=== PATIENT | male | born 1950 | race Caucasian/White ===

== ENCOUNTER 2021-08-24 08:27 | Outpatient (CLI) | payer MEDICARE, SELFPAY | END 2021-08-24 08:28 | disposition home or self-care (01) | LOC: RAD 08:29 | PROVIDERS: PCP Family Medicine; Visit Provider Family Medicine | DX: R01.1 Cardiac murmur, unspecified (principal); Z01.818 Encounter for other preprocedural examination | CPT/HCPCS: 93306 ==

== ENCOUNTER 2021-08-27 06:51 | Day surgery (SDC) | payer MEDICARE, SELFPAY ==
[2021-08-27] VITALS (16 sets, daily range): BP systolic 93–170; BP diastolic 58–90; PULSE 48–65; RESP 12–16; TEMP 36.1–36.4; O2SAT 92–96; BMI 31.3
[2021-08-27] MEDS: SODIUM CHLORIDE 0.9 % (FLUSH) 10 ML SYRINGE IVF (07:40)
[2021-08-27] MEDS: LACTATED RINGERS 1000 ML 1,000 ML 100 ML IV ×2 (07:40→09:07)
[2021-08-27 07:52] LABS: Glucose, Point-of-Care* 149 mg/dl (60-115)
[2021-08-27] MEDS: CEFAZOLIN 2 GM INJ IVP (08:34)
[2021-08-27] MEDS: ROPIVACAINE 0.5% 30 ML 150 MG INJECTION (08:55)
--- NOTE | 2021-08-27 09:11 | P.ORPRC_ITS ---
Procedure Note Date of procedure: 08/27/21 Procedure: PREOPERATIVE DIAGNOSIS: 1. Left knee medial meniscus tear POSTOPERATIVE DIAGNOSIS: 1. Left knee medial meniscus tear 2. 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 Left knee arthroscopic partial medial menisectomy 2. Left chondroplasty medial femoral condyle SURGEON: Davidson Stern M.D. BRICKMASON CONTRACTOR: Kostas THOMSON Of note, an equal opportunity assistant was critical for this case to aid in patient positioning, knee manipulation, instrument exchange, and closure. ANESTHESIA: Spinal EBL: 2ml TOURNIQUET: 25 minutes at 300 torr COMPLICATIONS: None evident INDICATIONS: The patient is a pleasant 70-year-old male who has experienced left knee pain particularly with any twisting or turning. Physical exam was concerning for medial meniscus tear, this was confirmed on MRI. Additionally, attempted nonoperative management has been tried, and failed. Thus, surgery was recommended. FINDINGS: Grade 4 chondromalacia medial femoral condyle with dimensions noted above. Complex tearing posterior horn medial meniscus approaching the posterior root. The tear did penetrate back to the posterior capsule. Lateral meniscus was intact. Lateral articular cartilage intact. Patellofemoral compartment showed grade 2 chondromalacia trochlear groove. ACL and PCL were intact robust. DESCRIPTION OF PROCEDURE: After a thorough discussion of risks, benefits, and alternatives, the patient was brought to the operating room and placed upon the operating table. Induction of anesthesia was undertaken as previously noted. 2g iv Ancef was administered within 1 hr of incision preoperatively. Appropriate time-out was performed identifying proper patient, site, and procedure. The left lower extremity was prepped and draped in the appropriate sterile fashion using ChloraPrep. The limb was exsanguinated and tourniquet inflated. Anterolateral and anteromedial portals were established with an 11 blade, and a diagnostic arthroscopy was performed. This identified the findings as noted above. Following the diagnostic arthroscopy, a partial medial menisectomy was performed with the combination of basket forceps and a motorized shaver. Following this, the meniscus was re-probed and found to be stable. Approximately 25-33 % of the overall meniscus required resection. At this stage, the shaver was reinserted into the suprapatellar pouch and all remaining meniscal debris was evacuated. Instruments were removed, excess fluid was drained, and closure performed with 4-0 Monocryl with Steri-Strips. Dressings were applied, the tourniquet deflated, and the patient was awoken from anesthesia and transferred to the PACU in stable condition. PLAN: 1. Weightbear as tolerated operative extremity. Crutch / walker ambulation assistance PRN. Straight leg raise to be initiated starting tomorrow by the patient. 2. Ice, acetominophen and/or ibuprofen, and Percocet for pain as needed. 3. Knee range of motion and quad sets/straight leg raise regularly 4. Follow up with PA visit in 7-10 days. for a wound check. Initiate physical therapy at that time
--- NOTE | 2021-08-27 09:23 | W.ANESCHARGE ---
Anesthesia Charges Start Date/Time Anesthesia Start Date: 08/27/21 Anesthesia Start Time: 08:26 Stop Date/Time Anesthesia Stop Date: 08/27/21 Anesthesia Stop Time: 09:20 Summary Emergency: No
[2021-08-27] MEDS: OxyCODONE/APAP 5-325 TABLET 1 TAB PO (14:17)
--- NOTE | 2021-08-27 14:24 | SUR.PHASEII ---
At 1300, pt able to bear weight on legs and ambulated with walker to bathroom. pt didn't feel the urge to urinate but his short were wet. He was able to urinate when arriving to bathroom. Upon discharge, pt reported left knee pain 6/10, facial grimacing and moving in chair. See eMAR.
== END 2021-08-27 14:26 | disposition home or self-care (01) ==
PROVIDERS: PCP Family Medicine; Visit Provider Orthopaedic Surgery Sports Medicine
PROC: (CPT 29870; principal; 2021-08-27 08:30)
DX: M23.222 Derangement of posterior horn of medial meniscus due to old tear or injury, left knee (principal); M94.262 Chondromalacia, left knee
CPT/HCPCS: 29881; 29879; 01400; 82947; A9270; J0690; J2250; J2405; J2704; J2795; J3010; J7120

== ENCOUNTER 2021-11-05 16:08 | Outpatient (CLI) | payer MEDICARE, SELFPAY ==
[2021-11-05 14:04] LABS: Chloride* 100 mmol/L (96-114); Sodium* 137 mmol/L (135-149)
[2021-11-05 14:07] LABS: Creatinine* 1.2 mg/dL (0.5-1.5); Estimated Glomerular Filt Rate 65 ml/min
[2021-11-05 14:08] LABS: Blood Urea Nitrogen* 18 mg/dL (7-30); Calcium* 9.1 mg/dL (8.4-10.6); Carbon Dioxide* 26 mmol/L (20-32); Glucose* 142 mg/dL (60-115)
== END 2021-11-05 16:09 | disposition home or self-care (01) ==
PROVIDERS: PCP Family Medicine; Visit Provider Family Medicine
DX: E11.9 Type 2 diabetes mellitus without complications (principal)
CPT/HCPCS: 80048

== ENCOUNTER 2021-12-03 14:38 | Outpatient (CLI) | payer MEDICARE, SELFPAY ==
--- OUTSIDE RECORDS SUMMARY | 2021-12-03 08:21 | XMS_ITS | Clinical Summary ---
:1950 Author Organization Supply Address [facility] [place] [address] Care Team Providers Name Role Phone Victor Manuel Olea MD Primary Care Provider [phone] Allergies No known active allergies Medications Medication Sig Dispensed Refills Start Date End Date Status loratadine (CLARITIN) 10 MG Take 10 mg by 0 Active tablet mouth daily LOSARTAN POTASSIUM PO 0 Active Rosuvastatin Calcium Take 5 mg by 0 Active (CRESTOR PO) mouth Aspirin 75 MG Take 81 mg by 30 tablet 1 03/25/2014 A ctive CHEWIndications: Family mouth daily history of ischemic heart disease hydrochlorothiazide 12.5 MG Take 1 tablet 30 tablet 0 03/04/19 18 Active TABS tablet (12.5 mg) by mouth daily Social History Tobacco Use Types Packs/Day Years Used Date Smoking Tobacco: Never Alcohol Use Standard Drinks/Week Comments Yes 0 (1 standard drink = 0.6 oz pure alcoho l) social Sex Assigned at Date Recorded Not on file Last Filed Vital Signs Vital Sign Reading Time Taken Comments Blood Pressure 175/109 03/04/2017 8:15 PM MEETING FACILITATOR Pulse 68 03/04/2017 6:32 PM MEETING FACILITATOR Temperature 36.3 ??C (97.4 ??F) 03/04/2017 6:32 PM MEETING FACILITATOR Respiratory Rate 14 03/04/2017 8:15 PM MEETING FACILITATOR Oxygen Saturation 93% 03/04/2017 8:00 PM MEETING FACILITATOR Inhaled Oxygen Concentration - - Weight 104.3 kg (230 lb) 03/25/2014 9:13 AM MEETING FACILITATOR Height 175.3 cm (5' 9) 03/25/2014 9:13 AM MEETING FACILITATOR Body Mass Index 33.97 03/25/2014 9:13 AM MEETING FACILITATOR Plan of Treatment Not on file Care Teams Jewel Gauger Relationship Specialty Start Date End Date Victor Manuel Olea MD PCP - General 03/04/17
--- OUTSIDE RECORDS SUMMARY | 2021-12-03 08:21 | XMS_ITS | Encounter Summary ---
:1950 Author Organization [place] Address [address] [place] [address] Care Team Providers Name Role Phone Victor Manuel Olea MD Primary Care Provider [phone] Reason for Visit Reason Comments Hypertension Encounter Details Date Type Department Care Team Description 03/04/2017 Emergency [facility]den Burton, Essential hypertension [facility] Emergency DO Dept [facility] [address] [place], [place] [address] [employer] [address] [id number] [place] [address] (Wo rk) Social History Tobacco Use Types Packs/Day Years Used Date Smoking Tobacco: Never Alcohol Use Standard Drinks/Week Comments Yes 0 (1 standard drink = 0.6 oz pure alcoho l) social Sex Assigned at Date Recorded Not on file documented as of this encounter Last Filed Vital Signs Vital Sign Reading Time Taken Comments Blood Pressure 175/109 03/04/2017 8:15 PM BIOTECHNICIAN Pulse 68 03/04/2017 6:32 PM BIOTECHNICIAN Temperature 36.3 ??C (97.4 ??F) 03/04/2017 6:32 PM BIOTECHNICIAN Respiratory Rate 14 03/04/2017 8:15 PM BIOTECHNICIAN Oxygen Saturation 93% 03/04/2017 8:00 PM BIOTECHNICIAN Inhaled Oxygen Concentration - - Weight - - Height - - Body Mass Index - - documented in this encounter Discharge Instructions Discharge InstructionsJayden Valladares, - 03/04/2017 7:38 PM BIOTECHNICIAN Images from the original note were not included. High Blood Pressure,??New, Begin Treatment Your blood pressure was high enough today to start treatment with medicines. Often health care providers don???t know what causes high blood pressure (hypertension). But it can be controlled with lifestyle changes and medicines. High blood pressure usually has no symptoms. But it can sometimes cause he adache, dizziness, blurred vision, a rushing sound in your ears, chest pain, or shortness of breath.But even without symptoms, high blood pressure that???s not treated raises your risk for heart attack and stroke. High blood pressure is a serious health risk and shouldn???t be ignored. A blood pressure reading is made up of two numbers: a higher number over a lower number.??The top number is the systolic pressure. The bottom number is the diastolic pressure.??A normal blood pressure is a systolic pressure of less than 120 over a diastolic pressure less than 80. You will see your blood pressure readings written together. For example, a person with a systolic pressure of 118 and a diastolic pressure of 78 will have 118/78 written in the medical record.?? High blood pressure is when either the top number is 140 or higher, or the bottom number is 90 or higher. High blood pressure is diagnosed when multiple, separate readings show blood pressures above 140/90. The blood pressures between normal and high are called prehypertension. Home care If you have high blood pressure, you should do what is listed below to lower your blood pressure. Ifyou are taking medicines for high blood pressure, these methods may reduce or end your need for medicines in the future. ?? Begin a weight-loss program if you are overweight. ?? Cut back on how much salt you get in your diet. Here???s how to do this: ?? Don???t eat foods that have a lot of salt. These include olives, pickles, smoked meats, and salted potato chips. ?? Don???t add salt to your food at the table. ?? Use only small amounts of salt when cooking. ?? Review food labels to track how much salt is in prepared foods. ?? When eating out, ask that no additional salt be added to your food order. ?? Begin an exercise program. Talk with your health care provider about the type of exercise programthat would be best for you. It doesn't have to be hard. Even brisk walking for 20 minutes 3 times a week is a good form of exercise. ?? Don???t take medicines that have heart stimulants. This includes many zlkq-mcd-ewizudc cold and sinus decongestant pills and sprays, as well as diet pills. Check the warnings about hypertension on the label. Before purchasing any qwgu-doo-wwzcgvi medicines or supplements, always ask the pharmacist about the product's potential interaction with your high blood pressure and your high blood pressure medicines. ?? Stimulants such as amphetamine or cocaine could be lethal for someone with high blood pressure. Never take these. ?? Limit how much caffeine you get in your diet. Switch to caffeine-free products. ?? Stop smoking. If you are a long-time smoker, this can be hard. Enroll in a stop-smoking program to make it more likely that you will quit for good. ?? Learn how to handle stress. This is an important part of any program to lower blood pressure. Learn about relaxation methods like meditation, yoga, or biofeedback. ?? If your provider prescribed medicines, take them exactly as directed. Missing doses may cause your blood pressure get out of control. ?? If you miss a dose or doses, check with your healthcare provider or pharmacist about what to do. ?? Consider buying an automatic blood pressure machine. Your provider can make a recommendation. Youcan get one of these at most pharmacies. The [place] [employer] recommends the following guidelines for home blood pressure monitoring: ?? Don't smoke or drink coffee for 30 minutes before taking your blood pressure. ?? Go to the bathroom before the test. ?? Relax for 5 minutes before taking the measurement. ?? Sit with your back supported (don't sit on a couch or soft chair); keep your feet on the floor uncrossed. Place your arm on a solid flat surface (like a table) with the upper part of the arm at heart level. Place the middle of the cuff directly above the eye of the elbow. Check the monitor's instruction manual for an illustration. ?? Take multiple readings. When you measure, take 2 to 3 readings one minute apart and record all ofthe results. ?? Take your blood pressure at the same time every day, or as your healthcare provider recommends. ?? Record the date, time, and blood pressure reading. ?? Take the record with you to your next medical appointment. If your blood pressure monitor has a built-in memory, simply take the monitor with you to your next appointment. ?? Call your provider if you have several high readings. Don't be frightened by a single high blood pressure reading, but if you get several high readings, check in with your healthcare provider. ?? Note: When blood pressure reaches a systolic (top number) of 180 or higher OR diastolic (bottom number) of 110 or higher, seek emergency medical treatment. Follow-up care Because a new blood pressure medicine was started today, it???s important that you have your blood pressure rechecked. This is to make sure that the medicine is working and that you have no serious side effects. Keep all your follow up appointments. Write down medicine and blood pressure questions andbring them to your next appointment. If you have pressing concerns about your new medicine or your blood pressure, call your provider. Unless told otherwise, follow up with your health care provider orthis facility within the next 3 days. When to seek medical advice Call your healthcare provider right away if any of these occur: ?? Blood pressure reaches a systolic (top number) of 180 or higher, OR diastolic (bottom number) of 110 or higher, seek emergency medical treatment. ?? Chest pain or shortness of breath ?? Severe headache ?? Throbbing or rushing sound in the ears ?? Nosebleed ?? Sudden severe pain in your belly (abdomen) ?? Extreme drowsiness, confusion, or fainting ?? Dizziness or dizziness with a spinning sensation (vertigo) ?? Weakness of an arm or leg or one side of the face ?? You have problems speaking or seeing?? Date Last Reviewed: 01/11/2016 ?? [id number] [employer]. [address] [place] [address]. All rights reserved. This information is not intended as a substitute for professional medical care. Always follow your healthcare professional's instructions. ECHNICIAN documented in this encounter Medications at Time of Discharge Medication Sig Dispensed Refills Start Date End Date Aspirin 75 MG CHEWIndications: Take 81 mg by 30 tablet 1 Family history of ischemic mouth daily heart disease hydrochlorothiazide 12.5 MG Take 1 tablet 30 tablet 0 03/04 TABS tablet (12.5 mg) by mouth daily loratadine (CLARITIN) 10 MG Take 10 mg by 0 tablet mouth daily LOSARTAN POTASSIUM PO 0 Rosuvastatin Calcium (CRESTOR Take 5 mg by 0 PO) mouth documented as of this encounter ED Notes Margarita Corbin RN - 03/04/2017 6:28 PM CST Hypertension at clinic today. Went home and continued to be high. ABCs intact. Alert and oriented x 3. ECHNICIAN Jayden Valladares DO - 03/04/2017 6:27 PM CST History Chief Complaint: Hypertension HPI Ciro Jasso is a 66 year old male with a history of hypertension who presents to the emergency department today for evaluation of hypertension. The patient reports he initially presented to his primary clinic for shoulder pain. He has been taking hydrocodone for the pain, past dose two days ago. However, at that visit they measured his blood pressure to be around 200/100. They agreed to discharge the patient to home for observation and measure his blood pressure at home. His wrist machine measured a little higher than the clinic, therefore, prompting his visit to the ED for further evaluation. Upon presentation, his blood pressure is 201/108. Patient states this the highest his blood pressure has ever been and he is not currently taking any antihypertensives. He also endorses neck pain although notes this may be secondary to recently shoveling. The patient has no other concerns at this time and otherwise feels well. Of note, the patient reports intermittent right ankle swelling since his surgery although no swelling currently. No recent trauma. Furthermore, he has an appointment with his PCP in two days. Allergies: No Known Drug Allergies Medications: Aspirin 75 MG CHEW loratadine (CLARITIN) 10 MG tablet LOSARTAN POTASSIUM PO Rosuvastatin Calcium (CRESTOR PO) Past Medical History: Basal cell carcinoma Hypertension Sleep apnea Past Surgical History: Wedge resection eyelid Right leg surgery Colonoscopy Family History: History reviewed. No pertinent family history. Social History: The patient was accompanied to the ED by his . Smoking Status: Never Alcohol Use: Yes Marital Status: Review of Systems Musculoskeletal: Positive for arthralgias and neck pain. Negative for joint swelling and neck stiffness. Neurological: Negative for dizziness. All other systems reviewed and are negative. Physical Exam First Vitals: BP: (!) 201/108 Pulse: 68 Temp: 97.4 ??F (36.3 ??C) Resp: 20 SpO2: 94 % Physical Exam Constitutional: Patient appears well-developed and well-nourished. There is no acute distress. Head: No external signs of trauma noted. Neck: No JVD noted Eyes: Pupils are equal, round, and reactive to light. Cardiovascular: Normal rate, regular rhythm and normal heart sounds. Exam reveals no gallop and no friction rub. No murmur heard. Normal peripheral pulses. Pulmonary/Chest: Effort normal and breath sounds normal. No respiratory distress. Patient has no wheezes. Patient has no rales. Abdominal: Soft. There is no tenderness. Extremities: No edema noted Neurological: Patient is alert and oriented to person, place, and time. Skin: Skin is warm and dry. There is no diaphoresis noted. Emergency Department Course ECG: Indication: Hypertension Completed at 183. Read at 1840. Normal sinus rhythm Minimal voltage criteria for LVH, may be normal variant Borderline ECG No significant change compared to 03/08/14 Rate 69 bpm. SD interval 180. QRS duration 92. QT/QTc 418/447. P-R-T axes 17 -23 25. Laboratory: Laboratory findings were communicated with the patient and family who voiced understanding of the findings. CBC: WNL. (WBC 8.9, HGB 13.8, PLT 207) BMP: Glucose 157 (H) o/w WNL (Creatinine 0.99) Troponin (Collected 1844): 0.015 Interventions: 2014 Hydrochlorothiazide 12.5mg PO Emergency Department Course: Nursing notes and vitals reviewed. IV was inserted and blood was drawn for laboratory testing, results above. 183: I performed an exam of the patient as documented above. 1950: Patient rechecked and updated. Findings and plan explained to the Patient and spouse. Patient discharged home with instructions regarding supportive care, medications, and reasons to return. The importance of close follow-up was reviewed. The patient was prescribed hydrochlorothiazide. I personally reviewed the laboratory results with the Patient and answered all related questions prior to discharge. Impression & Plan Medical Decision Making: The patient presents to the ER due to hypertension. Please see the HPI and exam for specifics. The patient has been asymptomatic during his time in the ED. His blood pressure is elevated. In discussionwith the patient, it sounds like it has been elevated on a couple of clinic visits. The patient doeshave a follow up this Friday. His labs are normal including creatinine. At this time, I believe it would be reasonable to start the patient on hydrochlorothiazide and have him follow up closely in the clinic on Friday at his scheduled appointment and they can discuss dosage changes or different regimens at that time. Anticipatory guidance given to and patient prior to discharge. Diagnosis: ICD-10-CM 1. Essential hypertension I10 Disposition: Discharged to home Discharge Medications: New Prescriptions HYDROCHLOROTHIAZIDE 12.5 MG TABS TABLET Take 1 tablet (12.5 mg) by mouth daily Scribe Disclosure: Yadira Monaco, am serving as a scribe at 6:32 PM on 03/04/2017 to document services personally performed by Jayden Valladares DO based on my observations and the provider's statements to me. 03/04/2017 [facility] EM[facility]Y [facility] Jayden Valladares DO 03/04/17 2542 ECHNICIAN documented in this encounter Plan of Treatment Not on filedocumented as of this encounter Procedures Procedure Name Priority Date/Time Associated Comments Diagnosis CBC WITH PLATELETS & STAT 03/04/2017 6:45 PM R esults for this DIFFERENTIAL BIOTECHNICIAN procedure are i n the results section. TROPONIN I STAT 03/04/2017 6:45 PM Results f or this BIOTECHNICIAN procedure are i n the results section. BASIC METABOLIC PANEL STAT 03/04/2017 6:45 PM Results for this BIOTECHNICIAN procedure are i n the results section. EKG 12-LEAD, TRACING STAT 03/04/2017 6:36 PM R esults for this ONLY BIOTECHNICIAN procedure are i n the results section. documented in this encounter Results Troponin I (03/04/2017 6:45 PM BIOTECHNICIAN) athologist Signature Troponin I ES 0.015 0.000 - 03/04/2017 [place] 0.045 ug/L 7:20 PM [facility] Comment: The 99th percentile for upper reference range is 0.045 ug/L. ??Troponin values in the range of 0.045 - 0.120 ug/L may b e associated with risks of adverse clinical events. Specimen Anatomical Collection Method Collection Time Receive d Time (Source) Location / / Volume Laterality Blood specimen 03/04/2017 6:45 PM 018 6:57 (specimen) BIOTECHNICIAN PM BIOTECHNICIAN Jayden Valladares DO LAB - BLOOD ORDERABLES Performing Organization Address City/State/ZIP Code Phon e Number [facility] [address], [place] [address] [facility] [address], [place] [address] [phone] (ABNORMAL) Basic metabolic panel (03/04/2017 6:45 PM BIOTECHNICIAN) athologist Signature Sodium 136 133 - 144 03/04/2017 [place] mmol/L 7:20 PM [facility] Potassium 3.7 3.4 - 5.3 03/04/2017 [place] mmol/L 7:20 PM [facility] Chloride 104 94 - 109 03/04/2017 [place] mmol/L 7:20 PM [facility] Carbon Dioxide 23 20 - 32 03/04/2017 [place] mmol/L 7:20 PM [facility] Anion Gap 9 3 - 14 03/04/2017 [place] mmol/L 7:20 PM [facility] Glucose 157 (H) 70 - 99 03/04/2017 [place] mg/dL 7:20 PM [facility] Urea Nitrogen 21 7 - 30 03/04/2017 [place] mg/dL 7:20 PM [facility] Creatinine 0.99 0.66 - 03/04/2017 [facility] 1.25 mg/dL 7:20 PM [facility] GFR Estimate 76 >60 03/04/2017 [facility] mL/min/1.7 7:[address] Comment: Non GFR Calc GFR Estimate If >90 >60 mL/min/1.7m2 03/04/2017 7:[address] [facility] Comment: GFR Calc Calcium 8.7 8.5 - 10.1 mg/dL 03/04/2017 7:20 PM [facility] Specimen Anatomical Collection Method Collection Time Receive d Time (Source) Location / / Volume Laterality Blood specimen 03/04/2017 6:45 PM 018 6:57 (specimen) BIOTECHNICIAN PM BIOTECHNICIAN Jayden Valladares DO LAB - BLOOD ORDERABLES Performing Organization Address City/State/ZIP Code Phon e Number [facility] [address], [place] [address] [facility] [address], [place] [address] [facility] [phone] (ABNORMAL) CBC with platelets differential (03/04/2017 6:45 PM BIOTECHNICIAN) [facility] gist Method Time Signature WBC 8.9 4.0 - 03/04/2017 [facility] 11.0 7:00 PM [facility] 10e9/L [facility] RBC Count 4.40 4.4 - 5.9 03/04/2017 [facility] 10e12/L 7:00 PM [facility] Hemoglobin 13.8 13.3 - 03/04/2017 [facility] 17.7 g/dL 7:00 PM [facility] Hematocrit 39.7 (L) 40.0 - 03/04/2017 [facility] 53.0 % 7:00 PM [facility] MCV 90 78 - 100 03/04/2017 [facility] fl 7:00 PM [facility] MCH 31.4 26.5 - 03/04/2017 [facility] 33.0 pg 7:00 PM [facility] MCHC 34.8 31.5 - 03/04/2017 [facility] 36.5 g/dL 7:00 PM [facility] RDW 12.6 10.0 - 03/04/2017 [facility] 15.0 % 7:00 PM [facility] Platelet Count 207 150 - 450 03/04/2017 [facility] 10e9/L 7:00 PM [facility] Diff Method Automated 03/04/2017 [facility] Method 7:00 PM [facility] % Neutrophils 54.8 % 03/04/2017 [facility] 7:00 PM [facility] % Lymphocytes 27.4 % 03/04/2017 [facility] 7:00 PM [facility] % Monocytes 11.8 % 03/04/2017 [facility] 7:00 PM [facility] % Eosinophils 5.0 % 03/04/2017 [facility] 7:00 PM [facility] % Basophils 0.8 % 03/04/2017 [facility] 7:00 PM [facility] % Immature 0.2 % 03/04/2017 [facility] Granulocytes 7:00 PM [facility] Nucleated RBCs 0 0 /100 03/04/2017 [facility] 7:00 PM [facility] Absolute 4.9 1.6 - 8.3 03/04/2017 [facility] Neutrophil 10e9/L 7:00 PM [facility] Absolute 2.4 0.8 - 5.3 03/04/2017 [facility] Lymphocytes 10e9/L 7:00 PM [facility] Absolute 1.1 0.0 - 1.3 03/04/2017 [facility] Monocytes 10e9/L 7:00 PM [facility] Absolute 0.4 0.0 - 0.7 03/04/2017 [facility] Eosinophils 10e9/L 7:00 PM [facility] Absolute 0.1 0.0 - 0.2 03/04/2017 [facility] Basophils 10e9/L 7:00 PM [facility] Abs Immature 0.0 0 - 0.4 03/04/2017 [facility] Granulocytes 10e9/L 7:00 PM [facility] Absolute 0.0 03/04/2017 [facility] Nucleated RBC 7:00 PM [facility] Specimen Anatomical Collection Method Collection Time Receive d Time (Source) Location / / Volume Laterality Blood specimen 03/04/2017 6:45 PM 018 6:57 (specimen) BIOTECHNICIAN PM BIOTECHNICIAN Jayden Valladares DO LAB - BLOOD ORDERABLES Performing Organization Address City/[facility]/ZIP Code Phon e Number [facility] [address] [place] [address] [facility] [address] [phone] EKG 12 lead (03/04/2017 6:36 PM BIOTECHNICIAN) [facility] gist Method Time Signature Interpretation ECG Click View RADIOLOGY Image link RESULTS to view waveform and result Specimen (Source) Anatomical Collection Method Collection Time Re ceived Time Location / / Volume Laterality 03/04/2017 6:36 PM BIOTECHNICIAN Wilma Aldana MD ECG ORDERABLES Performing Organization Address City/[facility]/ZIP [facility] Phon e Number RADIOLOGY RESULTS documented in this encounter Visit Diagnoses Diagnosis Essential hypertension Unspecified essential hypertension documented in this encounter Administered Medications Inactive Administered Medications - up to 3 most recent administrations Medication Order MAR Action Action Date Dose Rate Site hydrochlorothiazide (MICROZIDE) Given 03/04/2017 8:15 PM 12.5 mg capsule 12.5 mg BIOTECHNICIAN 12.5 mg, Oral, ONCE, On Fri03/04/17 at 1936, For 1 dose documented in this encounter Active and Recently Administered Medications Times are shown in BIOTECHNICIAN. Scheduled Medication Order 03/02/2017 03/03/2017 03/04/2017 hydrochlorothiazide (MICROZIDE) capsule 12.5 mg (COMPLETED) 2014 (Given - Provider: Carol Holden RN) 12.5 mg, Oral, ONCE, On Fri03/04/17 at 1936, For 1 dose documented in this encounter Care Teams Administration Professional Relationship Specialty Start Date End Date Victor Manuel Olea MD PCP - General 03/04/17 documented as of this encounter
--- OUTSIDE RECORDS SUMMARY | 2021-12-03 08:22 | XMS_ITS | Encounter Summary ---
:1950 Author Organization [place] Address [facility] [address] Care Team Providers Name Role Phone Unavailable Primary Care Provider Unavailable Encounter Details Date Type Department Care Team Description 03/31/2007 Historic Results INTERFACED REPORT Humberto Chávez MD ENT SPECIALTY [place] [facility] [place] [address] [place], [place] [id number] (Wo rk) Social History Tobacco Use Types Packs/Day Years Used Date Smoking Tobacco: Never Assessed Sex Assigned at Date Recorded Not on file documented as of this encounter Plan of Treatment Not on filedocumented as of this encounter Procedures Procedure Name Priority Date/Time Associated Comments Diagnosis HEMOGRAM DIFFERENTIAL Routine 03/31/2007 6:35 AM Results for this AND PLATELET VESSEL ENGINEER procedure are i n the results section. documented in this encounter Results (ABNORMAL) Hemogram differential and platelet (03/31/2007 6:35 AM VESSEL ENGINEER) [facility] Method Time Signature MCV 90 78 - 100 [facility] fl MCH 30.5 26.5 - [facility] 33.0 pg MCHC 33.8 31.5 - [facility] 36.5 g/dL RDW 13.2 10.0 - [facility] 15.0 % WBC 13.3 (H) 4.0 - [facility] 11.0 10e9/L RBC Count 4.52 4.4 - 5.9 [facility] 10e12/L Hemoglobin 13.8 13.3 - [facility] 17.7 g/dL Hematocrit 40.8 40.0 - [facility] 53.0 % % Neutrophils 70 40 - 75 % [facility] % Lymphocytes 16 (L) 20 - 48 % [facility] % Monocytes 11 0 - 12 % [facility] % Eosinophils 3 0 - 6 % [facility] % Basophils 0 0 - 2 % [facility] Platelet Count 260 150 - 450 [facility] 10e9/L Absolute 9.3 (H) 1.6 - 8.3 [facility] Neutrophil 10e9/L Absolute 2.1 0.8 - 5.3 [facility] Lymphocytes 10e9/L Absolute 1.5 (H) 0.0 - 1.3 [facility] Monocytes 10e9/L Absolute 0.4 0.0 - 0.7 [facility] Eosinophils 10e9/L Absolute 0.0 0.0 - 0.2 [facility] Basophils 10e9/L Diff Method Automated [facility] Method Specimen (Source) Anatomical Collection Method Collection Time Re ceived Time Location / / Volume Laterality 03/31/2007 6:35 AM 8 VESSEL ENGINEER Humberto Chávez MD LAB - BLOOD ORDERABLES Performing Organization Address City/State/ZIP Code Phon e Number [facility] documented in this encounter Visit Diagnoses Not on filedocumented in this encounter
--- OUTSIDE RECORDS SUMMARY | 2021-12-03 08:22 | XMS_ITS | Encounter Summary ---
:1950 Author Organization [place] Address [facility] [place] [address] Care Team Providers Name Role Phone Unavailable Primary Care Provider Unavailable Encounter Details Date Type Department Care Team Description 03/30/2007 Historic Notes INTERFACED REPORT Interface, Transcript MD jasmine Social History Tobacco Use Types Packs/Day Years Used Date Smoking Tobacco: Never Assessed Sex Assigned at Date Recorded Not on file documented as of this encounter Progress Notes Interface, Blueprint Maker - 04/30/2010 3:04 AM CDT General Information General Information - <R> How to be addressed liudmila - <R> Lead Driver Needed No - Temporary living arrangements None required Patient Contact Information - <R> draftsperson to notify: Dionna Faria - <R> Phone 1: [phone] - Phone 2: [phone] Advance Directive Advanced Health Care Directive Information - <R> Do you have a Advance Health No Care Directive? - Can patient name a Surrogate Yes Decision Maker? (Not legally binding) - Surrogate Name: Dionna faria - <R> Would you like to receive No information about Advanced Directives? Valuables Valuables - Valuables Yes - Type of Valuables Shirt; Pants; Shoes; Socks; Right hearing aide, watch Health and Illness History Health and Illness History - <R> Reason for admission/chief Lump on neck complaint as stated by patient Previous reaction to anesthesia - Previous reaction to anesthesia No Allergies ?? No Known Allergies;Active Substance Use Tobacco Use - <R> Tobacco Use None Caffeine Use - <R> Caffeine Use Yes - Caffeine Type Pop/soda - Caffeine Amount < 3 cups/day Alcohol Use - <R> History of Alcohol Use Yes - Alcohol Type Beer - Alcohol Frequency two a week Street Drug/Inhalant/Medication Abuse - <R> History of street No drug/inhalant/ medication abuse Transfusion History Transfusion History - Blood Avoidance/Restrictions No - Previous blood transfusion No Review of Systems Cardiac - Cardiac Problems Yes - Cardiac Conditions/Symptoms Elevated cholesterol Pulmonary - Pulmonary Problems No Peripheral Vascular - Peripheral Vascular Problems No Neuro-Muscular - Neuro Muscular Problems Yes - Neuro Muscular Headaches headaches in last three Conditions/Symptoms months in back of head takes advil for the pain ENT - ENT Problems No GI - GI Problems No Bowel Pattern - Date of last bowel movement Date of last BM, 03-30-07 Bowel Program - Bowel Program No - Problems No Bladder Program - Bladder Program No Skin - Skin Problems Yes - Skin Conditions/Problems Dry skin on left thumb by the nail Immune - <R> Immune Problems No - <R> Immunizations Current Immunizations current Endocrine - <R> Endocrine Problems No Mental Health - <R> Mental Health Problems No Cognitive Perceptual Sensory Deficits/Cognition - <R> Alterations in Sensation No - <R> Vision Problems No - <R> Hearing Problems Yes - Hearing problems present Hearing loss on left side; Hearing changed since swelling has occured - <R> Use of Sensory Assistive No Devices - <R> Reading Problems No - <R> Communication Problems No - <R> Changes in thought No Process/Behavior Activity-Exercise/Self Care Functional Screen - <R> Ambulation 0 - Independent with ambulation - <R> Transferring 0 - Independent with transfers - <R> Toileting 0- Independent with toileting - <R> Bathing 0- Independent with bathing - <R> Dressing 0- Independent with dressing - <R> Eating 0- Independent with eating - <R> Swallowing none - <R> Fall history within last six No history of falls months - <R> Which of the above functional None risks had a recent onset or change? Living Environment - Lives with Spouse - Describe living environment House Nutrition/Metabolic Nutrition Risk Screen - <R> Nutrition Risk Screen No risk indicators present, appetite not as big as usual Sleep/Relaxation Sleep Pattern - <R> Problems Sleeping Yes - Problems Sleep apnea Role Relationships Abuse Risk Screen - <R> QUESTION TO PATIENT: Are you No. now or have you ever been in a relationship where you have been abused physically, emotionally or sexually? - <R> NURSE OBSERVATION: Is there No reasonable cause to believe the patient has been abused, assaulted, is self abusive, neglected or exploited? Coping-Stress Tolerance Coping-Stress - <R> Have you had a recent major No change/significant loss/stressor in your life Values/Beliefs/Spiritual Care Values/Beliefs/Spiritual Care - <R> Would you like pastoral Does not wish to have anyone care/clergy/solution advisor contacted notified? Mutuality/Individual Preferences Mutuality/Preferences - <R> What information would help will let us know us give you more personalized care? - <R> What if any limitations on None visitors, TV or phone calls would you like Signatures Bessy Alvarez (RN)[Signed 17:03] Authored: General Information, Allergies, Activity-Exercise/Self Care, Role Relationships VAL CORONADO (SCRAP BUNCH MAKER)[Signed 15:32] Authored: General Information, Advance Directive, Valuables, Health and Illness History, Substance Use, Transfusion History, Review of Systems, Cognitive Perceptual, Activity-Exercise/Self Care, Nutrition/Metabolic, Sleep/Relaxation, Coping-Stress Tolerance, Values/Beliefs/Spiritual Care, Mutuality/Individual Preferences documented in this encounter Plan of Treatment Not on filedocumented as of this encounter Visit Diagnoses Not on filedocumented in this encounter
--- OUTSIDE RECORDS SUMMARY | 2021-12-03 08:22 | XMS_ITS | Encounter Summary ---
:1950 Author Organization [place] Address [facility] [place] [address] Care Team Providers Name Role Phone Unavailable Primary Care Provider Unavailable Encounter Details Date Type Department Care Team Description 03/30/2007 Historic Results INTERFACED REPORT Humberto Chávez MD ENT SPECIALTY CA RE OF [place] [address] [place], [place] [address] (Wo rk) Social History Tobacco Use Types Packs/Day Years Used Date Smoking Tobacco: Never Assessed Sex Assigned at Date Recorded Not on file documented as of this encounter Plan of Treatment Not on filedocumented as of this encounter Procedures Procedure Name Priority Date/Time Associated Comments Diagnosis HEMOGRAM DIFFERENTIAL Timed 03/30/2007 5:50 PM Results for this AND PLATELET TRAVEL REGISTERED NURSE ONCOLOGY procedure are i n the results section. documented in this encounter Results (ABNORMAL) Hemogram differential and platelet (03/30/2007 5:50 PM TRAVEL REGISTERED NURSE ONCOLOGY) [facility] Method Time Signature MCV 88 78 - 100 MISYS fl MCH 31.3 26.5 - MISYS 33.0 pg MCHC 35.5 31.5 - MISYS 36.5 g/dL RDW 13.1 10.0 - MISYS 15.0 % WBC 14.6 (H) 4.0 - MISYS 11.0 10e9/L RBC Count 4.53 4.4 - 5.9 MISYS 10e12/L Hemoglobin 14.2 13.3 - MISYS 17.7 g/dL Hematocrit 40.0 40.0 - MISYS 53.0 % % Neutrophils 73 40 - 75 % MISYS % Lymphocytes 13 (L) 20 - 48 % MISYS % Monocytes 12 0 - 12 % MISYS % Eosinophils 2 0 - 6 % MISYS % Basophils 0 0 - 2 % MISYS Platelet Count 281 150 - 450 MISYS 10e9/L Absolute 10.6 (H) 1.6 - 8.3 MISYS Neutrophil 10e9/L Absolute 1.9 0.8 - 5.3 MISYS Lymphocytes 10e9/L Absolute 1.7 (H) 0.0 - 1.3 MISYS Monocytes 10e9/L Absolute 0.3 0.0 - 0.7 MISYS Eosinophils 10e9/L Absolute 0.0 0.0 - 0.2 MISYS Basophils 10e9/L Diff Method Automated MISYS Method Specimen Anatomical Collection Method Collection Time Receive d Time (Source) Location / / Volume Laterality 03/30/2007 5:50 PM 8 3:50 TRAVEL REGISTERED NURSE ONCOLOGY PM TRAVEL REGISTERED NURSE ONCOLOGY Humberto Chávez MD LAB - BLOOD ORDERABLES Performing Organization Address City/State/ZIP Code Phon e Number MISYS documented in this encounter Visit Diagnoses Not on filedocumented in this encounter
--- OUTSIDE RECORDS SUMMARY | 2021-12-03 08:22 | XMS_ITS | Encounter Summary ---
:1950 Author Organization [place] Address [address] [facility] [facility] [place] [address] Care Team Providers Name Role Phone Unavailable Primary Care Provider Unavailable Encounter Details Date Type Department Care Team Description 04/02/2007 Historic Notes INTERFACED REPORT Interface, Transcript onMD Social History Tobacco Use Types Packs/Day Years Used Date Smoking Tobacco: Never Assessed Sex Assigned at Date Recorded Not on file documented as of this encounter Progress Notes Interface, Windows Systems Admin - 04/30/2010 2:54 AM CDT SH - Routine visit of Pt. Pt. was sitting up in bed watching TV and reading. Pt. said he was hopeful that he would be going home today or tomorrow. Pt. said he thought the care at the hospital was great, but wanted to get home. Pt. mentioned thankfulness that his mohs surgeon had visited him yesterday. Pt. expressed no needs. Band Splicer offered emotional/spiritual support through active listening. [Signature] Author:LISSA JAVIER (Band Splicer Road Gang Supervisor) [Signed 10:45] Interface, Windows Systems Admin - 04/30/2010 2:54 AM CDT Care Mgt Team:CC D: Spoke with [facility] to verify benefits. PT has 80% coverage after a $200 out of pocket co pay and a 20% out of pocket up until $2500 deductable has been met. After that pt has 100% coverage. AT this point due to hospital stay pt probably has 100% coverage should home IV's be needed at discharge. [Signature] Author:Candi Purdy (CUT OFF MACHINE OPERATOR) [Signed 10:43] Interface, Windows Systems Admin - 04/30/2010 2:52 AM CDT MD Notification - Notified Person:: MD - Notified Persons Name: Nikos Sanchez - Notification Time:: 16:55 - Notification Interaction:: Talked with Physician - Purpose of notification:: Lab results - Orders received?: No - Comments:: Results of neck abscess gram stain results read to Dr. Sanchez: few gram + cocci in pairs with many PMNs. Not able to do AFB due to inadequate fluid amount. MD will see patient again tonight. Signatures Bessy Alvarez (RN)[Signed 16:58] Authored: MD Notification Interface, Windows Systems Admin - 04/30/2010 2:52 AM CDT Patient Status Patient Status - Physical status Stable (s/s of potential complications absent or manageable) - Psychosocial status Stable Discharge Planning - Discharge From: [facility] - Patient Care Unit: Med-Surg 2 - PCU - Discharge To: Home/Alternative home - Method of discharge: Ambulatory - Transportation: Private Discharge Information Discharge Information - Discharge information Discharge instructions reviewed with pt/family/so - Accompanied by Spouse - Mode of Travel Wheelchair Medications and Prescriptions Medications and Prescriptions - Medications and Prescriptions Called to [facility] by Dr. Sanchez Special Care Needs and Instructions - Diet Instructions: Regular diet as you tolerate. Drink plenty of fluids with the antibiotics. - Activity Instructions: No strenuous activity for 7 days. - Report temp if greater than: 101 degrees F - Symptoms/Problems to look for at Streaking or redness in aspiration home- call the physician about: area. Increasing swelling or tenderness. Difficulty swallowing or breathing. - Who patient should call: Dr. Sanchez's Office - Phone number of who patient [phone] should call: Follow Up Care Physician Appointments - Physician/clinician name: Dr. Sanchez - - When to see physician/clinician: Friday or [place] next week (4-5 days) Signatures [place], Bessy (RN)[Signed 18:59] Authored: Patient Status, Discharge Planning, Discharge Information, Medications and Prescriptions, Special Care Needs and Instructions, Follow Up Care documented in this encounter Plan of Treatment Not on filedocumented as of this encounter Visit Diagnoses Not on filedocumented in this encounter
--- OUTSIDE RECORDS SUMMARY | 2021-12-03 08:22 | XMS_ITS | Encounter Summary ---
:1950 Author Organization [place] Address [address] [place] [address] Care Team Providers Name Role Phone Unavailable Primary Care Provider Unavailable Encounter Details Date Type Department Care Team Description 03/31/2007 Results Only [facility] Erin Chávez MD [facility] Results ENT SPECIALTY C ARE OF [place] [address] [place], [place] [id number] (Wo rk) Social History Tobacco Use Types Packs/Day Years Used Date Smoking Tobacco: Never Assessed Sex Assigned at Date Recorded Not on file documented as of this encounter Plan of Treatment Not on filedocumented as of this encounter Procedures Procedure Name Priority Date/Time Associated Diagnosis Comme [facility] CT SOFT TISSUE Routine 03/31/2007 11:12 AM Res ults for this NECK W/O CONTRAST CLOUD DEVELOPER procedure are in the results section. documented in this encounter Results CT SCAN NECK TISSUE (03/31/2007 11:12 AM CLOUD DEVELOPER) Anatomical Region Laterality Modality Other Specimen (Source) Anatomical Collection Method Collection Time Re ceived Time Location / / Volume Laterality 03/31/2007 11:12 AM CLOUD DEVELOPER Impressions 03/31/2007 4:[address] NECK WITH CONTRAST - March 31 11:12:00 AM. COMPARISON: None. INDICATION: Left cervical adenitis with left neck mass. TECHNIQUE: 3.0 mm axial images of the ne ck, skull base through clavicles, after administration of 100 m L of Optiray-300 intravenous contrast, viewed in soft tissue, brain, lung, and bone windows. Coronal and sagittal reformatted images are generated. FINDINGS: There is a myositis and absces s within the left sternocleidomastoid muscle. The surround ing vessels are normal without evidence of thrombus. There is celluliti s of the overlying subcutaneous tissues. Demonstrated brain parenchyma is normal. Normal vascular enhancement is present. The left vertebral artery is dominant. Mastoid air cells are normally aerated. The visualized par anasal sinuses are normal. The oral tongue and the base of tongue a re normal. The nasopharyngeal mucosa is normal. Parapharyngeal fat is not displaced. Submandibular space is normal. Scattered subcentimeter nodes are present. These do not reach significant size criteria or d emonstrate aggressive features. The parotid glands are normal. Submandibular glands are normal. Remainder of the aerodigestive t ract is normal. The hyoid bone and the thyroid cartilage are normal. No sclerosis is demonstrated. The arytenoid cartilage ap pears normal in position. No evidence of vocal cord paralysis is demo nstrated. The true vocal cords appear normal and symmetric. Aryepiglott ic folds are normal. Piriform recesses are not effaced. The thyroid gland appears normal. The tr acheoesophageal groove is normal. Mild degenerative changes are pr esent within the cervical spine. The pulmonary parenchyma is shante l. No skin thickening is demonstrated. IMPRESSION: Myositis with 2 cm abscess w ithin the left sternocleidomastoid muscle. There is jones lulitis of the overlying subcutaneous tissues. Humberto Chávez MD SPECIAL IMAGING STUDIES documented in this encounter Visit Diagnoses Not on filedocumented in this encounter
--- OUTSIDE RECORDS SUMMARY | 2021-12-03 08:22 | XMS_ITS | Encounter Summary ---
:1950 Author Organization [place] Address [address] [place] [address]. [place] [address] Care Team Providers Name Role Phone Unavailable Primary Care Provider Unavailable Encounter Details Date Type Department Care Team Description 07/17/2005 Historic Results INTERFACED REPORT Interface, Jorge shelton MD Social History Tobacco Use Types Packs/Day Years Used Date Smoking Tobacco: Never Assessed Sex Assigned at Date Recorded Not on file documented as of this encounter Plan of Treatment Not on filedocumented as of this encounter Procedures Procedure Name Priority Date/Time Associated Diagnosis Comme nts EKG 12 LEAD Routine 07/17/2005 4:33 AM Results f or this CDT procedure are i n the results section . documented in this encounter Results EKG 12 LEAD (07/17/2005 4:33 AM CDT) Component Value Ref Range Test Analysis Performed Pathologis t Method Time At Signature Ventricular Rate 63 BPM RADIOLOGY RESULTS Atrial Rate 63 BPM RADIOLOGY RESULTS OR Interval 186 ms RADIOLOGY RESULTS QRS Duration 90 ms RADIOLOGY RESULTS QT 410 ms RADIOLOGY RESULTS QTc 419 ms RADIOLOGY RESULTS P [place] 49 degrees RADIOLOGY RESULTS R AXIS -9 degrees RADIOLOGY RESULTS T [place] 19 degrees RADIOLOGY RESULTS Interpretation AGE AND GENDER SPECIFIC ECG ANALYSIS RADIOLOGY ECG Sinus rhythm RESULTS Normal ECG Unconfirmed report - interpretation of this ECG is compute r generated - see medical record for final interpretation Specimen Anatomical Collection Method Collection Time Receive d Time (Source) Location / / Volume Laterality 07/17/2005 4:33 AM 6 7:59 CDT AM CDT Transcripton Interface ECG ORDERABLES Performing Organization Address City/State/ZIP Code Phon e Number RADIOLOGY RESULTS documented in this encounter Visit Diagnoses Not on filedocumented in this encounter
--- OUTSIDE RECORDS SUMMARY | 2021-12-03 08:22 | XMS_ITS | Encounter Summary ---
:1950 Author Organization [place] Address [address] [facility] [place] [address] Care Team Providers Name Role Phone Unavailable Primary Care Provider Unavailable Encounter Details Date Type Department Care Team Description 03/30/2007 Admission H&P Humberto Chávez MD (Burner Technician) ENT SPECIALTY [place] RE OF [place] [address] [place], [place] [phone] (Wo rk) Social History Tobacco Use Types Packs/Day Years Used Date Smoking Tobacco: Never Assessed Sex Assigned at Date Recorded Not on file documented as of this encounter Progress Notes Humberto Chávez - 05/06/2007 11:11 AM CDT FINAL CHIEF COMPLAINT: Left neck mass. HISTORY OF PRESENT ILLNESS: Travis Ratliff is a 56-year-old gentleman who has a 3- day history of gradually increasing left neck mass. This began without significant antecedent illness. There are no additional symptoms for him other than the discomfort from the mass. He has virtually no difficulties with swallowing, no alterations in vocal quality or airway and currently is without other significant complaint. He states that he perhaps had a cold within the past 2 weeks but with low-grade cough, this is largely resolved. He is admitted to the hospital at this time with rapidly expanding left neck massof possible inflammatory origin. PAST MEDICAL HISTORY: The patient's history is remarkable for hypertension and issues of sensorineural hearing loss and intermittent balance disturbance. He is otherwise generally healthy. ALLERGIES: He has no known allergies. PHYSICAL EXAMINATION: GENERAL: The patient is a moderately obese gentleman of 56 years. NECK: He has obvious deformity of the left neck with swelling measuring roughly 6 x 4 cm. This is challenging to exactly delineate as the sternocleidomastoid muscle is being tented laterally and is viewed as part of the mass. There is surprisingly no other regional adenopathy. HEENT: His ears are otoscopically well. His nose looks well. Pharynx is negative. Indirect laryngoscopy is also negative. CHEST: Clear. HEART: Within normal limits. ABDOMEN: Obese but without masses. EXTREMITIES: Within normal limits. ASSESSMENT: Inflammatory left neck mass of sudden onset with surprisingly modest symptoms. PLAN: The patient will be admitted to the hospital for intravenous antibiotics and support. If he is without improvement within the next 24 hours, CT scanning for evaluation of either neoplasm or possible abscess will be performed. Electronically signed on 05/06/2007 11:10 by HUMBERTO CHÁVEZ III, MD MT: [id number] Name: TRAVIS RATLIFF Account: [id number] : 1950 Admitted: [id number] Document: [id number] cc: Nelson Almaraz MD documented in this encounter Plan of Treatment Not on filedocumented as of this encounter Visit Diagnoses Not on filedocumented in this encounter
--- OUTSIDE RECORDS SUMMARY | 2021-12-03 08:22 | XMS_ITS | Encounter Summary ---
:1950 Author Organization [place] Address 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 (Primary [address] PLAST SURG Dx) [place] [address] [id number] [address] [place] [id number] Social History Tobacco Use Types Packs/Day Years Used Date Smoking Tobacco: Never Alcohol Use Standard Drinks/Week Comments Yes 0 (1 standard drink = 0.6 oz pure alcoho l) social Sex Assigned at Date Recorded Not on file documented as of this encounter Last Filed Vital Signs Vital Sign Reading Time Taken Comments Blood Pressure 134/92 03/25/2014 11:22 AM CANDY SEPARATOR HARD Pulse - - Temperature 36.3 ??C (97.4 ??F) 03/25/2014 9:13 AM CANDY SEPARATOR HARD Respiratory Rate 16 03/25/2014 11:22 AM CANDY SEPARATOR HARD Oxygen Saturation 94% 03/25/2014 11:22 AM CANDY SEPARATOR HARD Inhaled Oxygen Concentration - - Weight 104.3 kg (230 lb) 03/25/2014 9:13 AM CANDY SEPARATOR HARD Height 175.3 cm (5' 9) 03/25/2014 9:13 AM CANDY SEPARATOR HARD Body Mass Index 33.97 03/25/2014 9:13 AM CANDY SEPARATOR HARD documented in this encounter Discharge Instructions Discharge InstructionsMichelle Pretty RN - 03/25/2014 11:05 AM CANDY SEPARATOR HARD [facility] Discharge Instructions Anesthesia ([facility] Center) Adult Discharge Instructions For 24 hours after surgery 1. Get plenty of rest. Make arrangements to have a responsible adult stay with you for at least 6 hours after you leave the hospital. 2. Do not drive or use heavy equipment for 24 hours. 3. Do not drink alcohol for 24 hours. 4. Do not sign legal documents or make important decisions for 24 hours. 5. Avoid strenuous or risky activities. You may feel lightheaded. If so, sit for a few minutes before standing. Have someone help you get up. 6. Conscious sedation patients may resume a regular diet.. 7. Any questions of medical nature, call your physician. [facility] Eyelid/Orbital Surgery Discharge Instructions Vivek Allan M.D.. ICE COMPRESSES Immediately following surgery, you should begin to apply ice compresses. Apply a cold gel pack or wrap a clean washcloth around a cup of crushed ice in a plastic bag (a bag of frozen peas also works well) and hold the cold compresses directly against the closed eyelid (s).Apply cold pack for a minimumof six times daily for no longer than 15 minutes at a time. Continue cold compresses every day untilthe bruising and swelling begin to subside. This can vary for each patient, but three 3 days may be common. HOT COMPRESSES After your swelling and bruising have begun to subside, hot compresses should be applied. Take a clean washcloth and wring it out in hot water (as warm as you can tolerate comfortably). Hold this warm compress against the closed eyelid(s) at least six times per day for 15 minutes. This should be continued for about two weeks. OINTMENT You may be given some ointment when you leave the hospital. Apply this ointment to the suture line(s) twice a day, 1/4 inch into the eye at bedtime for 7 days. Expect some blurring of vision from the ointment. ACTIVITY Avoid heavy lifting or vigorous exercise for one week after surgery. You may resume regular activities as tolerated. You may shower and wash your hair on the day after surgery; be careful to avoid getting shampoo in your eyes. While your eyes are still swelling, it is recommended you sleep on your back and elevate your head with 2-3 pillows. MEDICATION If the doctor has given you some medications to take after surgery, please take these according to the instructions on the bottle. Pain medications may make you drowsy so do not drive, operate heavy machinery, or use alcohol while taking it. When you feel that you do not need the prescription pain medication, you may substitute Extra Strength Tylenol for mild pain by also following the directions on the bottle. If you were taking Coumadin (warfarin) prior to your surgery, you may resume this medication with your next scheduled dose. WHAT TO EXPECT You should expect some slight oozing of blood from the incision site over the first two to three days after surgery. Swelling and bruising will occur for one to two weeks or longer. You may also experience itching and tearing during the first several weeks after surgery. This is part of the normal healing process QUESTIONS Please feel free to contact the office, should you have any questions that are not answered above. The phone number is . Please call immediately if you are unable to establish vision in the operative eye, you are experiencing heavy bleeding that will not stop with gentle pressure or you have any signs of an infection (greenish/yellow discharge or progressive redness). [facility] [place] [address] [place], [place] [address] Y SEPARATOR HARD documented in this encounter Medications at Time of Discharge Medication Sig Dispensed Refills Start Date End Date Aspirin 75 MG Take 81 mg by mouth 30 tablet 1 03/25/2014 CHEWIndications: Family daily history of ischemic heart disease loratadine (CLARITIN) 10 MG Take 10 mg by mouth 0 tablet daily LOSARTAN POTASSIUM PO 0 Rosuvastatin Calcium Take 5 mg by mouth 0 (CRESTOR PO) documented as of this encounter Miscellaneous Notes Op Note - Vivek Allan MD - 03/25/2014 11:05 AM CST PREOPERATIVE DIAGNOSIS: Right lower eyelid lesion. POSTOPERATIVE DIAGNOSIS: Right lower eyelid lesion. PROCEDURE: Full-thickness excision, right lower eyelid lesion. SURGEON: Vivek Allan MD ANESTHESIA: Local with monitoring. COMPLICATIONS: None. INDICATIONS FOR SURGERY: Travis Ratliff has a history of a lesion involving the right lower eyelid, which was previously biopsied and demonstrated basal cell carcinoma. The patient presents for more definitive excision. The procedure went as follows: DESCRIPTION OF PROCEDURE: The area was injected with 2% lidocaine with 1:100,000 epinephrine as was the lateral canthus. The patient was then prepped and draped in the usual sterile fashion. A full-thickness incision was made medial and lateral to the clinically involved area. The tissue was submittedfor permanent sections. An additional 1.5 mm margin was taken from the medial and lateral aspect of the defect. These were submitted for frozen section control. A lateral canthotomy was performed. The inferior limb of the lateral canthal tendon was incised in order to allow closure of the defect without undue tension. The defect measured approximately 30% of the lower eyelid. The tarsal plate was now reapproximated with interrupted 5-0 Vicryl sutures. The eyelid margins were closed with 6-0 chromic at the calixto line, lash line, and pretarsal skin. The patient tolerated the procedure well. VIVEK ALLAN MD MT: #[id number] Name: TRAVIS RATLIFF MRN: [id number] Account: [id number] : 1950 Procedure Date: 03/25/2014 Document: [id number] Y SEPARATOR HARD Brief Op Note - Vivek Allan MD - 03/25/2014 11:02 AM CST [facility] Brief Operative Note Pre-operative diagnosis: right lower lid lesion Post-operative diagnosis * No post-op diagnosis entered * Procedure: Procedure(s) with comments: WEDGE RESECTION EYELID - RIGHT LOWER LID WEDGE EXCISION WITH FROZEN SECTIONS Surgeon(s): Surgeon(s) and Role: * Vivek Allan MD - Primary Estimated blood loss: * No values recorded between 03/25/2014 10:27 AM and 03/25/2014 10:49 AM * Specimens: ID Type Source Tests Collected by Time Destination A : Right lower lid wedge Tissue Eye, Right SURGICAL PATHOLOGY EXAM Vivek Allan MD 03/25/2014 10:29 AM Pathology B : Right lower lid lateral margin Tissue Eye, Right Vivek Allan MD 03/25/2014 10:29 AM Pathology C : Right lower lid medial margin Tissue Eye, Right Vivek Allan MD 03/25/2014 10:31 AM Pathology Findings: Y SEPARATOR HARD documented in this encounter Plan of Treatment Not on filedocumented as of this encounter Procedures Procedure Name Priority Date/Time Associated Diagnosis Comme nts SURGICAL PATHOLOGY Routine 03/25/2014 10:29 AM Re sults for this EXAM CANDY SEPARATOR HARD procedure are i n the results section. WEDGE RESECTION, 03/25/2014 10:13 AM right lower lid EYELID CANDY SEPARATOR HARD lesion LAB RESULT - [facility] 03/08/2014 12:00 AM SCAN CANDY SEPARATOR HARD EKG CARDIAC - [facility] 03/08/2014 12:00 AM SCAN CANDY SEPARATOR HARD documented in this encounter Results Surgical pathology exam (03/25/2014 10:29 AM CANDY SEPARATOR HARD) Component Value Ref Test Analysis Performed At [facility] [employer] Method Time Signature Copath Report Patient Name: TRAVIS RATLIFF MR#: [id number] Specimen #: [id number] Collected: 03/25/2014 Received: 03/25/2014 Reported: 03/28/2014 14:54 Ordering Phy(s): VIVEK ALLAN SPECIMEN(S): A: Lesion, right lower lid wedge B: Lesion, right lowe lid, lateral margin C: Lesion, right lowe4r lid, medial margin FINAL DIAGNOSIS: A: Right lower eyelid, lesion, wedge resection- - Benign skin with chronic inflammation, scarring and foreig n body reaction.. ??Negative for malignancy. B: Right lower eyelid, lateral margin of lesion, excision- - Actinic change, Negative for malignancy C: Right lower lid, medial margin of lesion, excision- - Negative for malignancy Electronically signed out by: Mariela Kilpatrick MD CLINICAL HISTORY: Right lower lid lesion GROSS: A.The specimen is received in formalin with proper patient identification labeled right lower lobe lid wedge. ??The s pecimen consists of pink rubbery eyelid wedge resection (0.5 x 0.5 x 0.4 cm). The specimen is inked black and bisected. ??The specimen is entirely submitted in one cassette. BThe specimen is received fresh with the patient's name and proper identification labeled right lower lid-lateral margin. ??T he specimen consists of pink rubbery eyelid wedge resection (0.6 x 0.5 x 0.2 cm). The specimen is entirely submitted on one rose for frozen s ection. ??The specimen is entirely submitted in one cassette. ??Science And Operations Officer direct, per Dr. Kilpatrick. C.The specimen is received fresh with the patient's name and proper identification labeled right lower lid-medial margin. ??Th e specimen consists of pink rubbery eyelid wedge resection (0.7 x 0.5 x 0.2 cm. The specimen is entirely submitted on one rose for frozen s ection. ??The specimen is entirely submitted in one cassette. ??Science And Operations Officer direct, per Dr. Kilpatrick. (Dictated by: Wilder Manning 03/25/2014 12:31 P M) INTRAOPERATIVE CONSULTATION: Frozen section diagnosis: B. And C.-Negative margins(Dr Nicolasa roach) MICROSCOPIC: A formal microscopic exam is performed. Deeper levels were performed on specimen A. Result discussed with Dr. Allan on 03/28/2014 CPT Codes: A: 03279-WD3 B: 31195-CE3, 42865-MK C: 87629-YO1, 75723-QQ TESTING LAB LOCATION: [address] ??[id number] COLLECTION SITE: Client: [facility] Location: [facility] (S) Specimen Anatomical Collection Method Collection Time Receive d Time (Source) Location / / Volume Laterality 03/25/2014 10:29 03/25/2014 AM CANDY SEPARATOR HARD 10:33 AM CANDY SEPARATOR HARD [facility]ivek Allan [facility] Performing Organization Address City/State/ZIP Code Phon e Number COPATH LAB RESULT - HIM SCAN (03/08/2014 12:00 AM CANDY SEPARATOR HARD) Specimen (Source) Anatomical Location Collection Method / Collectio n Time Received Time / Laterality Volume 03/08/2014 Narrative This result has an attachment that is no t available. Provider Outside NON-BEAKER LAB TESTING EKG CARDIAC - HIM SCAN (03/08/2014 12:00 AM CANDY SEPARATOR HARD) Specimen (Source) Anatomical Location Collection Method / Collectio n Time Received Time / Laterality Volume 03/08/2014 Narrative This result has an attachment that is no t available. Provider Outside ECG ORDERABLES documented in this encounter Visit Diagnoses Diagnosis Family history of ischemic heart disease - Primary documented in this encounter Administered Medications Inactive Administered Medications - up to 3 most recent administrations Medication Order MAR Action Action Date Dose Rate Site lactated ringers infusion New Bag 03/25/2014 9:21 AM CANDY SEPARATOR HARD 1,000 mLs 75 mL/hr at 75-100 mL/hr, Intravenous, CONTINUOUS, UNLESS otherwise indicated., Pre-procedure, Starting on Fri03/25/14 at 0900, Until Fri03/25/14 at 1336 lidocaine BUFFERED 1 % solution 0.1-1 mL Given 03/25/2014 9:21 AM CANDY SEPARATOR HARD 0.5 mLs 0.1-1 mL, Intradermal, ONCE PRN, mild pain with VAD insertion or accessing implanted port., Starting on Fri03/25/14 at 0859, For 1 dose, Do NOT give if patient has a history of allergy to any local anesthetic or any marcia product., Pre-procedure documented in this encounter Active and Recently Administered Medications Times are shown in CANDY SEPARATOR HARD. Continuous Medication Order 03/23/2014 03/24/2014 03/25/2014 lactated ringers infusion (CANCELED) 0921 (New Bag - Provider: Elina So RN)1018 (Anesthesia Volume Adjustment - Provider: Nayely Bryson)1047 (Stopped - Provider: Nayely Bryson) at 75-100 mL/hr, Intravenous, CONTINUOUS , UNLESS otherwise indicated., Pre- procedure, Starting Fri03/25/14 at 0900, Until Fri03/25/14 at 1336 PRN Medication Order 03/23/2014 03/24/2014 03/25/2014 erythromycin (ROMYCIN) ophthalmic ointment (CANCELED) 1036 (Given - Provider: Vivek Allan MD) PRN, Starting Fri03/25/14 at 1036, Intra-procedure lidocaine 2%-EPINEPHrine 1:200,000 injection (CANCELED) 1036 (Given - Provider: Vivek Allan MD) PRN, Starting Fri03/25/14 at 1036, Intra-procedure lidocaine BUFFERED 1 % solution 0.1-1 mL (COMPLETED) 0921 (Given - Provider: Elina So RN) 0.1-1 mL, Intradermal, ONCE PRN, mild pa in with VAD insertion or accessing implanted port., Starting Fri03/25/14 at 0859, For 1 dose, Do NOT give if patient has a history of allergy to any local anesthetic or any marcia product., Pre-procedure tetracaine (PONTOCAINE) 0.5 % ophthalmic solution (CANCELED) 1036 (Given - Provider: Vivek Allan MD) PRN, Starting Fri03/25/14 at 1036, Intra-procedure documented in this encounter Care Teams Designer Architect Relationship Specialty Start Date End Date Nelson Almaraz MD PCP - General Family Practice 03/15/14 03/12/[address] [id number] documented as of this encounter
--- OUTSIDE RECORDS SUMMARY | 2021-12-03 08:22 | XMS_ITS | Encounter Summary ---
:1950 Author Organization [place] Address [address] [place] [address] Care Team Providers Name Role Phone Unavailable Primary Care Provider Unavailable Encounter Details Date Type Department Care Team Description 04/02/2007 Historic Results INTERFACED REPORT Humberto Chávez MD [facility] [place] [address] [place], [place] [address] (Wo rk) Social History Tobacco Use Types Packs/Day Years Used Date Smoking Tobacco: Never Assessed Sex Assigned at Date Recorded Not on file documented as of this encounter Plan of Treatment Not on filedocumented as of this encounter Procedures Procedure Name Priority Date/Time Associated Comments Diagnosis GRAM STAIN Routine 04/02/2007 3:45 PM Results f or this CENTRIFUGAL STATION OPERATOR procedure are i n the results section. FUNGUS CULTURE Routine 04/02/2007 3:45 PM Results for this CENTRIFUGAL STATION OPERATOR procedure are i n the results section. ANAEROBIC BACTERIAL Routine 04/02/2007 3:45 PM Re sults for this CULTURE ROUTINE CENTRIFUGAL STATION OPERATOR procedure ar e in the results section. AFB STAIN NON BLOOD Routine 04/02/2007 3:45 PM Re sults for this CENTRIFUGAL STATION OPERATOR procedure are i n the results section. AFB CULTURE AND STAIN Routine 04/02/2007 3:45 PM Results for this NON BLOOD CENTRIFUGAL STATION OPERATOR procedure are i n the results section. ABSCESS CULTURE Routine 04/02/2007 3:45 PM Result s for this AEROBIC BACTERIAL CENTRIFUGAL STATION OPERATOR procedure are in the results section. HEMOGRAM DIFFERENTIAL Routine 04/02/2007 11:20 Re sults for this AND PLATELET AM CENTRIFUGAL STATION OPERATOR procedure are i n the results section. BASIC METABOLIC PANEL Routine 04/02/2007 11:20 Re sults for this AM CENTRIFUGAL STATION OPERATOR procedure are i n the results section. documented in this encounter Results Abscess Culture (04/02/2007 3:45 PM CENTRIFUGAL STATION OPERATOR) Component Value Ref Test Analysis Performed At [facility] Method Time Signature Specimen Aspirate LFT NECK MISYS Description MASS Culture Micro Light growth Beta MISYS hemolytic Streptococcus group A Susceptibility testing not Comment: routinely done Critical Value called to and read back abeba Holloway at [facility] [phone] 04/07/07@11:12 by ru Micro Report Status FINAL 04/08/2007 MIS YS Specimen Anatomical Collection Method Collection Time Receive d Time (Source) Location / / Volume Laterality 04/02/2007 3:45 PM 8 4:11 CENTRIFUGAL STATION OPERATOR PM CENTRIFUGAL STATION OPERATOR Humberto Chávez MD LAB - MICRO GENERAL ORDERABL ES Performing Organization Address City/[facility] Phon e Number MISYS AFB culture (04/02/2007 3:45 PM CENTRIFUGAL STATION OPERATOR) [facility] Method Time Signature Specimen Aspirate LFT MISYS Description NECK MASS Culture Micro No Acid fast MISYS bacilli isolated after 7 weeks incubation Comment: Assayed at [facility] [address] Micro Report Status FINAL 06/01/2007 MIS YS Specimen Anatomical Collection Method Collection Time Receive d Time (Source) Location / / Volume Laterality 04/02/2007 3:45 PM 8 4:11 CENTRIFUGAL STATION OPERATOR PM CENTRIFUGAL STATION OPERATOR Humberto Chávez MD LAB - MICRO GENERAL ORDERABL ES Performing Organization Address City/[facility]/ZIP Code Phon e Number MISYS Anaerobic bacterial culture (04/02/2007 3:45 PM CENTRIFUGAL STATION OPERATOR) [facility] Method Time Signature Specimen Aspirate LFT MISYS Description NECK MASS Culture Micro No anaerobes MISYS isolated Micro Report FINAL MISYS Status 04/09/2007 Specimen Anatomical Collection Method Collection Time Receive d Time (Source) Location / / Volume Laterality 04/02/2007 3:45 PM 8 4:11 CENTRIFUGAL STATION OPERATOR PM CENTRIFUGAL STATION OPERATOR Humberto Chávez MD LAB - MICRO GENERAL ORDERABL ES Performing Organization Address City/[facility]/ZIP Code Phon e Number MISYS Fungus Culture, non-blood (04/02/2007 3:45 PM CENTRIFUGAL STATION OPERATOR) [facility] Method Time Signature Specimen Aspirate LFT MISYS Description NECK MASS Culture Micro Culture MISYS negative after 4 weeks Micro Report FINAL MISYS Status [id number] Specimen Anatomical Collection Method Collection Time Receive d Time (Source) Location / / Volume Laterality 04/02/2007 3:45 PM 8 4:11 CENTRIFUGAL STATION OPERATOR PM CENTRIFUGAL STATION OPERATOR Humberto Chávez MD LAB - MICRO GENERAL ORDERABL ES Performing Organization Address [facility] Code Phon e Number MISYS Gram stain (04/02/2007 3:45 PM CENTRIFUGAL STATION OPERATOR) [facility] Method Time Signature Specimen Aspirate LFT MISYS Description NECK MASS Gram Stain Few Gram MISYS positive cocci in chains Comment: Many PMNs seen CALLLED TO MS2 T O GISELLE GARCIA AT 1650T ON 04.02.07. Micro Report Status FINAL 04/08/2007 MIS YS Specimen Anatomical Collection Method Collection Time Receive d Time (Source) Location / / Volume Laterality 04/02/2007 3:45 PM 8 4:11 CENTRIFUGAL STATION OPERATOR PM CENTRIFUGAL STATION OPERATOR Humberto Chávez MD LAB - MICRO GENERAL ORDERABL ES Performing Organization Address [facility] Phon e Number MISYS AFB stain (04/02/2007 3:45 PM CENTRIFUGAL STATION OPERATOR) [facility] Method Time Signature Specimen Aspirate LFT MISYS Description NECK MASS Micro Report FINAL MISYS Status 04/06/2007 AFB Stain Negative for MISYS acid fast bacteria Comment: Less than 5ml of specimen received. A minimum of 5 ml of sputum or fluid is recommended for recovery of acid fast bacilli (AFB). Specimen Anatomical Collection Method Collection Time Receive d Time (Source) Location / / Volume Laterality 04/02/2007 3:45 PM 8 6:41 CENTRIFUGAL STATION OPERATOR PM CENTRIFUGAL STATION OPERATOR Humberto Chávez MD LAB - MICRO GENERAL ORDERABL ES Performing Organization Address City/[facility]/ZIP Code Phon e Number MISYS (ABNORMAL) Hemogram differential and platelet (04/02/2007 11:20 AM CENTRIFUGAL STATION OPERATOR) [facility] Method Time Signature MCV 91 78 - 100 MISYS fl MCH 31.1 26.5 - MISYS 33.0 pg MCHC 34.1 31.5 - MISYS 36.5 g/dL RDW 13.2 10.0 - MISYS 15.0 % WBC 18.4 (H) 4.0 - MISYS 11.0 10e9/L RBC Count 4.40 4.4 - 5.9 MISYS 10e12/L Hemoglobin 13.7 13.3 - MISYS 17.7 g/dL Hematocrit 40.2 40.0 - MISYS 53.0 % % Neutrophils 72 40 - 75 % MISYS % Lymphocytes 18 (L) 20 - 48 % MISYS % Monocytes 9 0 - 12 % MISYS % Eosinophils 1 0 - 6 % MISYS % Basophils 0 0 - 2 % MISYS Platelet Count 328 150 - 450 MISYS 10e9/L Absolute 13.2 (H) 1.6 - 8.3 MISYS Neutrophil 10e9/L Absolute 3.4 0.8 - 5.3 MISYS Lymphocytes 10e9/L Absolute 1.7 (H) 0.0 - 1.3 MISYS Monocytes 10e9/L Absolute 0.1 0.0 - 0.7 MISYS Eosinophils 10e9/L Absolute 0.0 0.0 - 0.2 MISYS Basophils 10e9/L Diff Method Automated MISYS Method Specimen Anatomical Collection Method Collection Time Receive d Time (Source) Location / / Volume Laterality 04/02/2007 11:20 04/02/2007 9:07 AM CENTRIFUGAL STATION OPERATOR AM CENTRIFUGAL STATION OPERATOR Nikos Sanchez MD LAB - BLOOD ORDERABLES Performing Organization Address City/State/ZIP Code Phon e Number MISYS (ABNORMAL) Basic metabolic panel (04/02/2007 11:20 AM CENTRIFUGAL STATION OPERATOR) P athologist Signature Sodium 144 133 - 144 MISYS mmol/L Potassium 3.8 3.4 - 5.3 MISYS mmol/L Chloride 104 94 - 109 MISYS mmol/L Carbon Dioxide 29 20 - 32 MISYS mmol/L Glucose 110 (H) 60 - 99 MISYS mg/dL Urea Nitrogen 24 7 - 30 MISYS mg/dL Creatinine 1.36 0.80 - MISYS 1.50 mg/dL GFR Estimate 58 (L) >60 MISYS mL/min/1.7 m2 GFR Estimate If 70 >60 MISYS Black mL/min/1.7 m2 Calcium 9.0 8.5 - 10.4 MISYS mg/dL Anion Gap 11 6 - 17 MISYS mmol/L Specimen Anatomical Collection Method Collection Time Receive d Time (Source) Location / / Volume Laterality 04/02/2007 11:20 04/02/2007 9:08 AM CENTRIFUGAL STATION OPERATOR AM CENTRIFUGAL STATION OPERATOR Nikos Sanchez MD LAB - BLOOD ORDERABLES Performing Organization Address City/State/ZIP Code Phon e Number MISYS documented in this encounter Visit Diagnoses Not on filedocumented in this encounter
--- OUTSIDE RECORDS SUMMARY | 2021-12-03 08:22 | XMS_ITS | Encounter Summary ---
:1950 Author Organization [place] Address [address] [place] [address] Care Team Providers Name Role Phone Nelson Almaraz MD Primary Care Provider Encounter Details Date Type Department Care Team Description 03/25/2014 Surgery [facility] Vivek Allan R IGHT LOWER LID WEDGE [place] PeriOP MD EXCISION WITH FROZEN Services SC OPHTHALMIC PLAST SECTIONS [address] [place] [address] [address] [place] [address] (Wo rk) Surgery Details Date/Time Status Location OR Service Patient Case Case Traum a Class Class Type Case? 03/25/14 10:00 Posted [place] [id number] [facility] AM Panel 1 Procedure LRB Anes Op Region Wound Class Commen ts RIGHT LOWER LID WEDGE Right MAC Eye I-Clean RIG HT LOWER LID WEDGE EXCISION WITH FROZEN EXCI BINH WITH FROZEN SECTIONS SECTIONS Surgeon Surgeon Role Service Panel Vivek Allan MD Primary Ophthalmology 1 documented in this encounter Social History Tobacco Use Types Packs/Day Years Used Date Smoking Tobacco: Never Alcohol Use Standard Drinks/Week Comments Yes 0 (1 standard drink = 0.6 oz pure alcoho l) social Sex Assigned at Date Recorded Not on file documented as of this encounter Last Filed Vital Signs Vital Sign Reading Time Taken Comments Blood Pressure 134/92 03/25/2014 11:22 AM STERILISATION TECHNICIAN Pulse - - Temperature 36.3 ??C (97.4 ??F) 03/25/2014 9:13 AM STERILISATION TECHNICIAN Respiratory Rate 16 03/25/2014 11:22 AM STERILISATION TECHNICIAN Oxygen Saturation 94% 03/25/2014 11:22 AM STERILISATION TECHNICIAN Inhaled Oxygen Concentration - - Weight 104.3 kg (230 lb) 03/25/2014 9:13 AM STERILISATION TECHNICIAN Height 175.3 cm (5' 9) 03/25/2014 9:13 AM STERILISATION TECHNICIAN Body Mass Index 33.97 03/25/2014 9:13 AM STERILISATION TECHNICIAN documented in this encounter Discharge Instructions Discharge InstructionsMichelle Pretty RN - 03/25/2014 11:05 AM STERILISATION TECHNICIAN [facility] Discharge Instructions Anesthesia [...] questions of medical nature, call your physician. [facility] Eyelid/Orbital Surgery Discharge Instructions Vivek Allan M.D.. [...] an infection (greenish/yellow discharge or progressive redness). [facility] [place] [address] [place], [place] [address] ILISATION TECHNICIAN documented in this encounter Medications at Time [...] the procedure well. VIVEK ALLAN MD [place]: [id number] Name: TRAVIS RATLIFF Account: [id number] : 1950 Procedure Date: 03/25/2014 Document: [id number] ILISATION TECHNICIAN Brief Op Note - Vivek Allan MD - 03/25/2014 11:02 AM CST [facility] Brief Operative Note Pre-operative diagnosis: right lower [...] Allan MD 03/25/2014 10:31 AM Pathology Findings: ILISATION TECHNICIAN documented in this encounter Plan of Treatment Not on filedocumented as of this encounter Procedures Procedure Name Priority Date/Time Associated Diagnosis Comme nts SURGICAL PATHOLOGY Routine 03/25/2014 10:29 AM Re sults for this EXAM STERILISATION TECHNICIAN procedure are i n the results section. WEDGE RESECTION, 03/25/2014 10:13 AM right lower lid EYELID STERILISATION TECHNICIAN lesion LAB RESULT - [facility] 03/08/2014 12:00 AM SCAN STERILISATION TECHNICIAN EKG CARDIAC - [facility] 03/08/2014 12:00 AM SCAN STERILISATION TECHNICIAN documented in this encounter Results Surgical pathology exam (03/25/2014 10:29 AM STERILISATION TECHNICIAN) Component Value Ref Test Analysis Performed At [facility] Range Method Time Signature Copath Report Patient Name: TRAVIS RATLIFF MR#: [id number] Specimen #: [id number] Collected: 03/25/2014 Received: 03/25/2014 Reported: 03/28/2014 14:54 [...] specimen is entirely submitted in one cassette. ??Emergency Medical Tech direct, per Dr. Kilpatrick. C.The specimen is received fresh with the patient's name and proper identification labeled right lower lid-medial margin. ??Th e specimen consists of pink rubbery eyelid wedge resection (0.7 x 0.5 x 0.2 cm. The specimen is entirely submitted on one rose for frozen s ection. ??The specimen is entirely submitted in one cassette. ??Emergency Medical Tech direct, per Dr. Kilpatrick. (Dictated by: Wilder Manning 03/25/2014 12:31 P M) INTRAOPERATIVE CONSULTATION: Frozen section diagnosis: B. And C.-Negative margins(Dr Nicolasa roach) MICROSCOPIC: A formal microscopic exam is performed. Deeper levels were performed on specimen A. Result discussed with Dr. Allan on 03/28/2014 CPT Codes: A: 21352-IR2 B: 07126-FJ4, 26317-GB C: 06292-QG3, 99419-LM TESTING LAB LOCATION: [address] ??[id number] COLLECTION SITE: Client: [facility] Location: [facility] (S) Specimen Anatomical Collection Method Collection Time Receive d Time (Source) Location / / Volume Laterality 03/25/2014 10:29 03/25/2014 AM STERILISATION TECHNICIAN 10:33 AM STERILISATION TECHNICIAN Vivek Allan MD LAB - [facility] Performing Organization Address City/State/ZIP Code Phon e Number [facility] LAB RESULT - [facility] (03/08/2014 12:00 AM STERILISATION TECHNICIAN) Specimen (Source) Anatomical Location Collection Method / Collectio n Time Received Time / Laterality Volume 03/08/2014 Narrative This result has an attachment that is no t available. Provider Outside NON-[facility] LAB TESTING EKG CARDIAC - [facility] (03/08/2014 12:00 AM STERILISATION TECHNICIAN) Specimen (Source) Anatomical Location Collection Method / Collectio n Time Received Time / Laterality Volume 03/08/2014 Narrative This result has an attachment that is no t available. Provider Outside ECG ORDERABLES documented in this encounter Visit Diagnoses Not on filedocumented in this encounter Administered Medications Inactive Administered Medications - up to 3 most recent administrations Medication Order MAR Action Action Date Dose Rate Site erythromycin (ROMYCIN) Given 03/25/2014 10:36 AM STERILISATION TECHNICIAN 1 g Both Eyes ophthalmic ointment PRN, Starting on Fri03/25/14 at 1036, Intra-procedure lactated ringers infusion New Bag 03/25/2014 9:21 AM STERILISATION TECHNICIAN 1,000 mLs 75 mL/hr at 75-100 mL/hr, Intravenous, CONTINUOUS, UNLESS otherwise indicated., Pre-procedure, Starting on Fri03/25/14 at 0900, Until Fri03/25/14 at 1336 lidocaine 2%-EPINEPHrine Given 03/25/2014 10:36 AM 4 mLs Operative Site/Surgical 1:200,000 injection STERILISATION TECHNICIAN Site PRN, Starting on Fri03/25/14 at 1036, Intra-procedure lidocaine BUFFERED 1 % solution 0.1-1 mL Given 03/25/2014 9:21 AM STERILISATION TECHNICIAN 0.5 mLs 0.1-1 mL, Intradermal, ONCE PRN, mild pain with VAD insertion or accessing implanted port., Starting on Fri03/25/14 at 0859, For 1 dose, Do NOT give if patient has a history of allergy to any local anesthetic or any marcia product., Pre-procedure tetracaine (PONTOCAINE) 0.5 % Given 03/25/2014 10:36 AM STERILISATION TECHNICIAN 2 dr ops Eye Right ophthalmic solution PRN, Starting on Fri03/25/14 at 1036, Intra-procedure documented in this encounter Active and Recently Administered Medications Times are shown in STERILISATION TECHNICIAN. Continuous Medication Order 03/23/2014 03/24/2014 03/25/2014 lactated [...] Intra-procedure documented in this encounter Care Teams Floor Scraper Relationship Specialty Start Date End Date Nelson Almaraz MD PCP - General Family Practice 03/15/14 03/12/16 [facility] [address] [place] [id number] documented as of this encounter
--- OUTSIDE RECORDS SUMMARY | 2021-12-03 08:22 | XMS_ITS | Encounter Summary ---
:1950 Author Organization [place] Address [address] [place] [address] Care Team Providers Name Role Phone Unavailable Primary Care Provider Unavailable Encounter Details Date Type Department Care Team Description 07/17/[address] [facility] Kostas Moreno MD Hospital Results [address] [place] [address] Social History Tobacco Use Types Packs/Day Years Used Date Smoking Tobacco: Never Assessed Sex Assigned at Date Recorded Not on file documented as of this encounter Plan of Treatment Not on filedocumented as of this encounter Procedures Procedure Name Priority Date/Time Associated Diagnosis Comme nts HC CT HEAD WO Routine 07/17/2005 5:46 AM Results for this CONTRAST CDT procedure are i n the results section. HC CHEST TWO VIEWS, Routine 07/17/2005 5:42 AM Re sults for this FRONT/LAT CDT procedure are i n the results section. documented in this encounter Results CT SCAN HEAD/BRAIN (07/17/2005 5:46 AM CDT) Anatomical Region Laterality Modality Other Specimen (Source) Anatomical Collection Method Collection Time Re ceived Time Location / / Volume Laterality 07/17/2005 5:46 AM CDT Impressions 07/17/2005 11:[address] HEAD WITHOUT CONTRAST ?07/17/2005 ?? CLINICAL HISTORY: ??Vertigo and weakness . ?? TECHNIQUE: ??Noncontrast. FINDINGS: ??No acute hemorrhage or mass effect. ??Brain parenchyma and ventricles are within normal limits. ??V isualized sinuses are clear. ?? IMPRESSION: ?? Negative exam. ??This agrees with the pr eliminary report by Dr. Aj Hickey. ?? Kostas Moreno MD SPECIAL IMAGING STUDIES CHEST X-RAY 2 VW (07/17/2005 5:42 AM CDT) Anatomical Region Laterality Modality Other Specimen (Source) Anatomical Collection Method Collection Time Re ceived Time Location / / Volume Laterality 07/17/2005 5:42 AM CDT Impressions 07/17/2005 11:51 AM CDT TWO VIEW CHEST ?? CLINICAL HISTORY: ??Weakness and difficu lty breathing. ? FINDINGS: ??Mild infiltrate or atelectas is at the right lung base. ?? Otherwise negative. Kostas Moreno MD GENERAL IMAGING documented in this encounter Visit Diagnoses Not on filedocumented in this encounter
--- OUTSIDE RECORDS SUMMARY | 2021-12-03 08:22 | XMS_ITS | Encounter Summary ---
:1950 Author Organization [place] Address [facility] [place] [address] Care Team Providers Name Role Phone Unavailable Primary Care Provider Unavailable Encounter Details Date Type Department Care Team Description 07/17/2005 Historic Results INTERFACED REPORT Kostas Moreno MD [address] [place] [address] Social History Tobacco Use Types Packs/Day Years Used Date Smoking Tobacco: Never Assessed Sex Assigned at Date Recorded Not on file documented as of this encounter Plan of Treatment Not on filedocumented as of this encounter Procedures Procedure Name Priority Date/Time Associated Comments Diagnosis HEMOGRAM DIFFERENTIAL STAT 07/17/2005 5:30 AM Results for this AND PLATELET CDT procedure are i n the results section. ERYTHROCYTE STAT 07/17/2005 5:30 AM Results f or this SEDIMENTATION RATE CDT procedure are in AUTO the results section. BASIC METABOLIC PANEL STAT 07/17/2005 5:30 AM Results for this CDT procedure are i n the results section. documented in this encounter Results (ABNORMAL) Hemogram differential and platelet (07/17/2005 5:30 AM CDT) [facility] Method Time Signature MCV 90 78 - 100 MISYS fl MCH 31.3 26.5 - MISYS 33.0 pg MCHC 35.0 32.0 - MISYS 36.0 g/dL RDW 11.9 10.0 - MISYS 15.0 % WBC 10.9 4.0 - MISYS 11.0 10e9/L RBC Count 4.39 (L) 4.4 - 5.9 MISYS 10e12/L Hemoglobin 13.8 13.3 - MISYS 17.7 g/dL Hematocrit 39.3 (L) 40.0 - MISYS 53.0 % % Neutrophils 76 (H) 40 - 75 % MISYS % Lymphocytes 13 (L) 20 - 48 % MISYS % Monocytes 8 0 - 12 % MISYS % Eosinophils 3 0 - 6 % MISYS % Basophils 0 0 - 2 % MISYS Platelet Count 171 150 - 450 MISYS 10e9/L Absolute 8.2 1.6 - 8.3 MISYS Neutrophil 10e9/L Absolute 1.5 0.8 - 5.3 MISYS Lymphocytes 10e9/L Absolute 0.9 0.0 - 1.3 MISYS Monocytes 10e9/L Absolute 0.3 0.0 - 0.7 MISYS Eosinophils 10e9/L Absolute 0.0 0.0 - 0.2 MISYS Basophils 10e9/L Diff Method Automated MISYS Method Specimen Anatomical Collection Method Collection Time Receive d Time (Source) Location / / Volume Laterality 07/17/2005 5:30 AM 6 4:57 CDT AM CDT Kostas Moreno MD LAB - BLOOD ORDERABLES Performing Organization Address City/[facility] Phon e Number MISYS Erythrocyte sedimentation rate auto (07/17/2005 5:30 AM CDT) athologist Signature Sed Rate 6 0 - 20 mm/h MISYS Specimen Anatomical Collection Method Collection Time Receive d Time (Source) Location / / Volume Laterality 07/17/2005 5:30 AM 6 4:57 CDT AM CDT Kostas Moreno MD LAB - BLOOD ORDERABLES Performing Organization Address [facility] Phon e Number MISYS (ABNORMAL) Basic metabolic panel (07/17/2005 5:30 AM CDT) P athologist Signature Sodium 142 133 - 144 MISYS mmol/L Potassium 3.8 3.4 - 5.3 MISYS mmol/L Chloride 107 94 - 109 MISYS mmol/L Carbon Dioxide 26 20 - 32 MISYS mmol/L Glucose 126 (H) 60 - 110 MISYS mg/dL Urea Nitrogen 20 7 - 30 MISYS mg/dL Creatinine 1.30 0.80 - MISYS 1.50 mg/dL GFR Estimate 62 >60 MISYS mL/min/1.7 m2 GFR Estimate If 75 >60 MISYS Black mL/min/1.7 m2 Calcium 8.2 (L) 8.5 - 10.4 MISYS mg/dL Anion Gap 8 6 - 17 MISYS mmol/L Specimen Anatomical Collection Method Collection Time Receive d Time (Source) Location / / Volume Laterality 07/17/2005 5:30 AM 6 4:57 CDT AM CDT Kostas Moreno MD LAB - BLOOD ORDERABLES Performing Organization Address City/State/ZIP Code Phon e Number MISYS documented in this encounter Visit Diagnoses Not on filedocumented in this encounter
--- OUTSIDE RECORDS SUMMARY | 2021-12-03 08:22 | XMS_ITS | Encounter Summary ---
:1950 Author Organization [place] Address [address] [facility] [place] [address] Care Team Providers Name Role Phone Unavailable Primary Care Provider Unavailable Encounter Details Date Type Department Care Team Description 04/02/2007 Admission H&P Keli Sanchez MD (Production Operations Inspector) [facility] [place] [address] [place], [place] [id number] (Wo rk) Social History Tobacco Use Types Packs/Day Years Used Date Smoking Tobacco: Never Assessed Sex Assigned at Date Recorded Not on file documented as of this encounter Progress Notes Keli Sanchez - 04/10/2007 2:57 PM CATTLE BRANDER FINAL ADMISSION DIAGNOSIS: Left neck swelling. FINAL DIAGNOSES: Left neck abscess. PROCEDURES: Ultrasound-guided needle aspiration of left neck abscess. HISTORY OF PRESENT ILLNESS: Travis Ratliff is a 56-year-old gentleman who was with left neck swelling of fast onset. He was seen and admitted to the hospital for IV antibiotics with a suspected neck abscess and CT scan was performed and confirmed abscess. PAST MEDICAL HISTORY: Hypertension and hearing loss with mild balance disturbance. ALLERGIES: None. HOSPITAL COURSE: CT scan showed a neck abscess, and he was given IV antibiotics. The neck swelling reduced in size, and he was afebrile throughout his hospital stay and tolerating a normal diet. He was receiving IV Unasyn as well as 3 doses of Decadron. The neck mass reduced in size but was still slig htly tender and still full, and so a needle aspiration of the abscess was performed under ultrasoundguidance by radiology, which was successful and drained a small amount of thick fluid which was sentfor culture. Gram stain was returned as gram positive cocci. On the day of discharge, he has been stable and wishes to go home, and as he has not become more ill, this was deemed safe. His white blood cell count did rise to 18, and on admission was 13, but this likely was due to steroid induced leukocytosis, as he has remained afebrile greater than 24 hours and otherwise appears well. He will be discharged on Augmentin XR 2000 mg b.i.d. for 14 days and understands that he should return to clinic in 4 to 5 days or earlier if there are any concerns. Electronically signed on 04/10/2007 14:57 by KELI SANCHEZ MD [place]: [id number] Name: TRAVIS RATLIFF MRN: [id number] Account: [id number] : 1950 Admit Date: Discharge Date: 04/02/2007 Document: [id number] cc: Keli Almaraz MD LE BRANDER documented in this encounter Plan of Treatment Not on filedocumented as of this encounter Visit Diagnoses Not on filedocumented in this encounter
--- OUTSIDE RECORDS SUMMARY | 2021-12-03 08:22 | XMS_ITS | Encounter Summary ---
:1950 Author Organization [place] Address [address] [facility] [place] [address] Care Team Providers Name Role Phone Unavailable Primary Care Provider Unavailable Encounter Details Date Type Department Care Team Description 07/17/2005 Emergency room Kostas Alvarado MD [address] [place] [phone] Social History Tobacco Use Types Packs/Day Years Used Date Smoking Tobacco: Never Assessed Sex Assigned at Date Recorded Not on file documented as of this encounter Progress Notes Interface, Information Developer - 07/19/2005 6:58 AM CDT FINAL PRIVATE DOCTOR: Nelson Almaraz MD CHIEF COMPLAINT: Dizziness and vomiting. HISTORY OF PRESENT ILLNESS: The patient is a 54-year-old male who woke at 3:00 a.m. this morning feeling very dizzy like he was spinning. He became nauseated and started sweating. He got up to the bathroom and then was vomiting and had loose stools 4-5 times. Eventually his daughter called 911. Paramedics responded to the scene and brought him to the department for evaluation. The patient states he had an episode of dizziness 6 weeks ago. He went to an urgent care and was diagnosed with fluid in his ears and prescribed prednisone. He recovered quickly. He says he has been feeling well otherwise. 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 Yesterday he says he was going up and down a lot rock piles. Over the weekend he played golf and had some housework. Otherwise, he has not done anything unusual. He deniesany fevers, aches or chills. He has no complaints of pain. He has not had any urinary symptoms or breathing problems. There has been no trauma. MEDICATIONS: Crestor and Tahmina. ALLERGIES: None. PAST MEDICAL HISTORY: C7 laminectomy, elevated cholesterol, tonsillectomy. He is hard of hearing. SOCIAL HISTORY: He does not smoke or use alcohol. He is and has 2 children. REVIEW OF SYSTEMS: All other systems are negative. PHYSICAL EXAMINATION: GENERAL: Alert male. VITAL SIGNS: Temperature 95.9, pulse 64, respirations 18, blood pressure 128/87 and pulse ox 96% onroom air. HEENT: Normal. He has no nystagmus. His ears are normal. Mouth and pharynx are normal. Tongue is midline. NECK: Supple. LYMPHATICS: Negative. CHEST: Shows clear shallow breath sounds. CARDIOVASCULAR: Regular S1 and S2 without murmur, normal pulses. ABDOMEN: Bowel sounds are active, soft and nontender. No masses or guarding. BACK: Negative. EXTREMITIES: Normal. SKIN: Clear. NEUROLOGIC: Within normal limits. LABORATORY DATA: EKG shows a sinus rhythm at 63 with a QRS is 0.10 milliseconds with normal axis. ST and T waves are normal. Chest x-ray shows a right lower lobe infiltrate or atelectasis. His heart is normal. Head CT without contrast is normal. White count 10,900, hemoglobin 13.8, platelets 171,000,76 PMNs and 13 lymphs. Basic metabolic panel shows glucose of 126 and is normal otherwise. EMERGENCY DEPARTMENT COURSE: The patient was placed in the red room. He was on the hall monitor in a sinus rhythm without ectopy and IV of normal saline was established at 100 cc an hour. He was medicated with 1 mg of Ativan IV and 25 mg of meclizine by mouth. In the ambulance he had 25 mg of Phenergan IV. With the medication the patient's symptoms improved although he was still feeling slightly dizzy his movement sensation stopped. In the meanwhile, his testing was completed. I reviewed the results with him and his daughter. The patient has acute vertigo most likely are multifactorial is not clearly had going on with his GI system nausea might be expected, but diarrhea seems to be unusual. Hedoes have a finding on his chest x-ray and his white count is at the upper limit of normal, and it would be reasonable to cover him with Zithromax for that. Also, we will treat him symptomatically. Hiscardiac monitoring and EKG are benign. At this point the patient is neurologically intact and able to be discharged. The discharge plan was reviewed with him and is as follows. DISCHARGE PLAN: The patient was prescribed Zithromax 500 mg now and 250 mg for 4 more days. Meclizine 25 mg every 4-6 hours as needed for dizziness, #15 and Compazine 10 mg every 6 hours as needed fornausea. He is to avoid greasy, spicy food and should drink extra fluids. I gave him work slip excusing him from his duties for 2 days. He is to be rechecked with his doctor if he is worse anytime or in5-7 days and may return to emergency department as needed. DIAGNOSES: 1. Acute vertigo. 2. Right lower lobe infiltrate. Electronically signed on 07/19/2005 06:57 by KOSTAS ALVARADO MD MT: [id number] Name: TRAVIS RATLIFF Account: [id number] : 1950 Visit Date: 07/17/2005 Document: [id number] cc: Nelson Almaraz MD Interface, Information Developer - 07/18/2005 11:23 AM CDT PRELIMINARY PRIVATE DOCTOR: Nelson Almaraz MD CHIEF COMPLAINT: Dizziness and vomiting. HISTORY OF PRESENT ILLNESS: The patient is a 54-year-old male who woke at 3:00 a.m. this morning feeling very dizzy like he was spinning. He became nauseated and started sweating. He got up to the bathroom and then was vomiting and had loose stools 4-5 times. Eventually his daughter called 911. Paramedics responded to the scene and brought him to the department for evaluation. The patient states he had an episode of dizziness 6 weeks ago. He went to an urgent care and was diagnosed with fluid in his ears and prescribed prednisone. He recovered quickly. He says he has been feeling well otherwise. 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 Yesterday he says he was going up and down a lot rock piles. Over the weekend he played golf and had some housework. Otherwise, he has not done anything unusual. He deniesany fevers, aches or chills. He has no complaints of pain. He has not had any urinary symptoms or breathing problems. There has been no trauma. MEDICATIONS: Crestor and Tahmina. ALLERGIES: None. PAST MEDICAL HISTORY: C7 laminectomy, elevated cholesterol, tonsillectomy. He is hard of hearing. SOCIAL HISTORY: He does not smoke or use alcohol. He is and has 2 children. REVIEW OF SYSTEMS: All other systems are negative. PHYSICAL EXAMINATION: GENERAL: Alert male. VITAL SIGNS: Temperature 95.9, pulse 64, respirations 18, blood pressure 128/87 and pulse ox 96% onroom air. HEENT: Normal. He has no nystagmus. His ears are normal. Mouth and pharynx are normal. Tongue is midline. NECK: Supple. LYMPHATICS: Negative. CHEST: Shows clear shallow breath sounds. CARDIOVASCULAR: Regular S1 and S2 without murmur, normal pulses. ABDOMEN: Bowel sounds are active, soft and nontender. No masses or guarding. BACK: Negative. EXTREMITIES: Normal. SKIN: Clear. NEUROLOGIC: Within normal limits. LABORATORY DATA: EKG shows a sinus rhythm at 63 with a QRS is 0.10 milliseconds with normal axis. ST and T waves are normal. Chest x-ray shows a right lower lobe infiltrate or atelectasis. His heart is normal. Head CT without contrast is normal. White count 10,900, hemoglobin 13.8, platelets 171,000,76 PMNs and 13 lymphs. Basic metabolic panel shows glucose of 126 and is normal otherwise. EMERGENCY DEPARTMENT COURSE: The patient was placed in the red room. He was on the hall monitor in a sinus rhythm without ectopy and IV of normal saline was established at 100 cc an hour. He was medicated with 1 mg of Ativan IV and 25 mg of meclizine by mouth. In the ambulance he had 25 mg of Phenergan IV. With the medication the patient's symptoms improved although he was still feeling slightly dizzy his movement sensation stopped. In the meanwhile, his testing was completed. I reviewed the results with him and his daughter. The patient has acute vertigo most likely are multifactorial is not clearly had going on with his GI system nausea might be expected, but diarrhea seems to be unusual. Hedoes have a finding on his chest x-ray and his white count is at the upper limit of normal, and it would be reasonable to cover him with Zithromax for that. Also, we will treat him symptomatically. Hiscardiac monitoring and EKG are benign. At this point the patient is neurologically intact and able to be discharged. The discharge plan was reviewed with him and is as follows. DISCHARGE PLAN: The patient was prescribed Zithromax 500 mg now and 250 mg for 4 more days. Meclizine 25 mg every 4-6 hours as needed for dizziness, #15 and Compazine 10 mg every 6 hours as needed fornausea. He is to avoid greasy, spicy food and should drink extra fluids. I gave him work slip excusing him from his duties for 2 days. He is to be rechecked with his doctor if he is worse anytime or in5-7 days and may return to emergency department as needed. DIAGNOSES: 1. Acute vertigo. 2. Right lower lobe infiltrate. KOSTAS ALVARADO MD MT: [id number] Name: TRAVIS RATLIFF MRN: [id number] Account: [id number] : 1950 Visit Date: 07/17/2005 Document: [id number] cc: Nelson Almaraz MD documented in this encounter Plan of Treatment Not on filedocumented as of this encounter Visit Diagnoses Not on filedocumented in this encounter
--- OUTSIDE RECORDS SUMMARY | 2021-12-03 08:22 | XMS_ITS | Encounter Summary ---
:1950 Author Organization [place] Address [address] [facility] [place] [address] Care Team Providers Name Role Phone Unavailable Primary Care Provider Unavailable Encounter Details Date Type Department Care Team Description 04/02/2007 Results Only [facility] Bebeto Sanchez MD [facility] Results [facility] [place] [address] [facility] [address] [place], [place] [id number] (Wo rk) Social History Tobacco Use Types Packs/Day Years Used Date Smoking Tobacco: Never Assessed Sex Assigned at Date Recorded Not on file documented as of this encounter Plan of Treatment Not on filedocumented as of this encounter Procedures Procedure Name Priority Date/Time Associated Diagnosis Comme [facility] US GUIDE FOR Routine 04/02/2007 4:14 PM Result s for this 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 documented in this encounter Results SONO GUIDE NEEDLE BIOPSY (04/02/2007 4:14 PM TROLLEY COACH DRIVER) Anatomical Region Laterality Modality Other Specimen (Source) Anatomical Collection Method Collection Time Re ceived Time Location / / Volume Laterality 04/02/2007 4:14 PM TROLLEY COACH DRIVER Impressions 04/03/2007 7:31 AM TROLLEY COACH DRIVER ULTRASOUND-GUIDED ABSCESS DRAINAGE Mar 142007 at 4:14 PM HISTORY: Left sternocleidomastoid muscle abscess and adenitis. COMPARISON: CT scan 03/31/2007. PROCEDURE: Informed consent was obtained for the procedure with discussion including possible risks of b leeding and infection and reaction to lidocaine. Preliminary scann ing revealed an ovoid-shaped collection of hypoechoic material within the sternocleidomastoid muscle, with a defect in the muscle post eriorly leading to a collection just posterior to it, indicat ing rupture of the abscess through the surface of the muscle. Ipsil ateral enlarged lymph nodes were noted. Using local anesthesia with 5 mL 1% lido marcia, sterile technique and sonographic guidance, I placed a 20-gaug e spinal needle into the abscess. Vigorous aspiration yielded abo ut 5 mL of pus. Evaluation at the end of the procedure showed virtuall y no residual pus within the cavity or the communicating collection p osterior to the sternocleidomastoid muscle. The material obtained was submitted for anaerobic and aerobic cultures and sensi tivity and Gram stain. There were no complications. Nikos Sanchez MD [facility] documented in this encounter Visit Diagnoses Not on filedocumented in this encounter
--- OUTSIDE RECORDS SUMMARY | 2021-12-03 08:22 | XMS_ITS | Encounter Summary ---
:1950 Author Organization [place] Address [address] [facility] [place] [address] Care Team Providers Name Role Phone Nelson Almaraz MD Primary Care Provider Encounter Details Date Type Department Care Team Description 03/25/2014 Anesthesia Event [facility] Nelson Lee [place] [facility] sridhar SANDS [address] [facility] ANESTHESIOLOGIS [place] [phone] [phone] [place] [id number] Anesthesia Record Procedure Summary Procedure Name Responsible Anesthesia Start Anesthesia Stop Time Anesthesiologist Time RIGHT LOWER LID Nelson Lee MD 03/25/14 1018 03/25/14 1 054 WEDGE EXCISION WITH FROZEN SECTIONS (Right: Eye) Events Date Time Event Comment 03/25/2014 0916 1018 An Start 1018 An Start Data 1027 AN INCISION 1035 Quick Note Oxygen disconnec case when cautery in use. 1053 an stop data 1054 An Stop Electronically s igned by Nayely Bryson on March 25 5 10:54 AM Name Total fentanyl 50mcg/mL 50 mcg midazolam 1mg/mL 2 mg ondansetron 2mg/mL 4 mg propofol 10mg/mL 30 mg No abx ordered pre-op 1 each lactated ringers infusion 400 mL Agents Name O2 O2 Delivery Device O2 Auxiliary Blood No blood administrations on file. Lines, Drains, and Airways Type Details Placement Removal Peripheral IV 03/25/14; 0921; 22 G; 03/25/14 0921 by Judah, 1120 by Left; Hand; Elina Pritchett, RN Rhea Pretty, Chlorhexidine; RN Injectable; Tolerated well documented in this encounter Social History Tobacco Use Types Packs/Day Years Used Date Smoking Tobacco: Never Alcohol Use Standard Drinks/Week Comments Yes 0 (1 standard drink = 0.6 oz pure alcoho l) social Sex Assigned at Date Recorded Not on file documented as of this encounter OR Notes Anesthesia Postprocedure Evaluation - Nelson Lee MD - 03/25/2014 6:04 PM CST Anesthesia Post-Evaluation Note Patient: Ciro Jasso Patient location: PACU Procedure(s) Performed: Procedure(s) with comments: WEDGE RESECTION EYELID - RIGHT LOWER LID WEDGE EXCISION WITH FROZEN SECTIONS Anesthesia type: MAC Post Op Diagnosis: * No post-op diagnosis entered * No value filed. Patient Condition Respiratory Function (RR / SpO2 / Airway Patency): Satisfactory Cardiac Function (HR / Rhythm / BP): Satisfactory Mental Status: Satisfactory. Able to fully participate in evaluation Temperature: Satisfactory Pain Control: Satisfactory PONV: None Beta-Winnie Therapy: None indicated Hydration Status: Satisfactory Last Vitals: Filed Vitals: 03/25/14 0913 03/25/14 1054 03/25/14 1122 BP: 132/90 138/89 134/92 Temp: 36.3 ??C (97.4 ??F) Resp: 16 16 16 SpO2: 97% 93% 94% Additional Comments: D SWEATBAND CUTTER Anesthesia Preprocedure Evaluation - Nelson Lee MD - 03/25/2014 9:15 AM CST Anesthesia Evaluation . Pt has had prior anesthetic. No history of anesthetic complications ROS/MED HX ENT/Pulmonary: (+)sleep apnea, uses CPAP , . . Neurologic: Cardiovascular: (+) Dyslipidemia, hypertension . : . . . :. . METS/Exercise Tolerance: Hematologic: Musculoskeletal: GI/Hepatic: (-) GERD Renal/Genitourinary: Endo: Psychiatric: Infectious Disease: Malignancy: Other: Physical Exam Normal systems: cardiovascular and pulmonary Airway Mallampati: III TM distance: >3 FB Dental Comment: Upper bridge Cardiovascular Pulmonary Anesthesia Plan ASA Score: 3 . Plan for MAC - Routine analgesia and antiemetics to be used for post-operative care. Anesthetic plan, risks, benefits and alternatives discussed with: patient or construction representative. . History & Physical Review History and physical reviewed and following examination; no interval change. . Procedure: Procedure(s): WEDGE RESECTION EYELID Preop diagnosis: right lower lid lesion No Known Allergies Past Medical History Diagnosis Date ??? Hypertension ??? Sleep apnea ??? Basal cell carcinoma No past surgical history on file. Prior to Admission medications Medication Sig Start Date End Date Taking? Authorizing Provider ASPIRIN PO Take 81 mg by mouth Yes Reported, Patient loratadine (CLARITIN) 10 MG tablet Take 10 mg by mouth daily Yes Reported, Patient LOSARTAN POTASSIUM PO Yes Reported, Patient Rosuvastatin Calcium (CRESTOR PO) Take 5 mg by mouth Yes Reported, Patient Current Facility-Administered Medications Ordered in [facility] Medication Dose Route Frequency Last Rate Last Dose ??? lidocaine BUFFERED 1 % solution 0.1-1 mL 0.1-1 mL Intradermal Once PRN ??? lactated ringers infusion 1,000 mL Intravenous Continuous No current [facility]-ordered outpatient prescriptions on file. Wt Readings from Last 1 Encounters: 03/25/14 104.327 kg (230 lb) Temp Readings from Last 1 Encounters: 03/25/14 36.3 ??C (97.4 ??F) Temporal BP Readings from Last 6 Encounters: 03/25/14 132/90 03/25/14 132/90 Pulse Readings from Last 4 Encounters: No data found for Pulse Resp Readings from Last 1 Encounters: 03/25/14 16 SpO2 Readings from Last 1 Encounters: 03/25/14 97% Recent Labs Lab Test 04/02/07 1120 NA 144 POTASSIUM 3.8 CHLORIDE 104 CO2 29 ANIONGAP 11 GLC 110* BUN 24 CR 1.36 HERBIE 9.0 Recent Labs Lab Test 04/02/07 1120 03/31/07 0635 WBC 18.4* 13.3* HGB 13.7 13.8 PLT 328 260 No results for input(s): INR in the last 98192 hours. Invalid input(s): APTT RECENT LABS: ECG: ECHO: CXR: D SWEATBAND CUTTER documented in this encounter Miscellaneous Notes Anesthesia Care Transfer Note - Nayely Bryson - 03/25/2014 10:53 AM WIRED SWEATBAND CUTTER Anesthesia Care Transfer Note Patient: Ciro Jasso Transferred to: PACU Patient vital signs: stable Airway: none D SWEATBAND CUTTER documented in this encounter Plan of Treatment Not on filedocumented as of this encounter Visit Diagnoses Not on filedocumented in this encounter Administered Medications Inactive Administered Medications - up to 3 most recent administrations Medication Order MAR Action Action Date Dose Rate Site fentaNYL (SUBLIMAZE) injection Given 03/25/2014 10:23 AM WIRED SWEATBAND CUTTER 50 mcg PRN, moderate to severe pain, Starting on Fri03/25/14 at 1023, Anesthesia Intra-op midazolam (VERSED) injection Given 03/25/2014 10:23 AM WIRED SWEATBAND CUTTER 2 mg PRN, anxiety, Starting on Fri03/25/14 at 1023, Anesthesia Intra-op No antibiotic Given 03/25/2014 10:19 AM WIRED SWEATBAND CUTTER 1 each PRN, Starting on Fri03/25/14 at 1019, Until Fri03/25/14 at 1054, Anesthesia Intra-op ondansetron (ZOFRAN) injection Given 03/25/2014 10:29 AM WIRED SWEATBAND CUTTER 4 mg PRN, nausea, vomiting, Administer over 2-5 Minutes, Starting on Fri03/25/14 at 1029, Anesthesia Intra-op propofol (DIPRIVAN) injection 10 mg/mL v ial Given 03/25/2014 10:23 AM WIRED SWEATBAND CUTTER 30 mg PRN, Starting on Fri03/25/14 at 1023, Anesthesia Intra-op documented in this encounter Care Teams Interactive Video Technician Relationship Specialty Start Date End Date Nelson Almaraz MD PCP - General Family Practice 03/15/14 03/12/[address] [phone] documented as of this encounter
--- OUTSIDE RECORDS SUMMARY | 2021-12-03 08:23 | XMS_ITS | Encounter Summary ---
:1950 Author Organization [facility] Address [address] [place] [address] Care Team Providers Name Role Phone Unavailable Primary Care Provider Unavailable Reason for Referral (Routine) - Closed Specialty Diagnoses / Procedures Referred By Contact Refer red To Contact Diagnoses Physical exam Veronica Francis PA-C Procedures IRON, SERUM [address] [place] [address] Referral ID Status Reason Start Date Expiration Date Visits Requ ested Visits Authorized [id number] Closed 12/11/2017 12/11/2018 1 1 Reason for Visit Reason Comments Physical HD Encounter Details Date Type Department Care Team Description 12/11/2017 Office Visit [facility] Veronica Francis Phy sical exam (Primary Clinic - [place] PA-C Dx) [address] [facility] [address] [place] [address] [place] [phone] [phone] Social History Tobacco Use Types Packs/Day Years Used Date Smoking Tobacco: Never Smokeless Tobacco: Never Sex Assigned at Date Recorded Male 12/11/2017 10:53 AM CDT documented as of this encounter Last Filed Vital Signs Vital Sign Reading Time Taken Comments Blood Pressure 110/80 12/11/2017 10:53 AM CDT Pulse 64 12/11/2017 10:53 AM CDT Temperature - - Respiratory Rate - - Oxygen Saturation - - Inhaled Oxygen Concentration - - Weight 100.7 kg (222 lb) 12/11/2017 10:53 AM CDT Height 175.3 cm (5' 9) 12/11/2017 10:53 AM CDT Body Mass Index 32.78 12/11/2017 10:53 AM CDT documented in this encounter Progress Notes Veronica Francis PA-C - 12/11/2017 10:12 AM CDT [facility] Travis Ratliff is a 67 y.o. male being seen today for a [facility]. See booklet for details. Veronica Francis PA-C documented in this encounter Plan of Treatment Scheduled Orders Name Type Priority Associated Diagnoses Order S chedule SPIROMETRY OP Respiratory Routine Physical exam Ordered: 02/2017 documented as of this encounter Procedures Procedure Name Priority Date/Time Associated Comments Diagnosis EKG WITH Routine 12/11/2017 10:58 AM Physical exam Results for this INTERPRETATION/REPOR CDT procedu re are in T the results section. PSA SCREEN OP Routine 12/11/2017 10:21 AM Physical exam Result s for this CDT procedure are i n the results section. HD URINALYSIS OP Routine 12/11/2017 10:21 AM Physical exam Res ults for this CDT procedure are i n the results section. HD CHEMISTRY PANEL Routine 12/11/2017 10:21 AM Physical exam R esults for this OP CDT procedure are i n the results section. CBC/DIFFERENTIAL OP Routine 12/11/2017 10:21 AM Physical exam Results for this CDT procedure are i n the results section. IRON, SERUM Routine 12/11/2017 10:21 AM Physical exam Results for this CDT procedure are i n the results section. documented in this encounter Results EKG WITH INTERPRETATION/REPORT (12/11/2017 10:58 AM CDT) P athologist Signature EKG ILDEFONSO SELF Comment: ? Test Date: ?2017-12-11 Pat Name: ? TRAVIS RATLIFF ?Department: ?? [facility] ?Room: ? Gender: ? M ?[employer]: ?? [id number] : ?1950 ? Requested By: VERONICA FRANCIS MD Order Number: [id number] ?Reading MD: ?? Veronica Francis PA ? Measurements Intervals ?[place] ? Rate: ? 59 ? P: ?12 TN: ? 187 ?QRS: ?-15 QRSD: ? 118 ?T: ?18 QT: ? 451 ? QTc: ?450 ? Interpretive Statements SINUS BRADYCARDIA MODERATE INTRAVENTRICULAR CONDUCTION DEL AY [110+ ms QRS DURATION] No previous ECG available for comparison Electronically Signed On 12-11-2017 12:08 :59 CDT by Veronica MENDEZ Specimen (Source) Anatomical Collection Method Collection Time Re ceived Time Location / / Volume Laterality 12/11/2017 10:58 AM CDT Narrative This result has an attachment that is no t available. Veronica Francis PA-C CARDIO ORDERABLE Performing Organization Address City/State/ZIP Code Phon e Number [facility] [address] [place] [address] PSA SCREEN OP (12/11/2017 10:21 AM CDT) P athologist Signature PSA OP 0.21 <=4.00 12/11/2017 [facility] ng/mL 2:34 PM CDT [facility] Specimen Anatomical Collection Method / Collection Time Recei catalina Time (Source) Location / Volume Laterality Blood Venipuncture / 12/11/2017 10:21 8 Unknown AM CDT 10:21 AM CDT Narrative [facility] [place] - 12/11/2017 2:34 PM CDT Testing is performed by EIA (Enzyme Immu noassay) based on the sandwich principle. ??Values obtained with different assay m ethods cannot be used interchangeably. Veronica Francis PA-C CHEMISTRY ORDERABLE Performing Organization Address City/State/ZIP Code Phon e Number [facility] - [address] [facility] [place] [address] [facility] - [address] [place] [address] [facility] IRON, SERUM (12/11/2017 10:21 AM CDT) P athologist Signature IRON 130 50 - 175 12/11/2017 [facility] ug/dL 5:13 PM CDT [facility] Specimen Anatomical Collection Method / Collection Time Recei catalina Time (Source) Location / Volume Laterality Blood Venipuncture / 12/11/2017 10:21 8 Unknown AM CDT 10:21 AM CDT Veronica Francis PA-C CHEMISTRY ORDERABLE Performing Organization Address City/State/ZIP Code Phon e Number [facility] [address] [place] [address] LABORATORY (ABNORMAL) CBC/DIFFERENTIAL OP (12/11/2017 10:21 AM CDT) Analysis Performed At Patho logist Time Signature WBC OP 9.0 4.3 - 10.8 12/11/2017 [place] K/UL 11:08 AM CDT [facility] RBC OP 4.85 4.60 - 12/11/2017 [place] 6.20 M/UL 11:08 AM CDT [facility] HEMOGLOBIN OP 15.4 14.0 - 12/11/2017 [place] 18.0 gm/dL 11:08 AM CDT [facility] HEMATOCRIT OP 43.4 40.0 - 12/11/2017 [place] 54.0 % 11:08 AM CDT [facility] MCV OP 90 80 - 100 12/11/2017 [place] fl 11:08 AM CDT [facility] MCH OP 31.8 27.0 - 12/11/2017 [place] 33.0 pg 11:08 AM CDT [facility] MCHC OP 35.5 33.0 - 12/11/2017 [place] 36.0 gm/dL 11:08 AM CDT [facility] RDW OP 12.8 11.5 - 12/11/2017 [place] 14.5 % 11:08 AM CDT [facility] PLATELET COUNT 253 150 - 400 12/11/2017 [place] OP K/UL 11:08 AM CDT [facility] MPV OP 9.9 6.5 - 12.0 12/11/2017 [place] 11:08 AM CDT [facility] PMN % OP 52.4 % 12/11/2017 [place] 11:08 AM T [facility] LYMPHOCYTE % OP 29.2 % 12/11/2017 [place] 11:08 AM T [facility] MONOCYTE % OP 13.2 % 12/11/2017 [place] 11:08 AM T [facility] EOSINOPHIL % OP 4.8 % 12/11/2017 [place] 11:08 AM T [facility] BASOPHIL % OP 0.4 % 12/11/2017 [place] 11:08 AM T [facility] PMN ABSOLUTE OP 4.69 1.80 - 12/11/2017 [place] 7.80 K/uL 11:08 AM [facility] LYMPHOCYTE 2.62 1.00 - 12/11/2017 [place] ABSOLUTE OP 4.00 K/uL 11:08 AM [facility] MONOCYTE 1.18 (H) 0.00 - 12/11/2017 [place] ABSOLUTE OP 1.00 K/uL 11:08 AM [facility] EOSINOPHIL 0.43 0.00 - 12/11/2017 [place] ABSOLUTE OP 0.45 K/uL 11:08 AM [facility] BASOPHIL 0.04 0.00 - 12/11/2017 [place] ABSOLUTE OP 0.20 K/uL 11:08 AM [facility] Specimen Anatomical Collection Method / Collection Time Recei catalina Time (Source) Location / Volume Laterality Blood Venipuncture / 12/11/2017 10:21 12/11/201 8 Unknown AM CDT 10:21 AM CDT Veronica Francis PA-C HEMATOLOGY ORDERABLE Performing Organization Address City/State/ZIP Code Phon e Number [facility] - [address] [place], [place] [address] [facility] - [address] [place] [address] [facility] HD URINALYSIS OP (12/11/2017 10:21 AM CDT) [facility] Method Time Signature UA PH OP 6.5 5.0, 5.5, 12/11/2017 [place] 6.0, 6.5, 11:08 AM [facility] 7.0, 7.5, 8.0 [facility] - [facility] UA SPECIFIC 1.020 1.015, 1.020, 12/11/2017 [place] GRAVITY OP 1.025 11:08 AM [facility] UA PROTEIN OP Negative Negative 12/11/2017 [place] mg/dL 11:08 AM [facility] - [facility] UA GLUCOSE OP Negative Negative 12/11/2017 [place] mg/dL 11:08 AM [facility] - [facility] UA KETONES OP Negative Negative 12/11/2017 [place] mg/dL 11:08 AM [facility] - [facility] UA BILIRUBIN OP Negative Negative 12/11/2017 [facility] 11:08 AM [facility] - [facility] UA BLOOD OP Negative Negative, 12/11/2017 [facility] Trace 11:08 AM [facility] UROBILINOGEN 0.2 0.2, 1.0 12/11/2017 [place] OP EU/dL 11:08 AM [facility] LEUKOCYTE Negative Negative, 12/11/2017 [place] ESTERASE OP Trace 11:08 AM [facility] NITRITE OP Negative Negative 12/11/2017 [facility] 11:08 AM [facility] - [facility] RBC UA OP None Seen None Seen, 12/11/2017 [place] Occasional 11:08 AM [facility] /[facility] WBC UA OP None Seen None Seen, 12/11/2017 [place] Occasional, 11:08 AM [facility] 1-4 /[facility] Specimen Anatomical Collection Method Collection Time Receive d Time (Source) Location / / Volume Laterality Urine 12/11/2017 10:21 12/11/2017 AM CDT 10:21 AM CDT Veronica Francis PA-C URINE ORDERABLE Performing Organization Address City/State/ZIP Code Phon e Number [facility] - [address] [place] [address] [facility] - [address] [place] [address] [facility] (ABNORMAL) HD CHEMISTRY PANEL OP (12/11/2017 10:21 AM CDT) [facility] Method Time Signature GLUCOSE OP 118 (H) 70 - 110 12/11/2017 [facility] mg/dL 2:34 PM T [facility] BUN (UREA NITRO) 25 (H) 7 - 18 12/11/2017 [place] OP mg/dL 2:34 PM [facility] CREATININE OP 1.40 (H) 0.80 - 12/11/2017 [facility] 1.30 2:34 PM T [facility] mg/dL [facility] EST GFR (CKD-EPI) 51 (L) >60 12/11/2017 [place] OP mL/min 2:34 PM T [facility] GFR IF >60 >60 12/11/2017 [place] AM OP mL/min 2:34 PM T [facility] SODIUM OP 141 136 - 145 12/11/2017 [place] mmol/L 2:34 PM T [facility] POTASSIUM OP 3.5 3.5 - 5.1 12/11/2017 [place] mmol/L 2:34 PM T [facility] CHLORIDE OP 100 98 - 107 12/11/2017 [place] mmol/L 2:34 PM [facility] CARBON DIOXIDE OP 30 21 - 32 12/11/2017 [place] mmol/L 2:34 PM [facility] ANION GAP OP 11.0 0.0 - 12/11/2017 [place] 15.0 2:[address] [facility] mmol/L [facility] PROTEIN TOTAL OP 8.5 (H) 6.4 - 8.2 12/11/2017 [place] g/dL 2:34 PM [facility] ALBUMIN OP 4.3 3.4 - 5.0 12/11/2017 [facility] g/dL 2:34 PM [facility] CALCIUM, SERUM OP 9.1 8.5 - 12/11/2017 [facility] 10.1 2:[address] [facility] mg/dL [facility] PHOSPHORUS OP 3.8 2.5 - 4.9 12/11/2017 [place] mg/dL 2:34 PM [facility] URIC ACID OP 11.2 (H) 2.6 - 7.2 12/11/2017 [facility] mg/dL 2:34 PM T [facility] ALKALINE P'TASE 80 45 - 117 12/11/2017 [place] OP IU/L 2:34 PM T [facility] ALT (SGPT) OP 99 (H) 12 - 68 12/11/2017 [facility] IU/L 2:34 PM [facility] AST (SGOT) OP 101 (H) 15 - 37 12/11/2017 [facility] IU/L 2:34 PM T [facility] BILIRUBIN-TOTAL 0.8 0.2 - 1.0 12/11/2017 [facility] OP mg/dL 2:34 PM [facility] BILIRUBIN-DIRECT 0.17 <=0.20 12/11/2017 [place] OP mg/dL 2:34 PM [facility] GGTP (GAMMA-GTP) 39 15 - 85 12/11/2017 [place] OP IU/L 2:34 PM [facility] LDH TOTAL OP 237 (H) 85 - 227 12/11/2017 [place] IU/L 2:34 PM T [facility] TRIGLYCERIDES 154 (H) <150 12/11/2017 [place] PROFILE OP mg/dL 2:34 PM [facility] CHOLESTEROL OP 160 <=200 12/11/2017 [place] mg/dL 2:34 PM [facility] HDL CHOLESTEROL 36 (L) >=40 12/11/2017 [place] OP mg/dL 2:34 PM [facility] LDL CHOL, CALC OP 93 <100 12/11/2017 [facility] mg/dL 2:34 PM [facility] CHOL/HDL RATIO OP 4.4 0.0 - 4.9 12/11/2017 [facility] 2:34 PM [facility] SPECIMEN TYPE 12/11/2017 [facility] 2:34 PM [facility] BUN/Creatinine 17.9 mg/dL 12/11/2017 [facility] Ratio OP 2:34 PM [facility] Globulin OP 4.2 g/dL 12/11/2017 [facility] 2:34 PM T [facility] A/G Ratio OP 1.0 g/dL 12/11/2017 [facility] 2:34 PM CDT [facility] [place] Specimen Anatomical Collection Method / Collection Time Recei catalina Time (Source) Location / Volume Laterality Blood Venipuncture / 12/11/2017 10:21 8 Unknown AM CDT 10:21 AM CDT Narrative [facility] [place] - 12/11/2017 2:34 PM CDT LDL CHOLESTEROL REFERENCE RANGES: (FOR PATIENTS W/O HEART DISEASE) <100 mg/dL = Optimal 100-129 mg/dL = Near/Above Optimal 130-159 mg/dL = Borderline High 160-189 mg/dL = High >/= 190 mg/dL = Very High Veronica Francis PA-C CHEMISTRY ORDERABLE Performing Organization Address City/State/ZIP Code Phon e Number [facility] - [address] [place] [address] [place] [facility] - [address] [place] [address] [place] documented in this encounter Visit Diagnoses Diagnosis Physical exam - Primary documented in this encounter
--- OUTSIDE RECORDS SUMMARY | 2021-12-03 08:23 | XMS_ITS | Clinical Summary ---
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 Colonoscopy 04/2011 large polyp repeat in 6 months Colonoscopy 11/2011 benign tissue repeat in 3 years Colonoscopy 12/2014 polyps repeat in 5 y ears Sensorineural hearing loss, bilateral 03/20/2007 Social History Tobacco Use Types Packs/Day Years Used Date Smoking Tobacco: Never Smokeless Tobacco: Never Sex Assigned at Date Recorded Male 12/11/2017 10:53 AM CDT Last Filed Vital Signs Vital Sign Reading [...] Mass Index 32.78 12/11/2017 10:53 AM CDT Plan of Treatment Health Maintenance Due Date Last Done Comments Colonoscopy 1950 Hepatitis C Screening 1950 Lipid Screening 1950 COVID-19 Vaccine (#1) 04/09/1951 Yearly Review of HCD 2002 Zoster Vaccine (2 of 3) 04/01/2014 02/04/2014 Pneumococcal 65+ (2 - PPSV23 if 12/15/2018 12/15/2017, 11/10, available, else PCV20) 07/15/2014 Influenza Vaccine (#1) 2021 12/15/2017, 12/27/2010, 02/14/2009 Adult Tetanus Booster 07/15/2024 07/15/2014 Insurance Payer Benefit Plan / Subscriber ID Effective Dates Phone Addre ss Type Group [employer] CC [id number] 2017-Janneth [phone] [address] [address] [place] [address]
--- OUTSIDE RECORDS SUMMARY | 2021-12-03 08:23 | XMS_ITS | Encounter Summary ---
:1950 Author Organization [facility] Address [address] [place] [address] Care Team Providers Name Role Phone Unavailable Primary Care Provider Unavailable Reason for Visit Reason Comments Nutrition consult Encounter Details Date Type Department Care Team Description 01/15/2018 Office Visit [facility] Devorah Barrera RD En counter for other Clinic - [facility] examination Diabetes Education (Primary Dx) [address] [place] [address] Social History Tobacco Use Types Packs/Day Years Used Date Smoking Tobacco: Never Smokeless Tobacco: Never Sex Assigned at Date Recorded Male 12/11/2017 10:53 AM CDT documented as of this encounter Progress Notes Devorah Barrera RD - 01/15/2018 12:30 PM CST Reviewed [facility] results with patient by phone. RADIANT ANALYST documented in this encounter Plan of Treatment Not on filedocumented as of this encounter Visit Diagnoses Diagnosis Encounter for other general examination - Primary documented in this encounter
--- OUTSIDE RECORDS SUMMARY | 2021-12-03 08:23 | XMS_ITS | Clinical Summary ---
:1950 Author Organization [facility] [place] [address] Care Team Providers Name Role Phone Mary Vasquez Elmer Unavailable [phone] Davey Lancaster MD Primary Care Provider Allergies No known active allergies Medications Medication Sig Dispensed Refills Start Date End Date Status FIBERCON 625 MG TAB take two 60 0 03/25/2008 Active tablets in the morning Meperidine, PF, (DEMEROL, Inject 1 Syringe 0 05/02/2011 Active PF,) 75 mg/mL Syrg intravenous. Per Dr.Gadek STEVENSON aspirin (ECOTRIN) 81 mg Take 1 tablet 30 tablet 0 12/16/2014 Active enteric coated tablet by mouth once daily with a meal. metFORMIN (GLUCOPHAGE XR) Take 1 tablet 30 tablet 0 12/16/2014 Active 750 mg Extended-Release by mouth once tablet daily with evening meal. pregabalin (LYRICA) 50 mg 0 08/27/2019 Active capsule hydroCHLOROthiazide (HCTZ) 0 08/27/2019 Active 25 mg tablet allopurinoL (ZYLOPRIM) 100 0 08/27/2019 Active mg tablet loratadine (CLARITIN) 10 Take 10 mg by 0 Active mg tablet mouth. 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 Colonoscopy 04/2011 large polyp repeat in 6 months Colonoscopy 11/2011 benign tissue repeat in 3 years Colonoscopy 12/2014 polyps repeat in 5 y ears Colonoscopy 09/2019 four polyps, repeat i n 3 years, PEG 8L Sensorineural hearing loss, bilateral 03/20/2007 Immunizations Name Administration Dates Next Due Zoster (Zostavax-ZVL, live) 02/04/2014 Social History Tobacco Use Types Packs/Day Years Used Date Never Smoker Smokeless Tobacco: Never Used Tobacco Cessation: Counseling Given: Yes Alcohol Use Standard Drinks/Week Comments Not Asked 0 (1 standard drink = 0.6 oz pure alcoho l) Sex Assigned at Date Recorded Not on file Obstetrics History Last Filed Vital Signs Vital Sign Reading Time Taken Comments Blood Pressure 136/79 09/15/2019 8:53 AM CDT Pulse 59 09/15/2019 8:53 AM CDT Temperature - - Respiratory Rate - - Oxygen Saturation 99% 09/15/2019 8:53 AM CDT Inhaled Oxygen Concentration - - Weight 106.3 kg (234 lb 6.4 oz) 11/11/2012 10:02 AM CDT Height - - Body Mass Index - - Plan of Treatment Health Maintenance Due Date Last Done Comments Tdap 10/11/1963 Depression screening for age 12+ 1964 BMI (ht and wt on same day) for 1970 age 18+ Hepatitis C screening for age 0810/10/1970 18-79 Tetanus booster 1972 Lipids for age 45-75 1997 Zoster (shingles) series for age 0204/01/2014 02/04/2014 50+ (2 of 3) Medicare Wellness for age 65+ 2017 Pneumococcal series for age 65+ (1 2017 - PCV) COVID-19 vaccine series (2 - 06/19/2021 05/29/2021 Pfizer series) Influenza for age 65+ 10/11/2021 Colonoscopy through age 75 09/14/2022 09/15/2019, 0, 12/16/2014, Additional history exists Results Not on filefrom Last 3 Months Insurance Payer Benefit Plan / Subscriber ID Effective Dates Phone Addre ss Type Group [facility] MR [id number] 2021-Present [address] [address] [place] [address] [address] (Home) [facility] [facility] [address] Care Teams Private Duty Nurse Relationship Specialty Start Date End Date Davey Lancaster MD PCP - General Family Practice 08/24/21 [address] [place] [address] Mary Vasquez AuD Provider Audiology 07/11/11
[2021-12-03 10:13] LABS: Creatinine Urine 151.7 mg/dL
[2021-12-03 10:15] LABS: Microalbumin Creatinine Ratio 0 mg/g (0-30); Microalbumin Urine 1 mg/dL
[2021-12-03 10:31] LABS: Albumin* 4.6 g/dL (3.3-5.0); Chloride* 95 mmol/L (96-114)
[2021-12-03 10:32] LABS: Potassium* 3.6 mmol/L (3.6-5.1); Sodium* 137 mmol/L (135-149)
[2021-12-03 10:34] LABS: Alkaline Phosphatase* 90 U/L (40-150); Aspartate Amino Transferase* 40 U/L (12-35); Bilirubin Total* 0.7 mg/dL (0.1-1.5); Blood Urea Nitrogen* 24 mg/dL (7-30); Carbon Dioxide* 30 mmol/L (20-32); Cholesterol* 147 mg/dL (90-199); Creatinine* 1.2 mg/dL (0.5-1.5); Estimated Glomerular Filt Rate 65 ml/min; Total Protein* 7.2 g/dL (6.0-8.3)
[2021-12-03 10:35] LABS: Alanine Aminotransferase* 30 U/L (4-50); Calcium* 9.5 mg/dL (8.4-10.6); Glucose* 140 mg/dL (60-115); HDL Cholesterol* 33 mg/dL (>=40); LDL Cholesterol Calculated 51 mg/dL (<100); Triglycerides* 315 mg/dL (40-149)
[2021-12-03 11:06] LABS: PSA Screen* 0.28 ng/mL (0.10-4.00)
[2021-12-03 11:25] LABS: Vitamin B12* 405 pg/mL (243-894)
== END 2021-12-03 14:39 | disposition home or self-care (01) ==
PROVIDERS: PCP Family Medicine; Visit Provider Family Medicine
DX: Z00.00 Encounter for general adult medical examination without abnormal findings (principal); E11.9 Type 2 diabetes mellitus without complications; E03.9 Hypothyroidism, unspecified; I10 Essential (primary) hypertension; E78.5 Hyperlipidemia, unspecified; Z12.5 Encounter for screening for malignant neoplasm of prostate; Z79.899 Other long term (current) drug therapy
CPT/HCPCS: 80053; 80061; 82043; 82570; 82607; 84153; 84443

== ENCOUNTER 2022-01-10 09:48 | Outpatient (CLI) | payer MEDICARE, SELFPAY ==
--- OUTSIDE RECORDS SUMMARY | 2022-01-10 09:53 | XMS_ITS | Clinical Summary ---
:1950 Author Organization [facility] [place] Address [facility] [place] [address] Care Team Providers Name Role Phone Victor Manuel Olea MD Primary Care Provider [phone] Allergies No known active allergies Medications [...] Comments Blood Pressure 175/109 03/04/2017 8:15 PM INSPECTOR MISSILE Pulse 68 03/04/2017 6:32 PM INSPECTOR MISSILE Temperature 36.3 ??C (97.4 ??F) 03/04/2017 6:32 PM INSPECTOR MISSILE Respiratory Rate 14 03/04/2017 8:15 PM INSPECTOR MISSILE Oxygen Saturation 93% 03/04/2017 8:00 PM INSPECTOR MISSILE Inhaled Oxygen Concentration - - Weight 104.3 kg (230 lb) 03/25/2014 9:13 AM INSPECTOR MISSILE Height 175.3 cm (5' 9) 03/25/2014 9:13 AM INSPECTOR MISSILE Body Mass Index 33.97 03/25/2014 9:13 AM INSPECTOR MISSILE Plan of Treatment Not on file Care Teams Rehabilitation Services Aide Relationship Specialty Start Date End Date Victor Manuel Olea MD PCP - General 03/04/17
--- OUTSIDE RECORDS SUMMARY | 2022-01-10 09:53 | XMS_ITS | Encounter Summary ---
:1950 Author Organization [place] Address [address] [place] [address] Care Team Providers Name Role Phone Victor Manuel Olea MD Primary Care Provider [phone] Reason for Visit Reason Comments Hypertension Encounter Details Date Type Department Care Team Description 03/04/2017 Emergency [facility], Essential hypertension [facility] Emergency DO Dept [facility] [address] [place], [place] [address] [address] [address] [address] [place] [address] (Wo rk) Social History Tobacco Use Types Packs/Day Years Used Date Smoking Tobacco: Never Alcohol Use Standard Drinks/Week Comments Yes 0 (1 standard drink = 0.6 oz pure alcoho l) social Sex Assigned at Date Recorded Not on file documented as of this encounter Last Filed Vital Signs Vital Sign Reading Time Taken Comments Blood Pressure 175/109 03/04/2017 8:15 PM MATERIAL ENGINEER Pulse 68 03/04/2017 6:32 PM MATERIAL ENGINEER Temperature 36.3 ??C (97.4 ??F) 03/04/2017 6:32 PM MATERIAL ENGINEER Respiratory Rate 14 03/04/2017 8:15 PM MATERIAL ENGINEER Oxygen Saturation 93% 03/04/2017 8:00 PM MATERIAL ENGINEER Inhaled Oxygen Concentration - - Weight - - Height - - Body Mass Index - - documented in this encounter Discharge Instructions Discharge InstructionsJayden Valladares, - 03/04/2017 7:38 PM MATERIAL ENGINEER Images from the original note were not [...] that have heart stimulants. This includes many wtml-rhk-rryrcef cold and sinus decongestant pills and sprays, as well as diet pills. Check the warnings about hypertension on the label. Before purchasing any bhjd-ipm-zcllcba medicines or supplements, always ask the pharmacist [...] one of these at most pharmacies. The [place] [employer] recommends the following guidelines for [...] or seeing?? Date Last Reviewed: 01/11/2016 ?? [id number] [employer]. [address] [place] [address]. All rights reserved. This information is not intended as a substitute for professional medical care. Always follow your healthcare professional's instructions. RIAL ENGINEER documented in this encounter Medications at Time [...] ABCs intact. Alert and oriented x 3. RIAL ENGINEER Jayden Valladares DO - 03/04/2017 6:27 PM [...] change compared to 03/08/14 Rate 69 bpm. IA interval 180. QRS duration 92. QT/QTc 418/447. [...] and the provider's statements to me. 03/04/2017 [facility] Jayden Valladares DO 03/04/17 6408 RIAL ENGINEER documented in this encounter Plan of Treatment Not on filedocumented as of this encounter Procedures Procedure Name Priority Date/Time Associated Comments Diagnosis CBC WITH PLATELETS & STAT 03/04/2017 6:45 PM R esults for this DIFFERENTIAL MATERIAL ENGINEER procedure are i n the results section. TROPONIN I STAT 03/04/2017 6:45 PM Results f or this MATERIAL ENGINEER procedure are i n the results section. BASIC METABOLIC PANEL STAT 03/04/2017 6:45 PM Results for this MATERIAL ENGINEER procedure are i n the results section. EKG 12-LEAD, TRACING STAT 03/04/2017 6:36 PM R esults for this ONLY MATERIAL ENGINEER procedure are i n the results section. documented in this encounter Results Troponin I (03/04/2017 6:45 PM MATERIAL ENGINEER) athologist Signature Troponin I ES 0.015 0.000 - 03/04/2017 [place] 0.045 ug/L 7:20 PM [facility] Comment: The 99th percentile for upper reference range is 0.045 ug/L. ??Troponin values in the range of 0.045 - 0.120 ug/L may b e associated with risks of adverse clinical events. Specimen Anatomical Collection Method Collection Time Receive d Time (Source) Location / / Volume Laterality Blood specimen 03/04/2017 6:45 PM 018 6:57 (specimen) MATERIAL ENGINEER PM MATERIAL ENGINEER Jayden Valladares DO LAB - BLOOD ORDERABLES Performing Organization Address City/State/ZIP Code Phon e Number M [facility] [address] [place], [place] [address] [facility] [address] [place], [place] [address] [phone] (ABNORMAL) Basic metabolic panel (03/04/2017 6:45 PM MATERIAL ENGINEER) athologist Signature Sodium 136 133 - 144 03/04/2017 [place] mmol/L 7:20 PM [facility] Potassium 3.7 3.4 - 5.3 03/04/2017 [place] mmol/L 7:20 PM [facility] Chloride 104 94 - 109 03/04/2017 [place] mmol/L 7:20 PM [facility] Carbon Dioxide 23 20 - 32 03/04/2017 [place] mmol/L 7:20 PM [facility] Anion Gap 9 3 - 14 03/04/2017 [place] mmol/L 7:20 PM [facility] Glucose 157 (H) 70 - 99 03/04/2017 [place] mg/dL 7:20 PM [facility] Urea Nitrogen 21 7 - 30 03/04/2017 [place] mg/dL 7:20 PM [facility] Creatinine 0.99 0.66 - 03/04/2017 [facility] 1.25 mg/dL 7:20 PM [facility] GFR Estimate 76 >60 03/04/2017 [facility] mL/min/1.7 7:[address] Comment: Non GFR Calc GFR Estimate If >90 >60 mL/min/1.7m2 03/04/2017 7:20 P [facility] Comment: GFR Calc Calcium 8.7 8.5 - 10.1 mg/dL 03/04/2017 7:20 PM [facility] Specimen Anatomical Collection Method Collection Time Receive d Time (Source) Location / / Volume Laterality Blood specimen 03/04/2017 6:45 PM 018 6:57 (specimen) MATERIAL ENGINEER PM MATERIAL ENGINEER Jayden Valladares DO LAB - BLOOD ORDERABLES Performing Organization Address City/State/ZIP Code Phon e Number M [facility] [address] [place], [place] [address] [facility] [address] [place], [place] [address] [facility] [phone] (ABNORMAL) CBC with platelets differential (03/04/2017 6:45 PM MATERIAL ENGINEER) [facility] gist Method Time Signature WBC 8.9 4.0 - 03/04/2017 [facility] 11.0 7:00 PM [facility] 10e9/L [facility] RBC Count 4.40 4.4 - 5.9 03/04/2017 [facility] 10e12/L 7:00 PM [facility] Hemoglobin 13.8 13.3 - 03/04/2017 [facility] 17.7 g/dL 7:00 PM [facility] Hematocrit 39.7 (L) 40.0 - 03/04/2017 [facility] 53.0 % 7:00 PM [facility] MCV 90 78 - 100 03/04/2017 [facility] fl 7:00 PM [facility] MCH 31.4 26.5 - 03/04/2017 [facility] 33.0 pg 7:00 PM [facility] MCHC 34.8 31.5 - 03/04/2017 [facility] 36.5 g/dL 7:00 PM [facility] RDW 12.6 10.0 - 03/04/2017 [facility] 15.0 % 7:00 PM [facility] Platelet Count 207 150 - 450 03/04/2017 [facility] 10e9/L 7:00 PM [facility] Diff Method Automated 03/04/2017 [facility] Method 7:00 PM [facility] % Neutrophils 54.8 % 03/04/2017 [facility] 7:00 PM [facility] % Lymphocytes 27.4 % 03/04/2017 [facility] 7:00 PM [facility] % Monocytes 11.8 % 03/04/2017 [facility] 7:00 PM [facility] % Eosinophils 5.0 % 03/04/2017 [facility] 7:00 PM [facility] % Basophils 0.8 % 03/04/2017 [facility] 7:00 PM [facility] % Immature 0.2 % 03/04/2017 [facility] Granulocytes 7:00 PM [facility] Nucleated RBCs 0 0 /100 03/04/2017 [facility] 7:00 PM [facility] Absolute 4.9 1.6 - 8.3 03/04/2017 [facility] Neutrophil 10e9/L 7:00 PM [facility] Absolute 2.4 0.8 - 5.3 03/04/2017 [facility] Lymphocytes 10e9/L 7:00 PM [facility] Absolute 1.1 0.0 - 1.3 03/04/2017 [facility] Monocytes 10e9/L 7:00 PM [facility] Absolute 0.4 0.0 - 0.7 03/04/2017 [facility] Eosinophils 10e9/L 7:00 PM [facility] Absolute 0.1 0.0 - 0.2 03/04/2017 [facility] Basophils 10e9/L 7:00 PM [facility] Abs Immature 0.0 0 - 0.4 03/04/2017 [facility] Granulocytes 10e9/L 7:00 PM [facility] Absolute 0.0 03/04/2017 [facility] Nucleated RBC 7:00 PM [facility] Specimen Anatomical Collection Method Collection Time Receive d Time (Source) Location / / Volume Laterality Blood specimen 03/04/2017 6:45 PM 018 6:57 (specimen) MATERIAL ENGINEER PM MATERIAL ENGINEER Jayden Valladares DO LAB - BLOOD ORDERABLES Performing Organization Address City/[facility]/ZIP Code Phon e Number [employer] [address] [place] [address] [facility] [address] [phone] EKG 12 lead (03/04/2017 6:36 PM MATERIAL ENGINEER) [facility] gist Method Time Signature Interpretation ECG Click View RADIOLOGY Image link RESULTS to view waveform and result Specimen (Source) Anatomical Collection Method Collection Time Re ceived Time Location / / Volume Laterality 03/04/2017 6:36 PM MATERIAL ENGINEER Wilma Aldana MD ECG ORDERABLES Performing Organization Address City/[facility]/ZIP [facility] Phon e Number RADIOLOGY RESULTS documented in this encounter Visit Diagnoses Diagnosis Essential hypertension Unspecified essential hypertension documented in this encounter Administered Medications Inactive Administered Medications - up to 3 most recent administrations Medication Order MAR Action Action Date Dose Rate Site hydrochlorothiazide (MICROZIDE) Given 03/04/2017 8:15 PM 12.5 mg capsule 12.5 mg MATERIAL ENGINEER 12.5 mg, Oral, ONCE, On Fri03/04/17 at 1936, For 1 dose documented in this encounter Active and Recently Administered Medications Times are shown in MATERIAL ENGINEER. Scheduled Medication Order 03/02/2017 03/03/2017 03/04/2017 hydrochlorothiazide (MICROZIDE) capsule 12.5 mg (COMPLETED) 2014 (Given - Provider: Carol Holden RN) 12.5 mg, Oral, ONCE, On Fri03/04/17 at 1936, For 1 dose documented in this encounter Care Teams Grease Cup Filler Relationship Specialty Start Date End Date Victor Manuel Olea MD PCP - General 03/04/17 documented as of this encounter
--- OUTSIDE RECORDS SUMMARY | 2022-01-10 09:54 | XMS_ITS | Encounter Summary ---
:1950 Author Organization [place] Address [address] [facility] [address] Care Team Providers Name Role Phone Nelson Almaraz MD Primary Care Provider Encounter Details Date Type Department Care Team Description 03/25/2014 Anesthesia Event [facility] Nelson Lee [place] PeriOP Ser sridhar SANDS [address] [facility] ANESTHESIOLOGIS [place] [address] [phone] [place] [phone] Anesthesia Record Procedure Summary Procedure Name [...] 16 SpO2: 97% 93% 94% Additional Comments: DRAWER HAND Anesthesia Preprocedure Evaluation - Nelson Lee MD [...] benefits and alternatives discussed with: patient or utility sales representative. . History & Physical Review History [...] Reported, Patient Current Facility-Administered Medications Ordered in [facility] Medication Dose Route Frequency Last Rate Last Dose ??? lidocaine BUFFERED 1 % solution 0.1-1 mL 0.1-1 mL Intradermal Once PRN ??? lactated ringers infusion 1,000 mL Intravenous Continuous No current [facility]-ordered outpatient prescriptions on file. Wt Readings from [...] results for input(s): INR in the last 47[address] hours. Invalid input(s): APTT RECENT LABS: ECG: ECHO: CXR: DRAWER HAND documented in this encounter Miscellaneous Notes Anesthesia Care Transfer Note - Nayely Bryson - 03/25/2014 10:53 AM COKE DRAWER HAND Anesthesia Care Transfer Note Patient: Ciro Jasso Transferred to: PACU Patient vital signs: stable Airway: none DRAWER HAND documented in this encounter Plan of Treatment Not on filedocumented as of this encounter Visit Diagnoses Not on filedocumented in this encounter Administered Medications Inactive Administered Medications - up to 3 most recent administrations Medication Order MAR Action Action Date Dose Rate Site fentaNYL (SUBLIMAZE) injection Given 03/25/2014 10:23 AM COKE DRAWER HAND 50 mcg PRN, moderate to severe pain, Starting on Fri03/25/14 at 1023, Anesthesia Intra-op midazolam (VERSED) injection Given 03/25/2014 10:23 AM COKE DRAWER HAND 2 mg PRN, anxiety, Starting on Fri03/25/14 at 1023, Anesthesia Intra-op No antibiotic Given 03/25/2014 10:19 AM COKE DRAWER HAND 1 each PRN, Starting on Fri03/25/14 at 1019, Until Fri03/25/14 at 1054, Anesthesia Intra-op ondansetron (ZOFRAN) injection Given 03/25/2014 10:29 AM COKE DRAWER HAND 4 mg PRN, nausea, vomiting, Administer over 2-5 Minutes, Starting on Fri03/25/14 at 1029, Anesthesia Intra-op propofol (DIPRIVAN) injection 10 mg/mL v ial Given 03/25/2014 10:23 AM COKE DRAWER HAND 30 mg PRN, Starting on Fri03/25/14 at 1023, Anesthesia Intra-op documented in this encounter Care Teams Copy Holder Relationship Specialty Start Date End Date Nelson Almaraz MD PCP - General Family Practice 03/15/14 03/12/[address] [phone] documented as of this encounter
--- OUTSIDE RECORDS SUMMARY | 2022-01-10 09:54 | XMS_ITS | Encounter Summary ---
:[address] [facility] Address [address] [place] [address] Care Team Providers Name Role Phone Unavailable Primary Care Provider Unavailable Reason for Visit Reason Comments Nutrition consult Encounter Details Date Type Department Care Team Description 01/15/[address] [facility] Devorah Barrera RD En counter for other Clinic - [facility] examination Diabetes Education (Primary Dx) [address] [place] [address] Social History Tobacco Use Types Packs/Day Years Used Date Smoking Tobacco: Never Smokeless Tobacco: Never Sex Assigned at Date Recorded Male 12/11/2017 10:53 AM CDT documented as of this encounter Progress Notes Devorah Barrera RD - 01/15/2018 12:30 PM CST Reviewed Health Dynamic results with patient by phone. TAL ACCOUNT SUPERVISOR documented in this encounter Plan of Treatment Not on filedocumented as of this encounter Visit Diagnoses Diagnosis Encounter for other general examination - Primary documented in this encounter
--- OUTSIDE RECORDS SUMMARY | 2022-01-10 09:54 | XMS_ITS | Encounter Summary ---
:1950 Author Organization [place] Address [address] [facility] 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 (Primary [address] PLAST SURG Dx) [place] [address] [phone] [address] [place] [phone] Social History Tobacco Use Types Packs/Day Years Used Date Smoking Tobacco: Never Alcohol Use Standard Drinks/Week Comments Yes 0 (1 standard drink = 0.6 oz pure alcoho l) social Sex Assigned at Date Recorded Not on file documented as of this encounter Last Filed Vital Signs Vital Sign Reading Time Taken Comments Blood Pressure 134/92 03/25/2014 11:22 AM CLERICAL AND OFFICE SUPPORT WORKERS Pulse - - Temperature 36.3 ??C (97.4 ??F) 03/25/2014 9:13 AM CLERICAL AND OFFICE SUPPORT WORKERS Respiratory Rate 16 03/25/2014 11:22 AM CLERICAL AND OFFICE SUPPORT WORKERS Oxygen Saturation 94% 03/25/2014 11:22 AM CLERICAL AND OFFICE SUPPORT WORKERS Inhaled Oxygen Concentration - - Weight 104.3 kg (230 lb) 03/25/2014 9:13 AM CLERICAL AND OFFICE SUPPORT WORKERS Height 175.3 cm (5' 9) 03/25/2014 9:13 AM CLERICAL AND OFFICE SUPPORT WORKERS Body Mass Index 33.97 03/25/2014 9:13 AM CLERICAL AND OFFICE SUPPORT WORKERS documented in this encounter Discharge Instructions Discharge InstructionsMichelle Pretty RN - 03/25/2014 11:05 AM CLERICAL AND OFFICE SUPPORT WORKERS [facility] Discharge Instructions Anesthesia [...] questions of medical nature, call your physician. [facility] Eyelid/Orbital Surgery Discharge Instructions Vivek Allan M.D.. [...] an infection (greenish/yellow discharge or progressive redness). [facility] [place] [address] [address] [place], [place] [address] ICAL AND OFFICE SUPPORT WORKERS documented in this encounter Medications at Time [...] Full-thickness excision, right lower eyelid lesion. SURGEON: Vviek Allan MD ANESTHESIA: Local with monitoring. COMPLICATIONS: [...] #[id number] Name: TRAVIS RATLIFF MRN: [id number] Account: [id number] : 1950 Procedure Date: 03/25/2014 Document: [id number] ICAL AND OFFICE SUPPORT WORKERS Brief Op Note - Vivek Allan MD - 03/25/2014 11:02 AM CST [facility] Brief Operative Note Pre-operative diagnosis: right [...] Allan MD 03/25/2014 10:31 AM Pathology Findings: ICAL AND OFFICE SUPPORT WORKERS documented in this encounter Plan of Treatment Not on filedocumented as of this encounter Procedures Procedure Name Priority Date/Time Associated Diagnosis Comme nts SURGICAL PATHOLOGY Routine 03/25/2014 10:29 AM Re sults for this EXAM CLERICAL AND OFFICE SUPPORT WORKERS procedure are i n the results section. WEDGE RESECTION, 03/25/2014 10:13 AM right lower lid EYELID CLERICAL AND OFFICE SUPPORT WORKERS lesion LAB RESULT - [facility] 03/08/2014 12:00 AM SCAN CLERICAL AND OFFICE SUPPORT WORKERS EKG CARDIAC - [facility] 03/08/2014 12:00 AM SCAN CLERICAL AND OFFICE SUPPORT WORKERS documented in this encounter Results Surgical pathology exam (03/25/2014 10:29 AM CLERICAL AND OFFICE SUPPORT WORKERS) Component Value Ref Test Analysis Performed At [facility] [place] Method Time Signature Copath Report Patient Name: TRAVIS RATLIFF MR#: [id number] Specimen #: [id number] Collected: 03/25/2014 Received: 03/25/2014 Reported: 03/28/2014 14:54 [...] specimen is entirely submitted in one cassette. ??Drawbridge Tender direct, per Dr. Kilpatrick. C.The specimen is received fresh with the patient's name and proper identification labeled right lower lid-medial margin. ??Th e specimen consists of pink rubbery eyelid wedge resection (0.7 x 0.5 x 0.2 cm. The specimen is entirely submitted on one rose for frozen s ection. ??The specimen is entirely submitted in one cassette. ??Drawbridge Tender direct, per Dr. Kilpatrick. (Dictated by: Wilder Manning 03/25/2014 12:31 P M) INTRAOPERATIVE CONSULTATION: Frozen section diagnosis: B. And C.-Negative margins(Dr Nicolasa roach) MICROSCOPIC: A formal microscopic exam is performed. Deeper levels were performed on specimen A. Result discussed with Dr. Allan on 03/28/2014 CPT Codes: A: 21883-AN4 B: 33301-NK0, 10106-MH C: 42977-VL9, 18608-LE TESTING LAB LOCATION: [address] ??[id number] COLLECTION SITE: Client: [facility] Location: [facility] (S) Specimen Anatomical Collection Method Collection Time Receive d Time (Source) Location / / Volume Laterality 03/25/2014 10:29 03/25/2014 AM CLERICAL AND OFFICE SUPPORT WORKERS 10:33 AM CLERICAL AND OFFICE SUPPORT WORKERS Vivek Allan [facility] Performing Organization Address City/State/ZIP Code Phon e Number [facility] LAB RESULT - HIM SCAN (03/08/2014 12:00 AM CLERICAL AND OFFICE SUPPORT WORKERS) Specimen (Source) Anatomical Location Collection Method / Collectio n Time Received Time / Laterality Volume 03/08/2014 Narrative This result has an attachment that is no t available. Provider Outside NON-BEAKER LAB TESTING EKG CARDIAC - HIM SCAN (03/08/2014 12:00 AM CLERICAL AND OFFICE SUPPORT WORKERS) Specimen (Source) Anatomical Location Collection Method / [...] ringers infusion New Bag 03/25/2014 9:21 AM CLERICAL AND OFFICE SUPPORT WORKERS 1,000 mLs 75 mL/hr at 75-100 mL/hr, Intravenous, CONTINUOUS, UNLESS otherwise indicated., Pre-procedure, Starting on Fri03/25/14 at 0900, Until Fri03/25/14 at 1336 lidocaine BUFFERED 1 % solution 0.1-1 mL Given 03/25/2014 9:21 AM CLERICAL AND OFFICE SUPPORT WORKERS 0.5 mLs 0.1-1 mL, Intradermal, ONCE PRN, mild pain with VAD insertion or accessing implanted port., Starting on Fri03/25/14 at 0859, For 1 dose, Do NOT give if patient has a history of allergy to any local anesthetic or any marcia product., Pre-procedure documented in this encounter Active and Recently Administered Medications Times are shown in CLERICAL AND OFFICE SUPPORT WORKERS. Continuous Medication Order 03/23/2014 03/24/2014 03/25/2014 lactated [...] Intra-procedure documented in this encounter Care Teams Data Integrity Consultant Relationship Specialty Start Date End Date Nelson Almaraz MD PCP - General Family Practice 03/15/14 03/12/[address] [phone] documented as of this encounter
--- OUTSIDE RECORDS SUMMARY | 2022-01-10 09:54 | XMS_ITS | Encounter Summary ---
:1950 Author Organization [place] Address [address] [place] [address]. [place] [address] Care Team Providers Name Role Phone Unavailable [...] RESULTS QTc 419 ms RADIOLOGY RESULTS P Metaline 49 degrees RADIOLOGY RESULTS R AXIS -9 degrees RADIOLOGY RESULTS T Metaline 19 degrees RADIOLOGY RESULTS Interpretation AGE AND [...]
--- OUTSIDE RECORDS SUMMARY | 2022-01-10 09:54 | XMS_ITS | Encounter Summary ---
:1950 Author Organization [place] Address [facility] [place] [address] Care Team Providers Name Role Phone Unavailable Primary Care Provider Unavailable Encounter Details Date Type Department Care Team Description 03/31/2007 Historic Results INTERFACED REPORT Humberto Chávez MD ENT SPECIAL[facility] [place] [address] [place], [place] [phone] (Wo rk) Social History Tobacco Use Types Packs/Day Years Used Date Smoking Tobacco: Never Assessed Sex Assigned at Date Recorded Not on file documented as of this encounter Plan of Treatment Not on filedocumented as of this encounter Procedures Procedure Name Priority Date/Time Associated Comments Diagnosis HEMOGRAM DIFFERENTIAL Routine 03/31/2007 6:35 AM Results for this AND PLATELET ASSEMBLY PRESS OPERATOR procedure are i n the results section. documented in this encounter Results (ABNORMAL) Hemogram differential and platelet (03/31/2007 6:35 AM ASSEMBLY PRESS OPERATOR) [facility] Method Time Signature MCV 90 78 [...] / Volume Laterality 03/31/2007 6:35 AM 8 ASSEMBLY PRESS OPERATOR Humberto Chávez MD LAB - BLOOD ORDERABLES Performing Organization Address City/State/ZIP Code Phon e Number [facility] documented in this encounter Visit Diagnoses Not on filedocumented in this encounter
--- OUTSIDE RECORDS SUMMARY | 2022-01-10 09:54 | XMS_ITS | Encounter Summary ---
:1950 Author Organization [place] Address [facility] [place] [address] Care Team Providers Name Role Phone Unavailable Primary Care Provider Unavailable Encounter Details Date Type Department Care Team Description 07/17/2005 Historic Results INTERFACED REPORT Kostas Moreno MD [address] [place] [address] Social History Tobacco Use Types [...] differential and platelet (07/17/2005 5:30 AM CDT) [facility] Method Time Signature MCV 90 78 - [...] LAB - BLOOD ORDERABLES Performing Organization Address City/[facility] Phon e Number [facility] Erythrocyte sedimentation rate auto (07/17/2005 5:30 AM CDT) athologist Signature Sed Rate 6 0 - 20 mm/h [facility] Specimen Anatomical Collection Method Collection Time Receive d Time (Source) Location / / Volume Laterality 07/17/2005 5:30 AM 6 4:57 CDT AM CDT Kostas Moreno MD LAB - BLOOD ORDERABLES Performing Organization Address [facility] Phon e Number MIS[facility] (ABNORMAL) Basic metabolic [...]
--- OUTSIDE RECORDS SUMMARY | 2022-01-10 09:54 | XMS_ITS | Clinical Summary ---
:1950 Author Organization [facility] Address [address] [place] [address] Care Team Providers Name Role Phone Unavailable [...] ss Type Group [employer] CC [id number] 2017-Janneth [phone] [address] [place] [address] [address] [place] [address]
--- OUTSIDE RECORDS SUMMARY | 2022-01-10 09:54 | XMS_ITS | Encounter Summary ---
:1950 Author Organization [place] Address [address] [place] [address] Care Team Providers Name Role Phone Unavailable Primary Care Provider Unavailable Encounter Details Date Type Department Care Team Description 03/31/2007 Results Only [facility] Erin Chávez MD [facility] Results ENT SPECIALTY C [place] OF [place] [address] [place], [place] [address] (Wo rk) Social History Tobacco Use Types Packs/Day Years Used Date Smoking Tobacco: Never Assessed Sex Assigned at Date Recorded Not on file documented as of this encounter Plan of Treatment Not on filedocumented as of this encounter Procedures Procedure Name Priority Date/Time Associated Diagnosis [facility] CT SOFT TISSUE Routine 03/31/2007 11:12 AM Res ults for this NECK W/O CONTRAST SUPERVISOR SHEARING procedure are in the results section. documented in this encounter Results CT SCAN NECK TISSUE (03/31/2007 11:12 AM SUPERVISOR SHEARING) Anatomical Region Laterality Modality Other Specimen (Source) Anatomical Collection Method Collection Time Re ceived Time Location / / Volume Laterality 03/31/2007 11:12 AM SUPERVISOR SHEARING Impressions 03/31/2007 4:[address] NECK WITH CONTRAST - March 31 [...]
--- OUTSIDE RECORDS SUMMARY | 2022-01-10 09:54 | XMS_ITS | Encounter Summary ---
:1950 Author Organization [place] Address [address] [place] [place] [address] Care Team Providers Name Role Phone Unavailable Primary Care Provider Unavailable Encounter Details Date Type Department Care Team Description 04/02/2007 Historic Results INTERFACED REPORT Humberto Chávez MD ENT SPECIALTY CA RE OF [place] [address] [place], [place] [address] (Wo rk) Social History Tobacco Use Types Packs/Day Years Used Date Smoking Tobacco: Never Assessed Sex Assigned at Date Recorded Not on file documented as of this encounter Plan of Treatment Not on filedocumented as of this encounter Procedures Procedure Name Priority Date/Time Associated Comments Diagnosis GRAM STAIN Routine 04/02/2007 3:45 PM Results f or this SOCIAL WORK MANAGER procedure are i n the results section. FUNGUS CULTURE Routine 04/02/2007 3:45 PM Results for this SOCIAL WORK MANAGER procedure are i n the results section. ANAEROBIC BACTERIAL Routine 04/02/2007 3:45 PM Re sults for this CULTURE ROUTINE SOCIAL WORK MANAGER procedure ar e in the results section. AFB STAIN NON BLOOD Routine 04/02/2007 3:45 PM Re sults for this SOCIAL WORK MANAGER procedure are i n the results section. AFB CULTURE AND STAIN Routine 04/02/2007 3:45 PM Results for this NON BLOOD SOCIAL WORK MANAGER procedure are i n the results section. ABSCESS CULTURE Routine 04/02/2007 3:45 PM Result s for this AEROBIC BACTERIAL SOCIAL WORK MANAGER procedure are in the results section. HEMOGRAM DIFFERENTIAL Routine 04/02/2007 11:20 Re sults for this AND PLATELET AM SOCIAL WORK MANAGER procedure are i n the results section. BASIC METABOLIC PANEL Routine 04/02/2007 11:20 Re sults for this AM SOCIAL WORK MANAGER procedure are i n the results section. documented in this encounter Results Abscess Culture (04/02/2007 3:45 PM SOCIAL WORK MANAGER) Component Value Ref Test Analysis Performed At [facility] Method Time Signature Specimen Aspirate LFT NECK MISYS Description MASS Culture Micro Light growth Beta MISYS hemolytic Streptococcus group A Susceptibility testing not Comment: routinely done Critical Value called to and read back abeba Holloway at [facility] [phone] 04/07/07@11:12 by ru Micro Report Status FINAL 04/08/2007 MIS YS Specimen Anatomical Collection Method Collection Time Receive d Time (Source) Location / / Volume Laterality 04/02/2007 3:45 PM 8 4:11 SOCIAL WORK MANAGER PM SOCIAL WORK MANAGER Humberto Chávez MD LAB - MICRO GENERAL ORDERABL ES Performing Organization Address City/[facility] Phon e Number MISYS AFB culture (04/02/2007 3:45 PM SOCIAL WORK MANAGER) [facility] Method Time Signature Specimen Aspirate LFT MISYS Description NECK MASS Culture Micro No Acid fast MISYS bacilli isolated after 7 weeks incubation Comment: Assayed at [id number] [address] Micro Report Status FINAL 06/01/2007 MIS YS Specimen Anatomical Collection Method Collection Time Receive d Time (Source) Location / / Volume Laterality 04/02/2007 3:45 PM 8 4:11 SOCIAL WORK MANAGER PM SOCIAL WORK MANAGER Humberto Chávez MD LAB - MICRO GENERAL ORDERABL ES Performing Organization Address City/[facility]/ZIP Code Phon e Number MISYS Anaerobic bacterial culture (04/02/2007 3:45 PM SOCIAL WORK MANAGER) [facility] Method Time Signature Specimen Aspirate LFT MISYS Description NECK MASS Culture Micro No anaerobes MISYS isolated Micro Report FINAL MISYS Status 04/09/2007 Specimen Anatomical Collection Method Collection Time Receive d Time (Source) Location / / Volume Laterality 04/02/2007 3:45 PM 8 4:11 SOCIAL WORK MANAGER PM SOCIAL WORK MANAGER Humberto Chávez MD LAB - MICRO GENERAL ORDERABL ES Performing Organization Address City/[facility]/ZIP Code Phon e Number MISYS Fungus Culture, non-blood (04/02/2007 3:45 PM SOCIAL WORK MANAGER) [facility] Method Time Signature Specimen Aspirate LFT MISYS Description NECK MASS Culture Micro Culture MISYS negative after 4 weeks Micro Report FINAL MISYS Status [id number] Specimen Anatomical Collection Method Collection Time Receive d Time (Source) Location / / Volume Laterality 04/02/2007 3:45 PM 8 4:11 SOCIAL WORK MANAGER PM SOCIAL WORK MANAGER Humberto Chávez MD LAB - MICRO GENERAL ORDERABL ES Performing Organization Address [facility] Code Phon e Number MISYS Gram stain (04/02/2007 3:45 PM SOCIAL WORK MANAGER) [facility] Method Time Signature Specimen [...] Volume Laterality 04/02/2007 3:45 PM 8 4:11 SOCIAL WORK MANAGER PM SOCIAL WORK MANAGER Humberto Chávez MD LAB - MICRO GENERAL ORDERABL ES Performing Organization Address [facility] Phon e Number MISYS AFB stain (04/02/2007 3:45 PM SOCIAL WORK MANAGER) [facility] Method Time Signature Specimen [...] Volume Laterality 04/02/2007 3:45 PM 8 6:41 SOCIAL WORK MANAGER PM SOCIAL WORK MANAGER Humberto Chávez MD LAB - MICRO GENERAL ORDERABL ES Performing Organization Address City/[facility]/ZIP Code Phon e Number MISYS (ABNORMAL) Hemogram differential and platelet (04/02/2007 11:20 AM SOCIAL WORK MANAGER) [facility] Method Time Signature MCV [...] Volume Laterality 04/02/2007 11:20 04/02/2007 9:07 AM SOCIAL WORK MANAGER AM SOCIAL WORK MANAGER Nikos Sanchez MD LAB - BLOOD ORDERABLES Performing Organization Address City/State/ZIP Code Phon e Number MISYS (ABNORMAL) Basic metabolic panel (04/02/2007 11:20 AM SOCIAL WORK MANAGER) P athologist Signature Sodium 144 133 - [...] Volume Laterality 04/02/2007 11:20 04/02/2007 9:08 AM SOCIAL WORK MANAGER AM SOCIAL WORK MANAGER Nikos Sanchez MD LAB - BLOOD ORDERABLES Performing Organization Address City/State/ZIP Code Phon e Number MISYS documented in this encounter Visit Diagnoses Not on filedocumented in this encounter
--- OUTSIDE RECORDS SUMMARY | 2022-01-10 09:54 | XMS_ITS | Encounter Summary ---
:1950 Author Organization [place] Address [address] [place] [address] Care Team Providers Name Role Phone Unavailable Primary Care Provider Unavailable Encounter Details Date Type Department Care Team Description 07/17/2005 Results Only [facility] Kostas Moreno MD Hospital Results [address] [place] [address] Social History Tobacco Use Types [...]
--- OUTSIDE RECORDS SUMMARY | 2022-01-10 09:54 | XMS_ITS | Encounter Summary ---
:1950 Author Organization [place] Address [address] [facility] [place] [address] Care Team Providers Name Role Phone Unavailable Primary Care Provider Unavailable Encounter Details Date Type Department Care Team Description 03/30/2007 Admission H&P Humberto Chávez MD (Video Engineer) ENT SPECIALTY [place] [address] [place], [place] [address] (Wo rk) Social History Tobacco Use Types [...] MD MT: [id number] Name: TRAVIS RATLIFF Account: [id number] : 1950 Admitted: [id number] Document: [id number] cc: Nelson Almaraz MD documented in this encounter Plan of Treatment Not on filedocumented as of this encounter Visit Diagnoses Not on filedocumented in this encounter
--- OUTSIDE RECORDS SUMMARY | 2022-01-10 09:54 | XMS_ITS | Encounter Summary ---
:1950 Author Organization [facility] Address [address] [place] [address] Care Team Providers Name Role Phone Unavailable Primary Care Provider Unavailable Reason for Referral (Routine) - Closed Specialty Diagnoses / Procedures Referred By Contact Refer red To Contact Diagnoses Physical exam Veronica Francis PA-C Procedures IRON, SERUM [address] [place] [address] Referral ID Status Reason Start Date Expiration Date Visits Requ ested Visits Authorized [id number] Closed 12/11/2017 12/11/2018 1 1 Reason for Visit Reason Comments Physical HD Encounter Details Date Type Department Care Team Description 12/11/2017 Office Visit [facility] Veronica Francis Phy sical exam (Primary Clinic - [place] PA-C Dx) [address] [facility] [address] [place] [address] [place] [phone] Social History Tobacco Use Types Packs/Day Years [...] ?? NMBN ?Room: ? Gender: ? M ?Cable Tool Operator: ?? [id number] : ?1950 ? Requested By: VERONICA FRANCIS MD Order Number: [id number] ?Reading MD: ?? Veronica Francis PA ? Measurements Intervals ?[place] ? Rate: ? 59 ? P: ?12 MO: ? 187 ?QRS: ?-15 QRSD: ? 118 [...] Code Phon e Number [facility] [address] [place] [address] PSA SCREEN OP (12/11/2017 10:21 AM CDT) P athologist Signature PSA OP 0.21 <=4.00 12/11/2017 [facility] ng/mL 2:34 PM CDT [facility] Specimen Anatomical Collection Method / Collection Time Recei catalina Time (Source) Location / Volume Laterality Blood Venipuncture / 12/11/2017 10:21 8 Unknown AM CDT 10:21 AM CDT Narrative [facility] - 12/11/2017 2:34 PM CDT Testing is performed by EIA (Enzyme Immu noassay) based on the sandwich principle. ??Values obtained with different assay m ethods cannot be used interchangeably. Veronica Francis PA-C CHEMISTRY ORDERABLE Performing Organization Address City/State/ZIP Code Phon e Number [facility] - [address] [facility] [place] [address] [facility] - [address] [address] [facility] [place] [address] [facility] IRON, SERUM (12/11/2017 10:21 AM CDT) P athologist Signature IRON 130 50 - 175 12/11/2017 [facility] ug/dL 5:13 PM CD [facility] Specimen Anatomical Collection Method / Collection Time Recei catalina Time (Source) Location / Volume Laterality Blood Venipuncture / 12/11/2017 10:21 8 Unknown AM CDT 10:21 AM CDT Veronica Francis PA-C CHEMISTRY ORDERABLE Performing Organization Address City/State/ZIP Code Phon e Number [facility] [address] [place] [address] LABORATORY (ABNORMAL) CBC/DIFFERENTIAL OP (12/11/2017 10:21 AM CDT) Analysis Performed At Patho logist Time Signature WBC OP 9.0 4.3 - 10.8 12/11/2017 [place] K/UL 11:[address] [facility] RBC OP 4.85 4.60 - 12/11/2017 [place] 6.20 M/UL 11:[address] [facility] HEMOGLOBIN OP 15.4 14.0 - 12/11/2017 [place] 18.0 gm/dL 11:[address] [facility] HEMATOCRIT OP 43.4 40.0 - 12/11/2017 [place] 54.0 % 11:[address] [facility] MCV OP 90 80 - 100 12/11/2017 [place] fl 11:[address] [facility] MCH OP 31.8 27.0 - 12/11/2017 [place] 33.0 pg 11:[address] [facility] MCHC OP 35.5 33.0 - 12/11/2017 [place] 36.0 gm/dL 11:[address] [facility] RDW OP 12.8 11.5 - 12/11/2017 [place] 14.5 % 11:[address] [facility] PLATELET COUNT 253 150 - 400 12/11/2017 [place] OP K/UL 11:[address] [facility] MPV OP 9.9 6.5 - 12.0 12/11/2017 [place] 11:08 [facility] PMN % OP 52.4 % 12/11/2017 [place] 11:08 AM [facility] LYMPHOCYTE % OP 29.2 % 12/11/2017 [place] 11:08 AM [facility] MONOCYTE % OP 13.2 % 12/11/2017 [place] 11:08 AM [facility] EOSINOPHIL % OP 4.8 % 12/11/2017 [place] 11:08 AM [facility] BASOPHIL % OP 0.4 % 12/11/2017 [place] 11:08 AM [facility] PMN ABSOLUTE OP 4.69 1.80 - 12/11/2017 [place] 7.80 K/uL 11:08 AM [facility] LYMPHOCYTE 2.62 1.00 - 12/11/2017 [place] ABSOLUTE OP 4.00 K/uL 11:08 AM [facility] MONOCYTE 1.18 (H) 0.00 - 12/11/2017 [place] ABSOLUTE OP 1.00 K/uL 11:08 AM [facility] EOSINOPHIL 0.43 0.00 - 12/11/2017 [place] ABSOLUTE OP 0.45 K/uL 11:08 AM [facility] BASOPHIL 0.04 0.00 - 12/11/2017 [place] ABSOLUTE OP 0.20 K/uL 11:08 AM [facility] Specimen Anatomical Collection Method / Collection Time Recei catalina Time (Source) Location / Volume Laterality Blood Venipuncture / 12/11/2017 10:21 8 Unknown AM CDT 10:21 AM CDT Veronica Francis PA-C HEMATOLOGY ORDERABLE Performing Organization Address City/State/ZIP Code Phon e Number [facility] - [address] [place] [address] [facility] - [address] [place] [address] [facility] HD URINALYSIS OP (12/11/2017 10:21 AM CDT) Patholo gist Method Time Signature UA PH OP 6.5 5.0, 5.5, 12/11/2017 [place] 6.0, 6.5, 11:08 AM [facility] 7.0, 7.5, 8.0 [facility] - [facility] UA SPECIFIC 1.020 1.015, 1.020, 12/11/2017 [facility] GRAVITY OP 1.025 11:[address] [facility] - [facility] UA PROTEIN OP Negative Negative 12/11/2017 [place] mg/dL 11:[address] [facility] - [facility] UA GLUCOSE OP Negative Negative 12/11/2017 [place] mg/dL 11:[address] [facility] - [facility] UA KETONES OP Negative Negative 12/11/2017 [place] mg/dL 11:[address] [facility] - [facility] UA BILIRUBIN OP Negative Negative 12/11/2017 [facility] 11:[address] [facility] - [facility] UA BLOOD OP Negative Negative, 12/11/2017 [facility] Trace 11:08 AM [facility] - [facility] UA UROBILINOGEN 0.2 0.2, 1.0 12/11/2017 [place] OP EU/dL 11:08 AM [facility] - [facility] UA LEUKOCYTE Negative Negative, 12/11/2017 [place] ESTERASE OP Trace 11:[address] [facility] - [facility] UA NITRITE OP Negative Negative 12/11/2017 [place] 11:08 AM [facility] - [facility] RBC UA OP None Seen None Seen, 12/11/2017 [place] Occasional 11:08 AM [facility] /[facility] WBC UA OP None Seen None Seen, 12/11/2017 [place] Occasional, 11:08 AM [facility] 1-4 [facility] Specimen Anatomical Collection Method Collection Time Receive d Time (Source) Location / / Volume Laterality Urine 12/11/2017 10:21 12/11/2017 AM CDT 10:21 AM CDT Veronica Francis PA-C URINE ORDERABLE Performing Organization Address City/State/ZIP Code Phon e Number [facility] - [address] [place] [address] [facility] - [address] [place] [address] [facility] (ABNORMAL) HD CHEMISTRY PANEL OP (12/11/2017 10:21 AM CDT) [facility] Method Time Signature GLUCOSE OP 118 (H) 70 - 110 12/11/2017 [facility] mg/dL 2:[address] [facility] BUN (UREA NITRO) 25 (H) 7 - 18 12/11/2017 [place] OP mg/dL 2:[address] [facility] CREATININE OP 1.40 (H) 0.80 - 12/11/2017 [facility] 1.30 2:34 PM T [facility] mg/dL [facility] EST GFR (CKD-EPI) 51 (L) >60 12/11/2017 [place] OP mL/min 2:34 PM T [facility] GFR IF >60 >60 12/11/2017 [place] AM OP mL/min 2:[address] [facility] SODIUM OP 141 136 - 145 12/11/2017 [place] mmol/L 2:[address] [facility] POTASSIUM OP 3.5 3.5 - 5.1 12/11/2017 [place] mmol/L 2:[address] [facility] CHLORIDE OP 100 98 - 107 12/11/2017 [place] mmol/L 2:34 PM [facility] CARBON DIOXIDE OP 30 21 - 32 12/11/2017 [place] mmol/L 2:34 PM [facility] ANION GAP OP 11.0 0.0 - 12/11/2017 [facility] 15.0 2:34 PM [facility] mmol/L [facility] PROTEIN TOTAL OP 8.5 (H) 6.4 - 8.2 12/11/2017 [facility] g/dL 2:[address] [facility] ALBUMIN OP 4.3 3.4 - 5.0 12/11/2017 [facility] g/dL 2:34 PM [facility] CALCIUM, SERUM OP 9.1 8.5 - 12/11/2017 [facility] 10.1 2:34 PM [facility] mg/dL [facility] PHOSPHORUS OP 3.8 2.5 - 4.9 12/11/2017 [place] mg/dL 2:[address] [facility] URIC ACID OP 11.2 (H) 2.6 - 7.2 12/11/2017 [facility] mg/dL 2:34 PM [facility] ALKALINE P'TASE 80 45 - 117 12/11/2017 [facility] OP IU/L 2:34 PM [facility] ALT (SGPT) OP 99 (H) 12 - 68 12/11/2017 [facility] IU/L 2:34 PM [facility] AST (SGOT) OP 101 (H) 15 - 37 12/11/2017 [facility] IU/L 2:34 PM [facility] BILIRUBIN-TOTAL 0.8 0.2 - 1.0 12/11/2017 [facility] OP mg/dL 2:34 PM [facility] BILIRUBIN-DIRECT 0.17 <=0.20 12/11/2017 [facility] OP mg/dL 2:34 PM [facility] GGTP (GAMMA-GTP) 39 15 - 85 12/11/2017 [place] OP IU/L 2:34 PM [facility] LDH TOTAL OP 237 (H) 85 - 227 12/11/2017 [place] IU/L 2:34 PM [facility] TRIGLYCERIDES 154 (H) <150 12/11/2017 [place] PROFILE OP mg/dL 2:34 PM [facility] CHOLESTEROL OP 160 <=200 12/11/2017 [facility] mg/dL 2:34 PM [facility] HDL CHOLESTEROL 36 (L) >=40 12/11/2017 [place] OP mg/dL 2:34 PM [facility] LDL CHOL, CALC OP 93 <100 12/11/2017 [facility] mg/dL 2:34 PM [facility] CHOL/HDL RATIO OP 4.4 0.0 - 4.9 12/11/2017 [facility] 2:34 PM [facility] SPECIMEN TYPE 12/11/2017 [facility] 2:34 PM [facility] BUN/Creatinine 17.9 mg/dL 12/11/2017 [facility] Ratio OP 2:34 PM [facility] Globulin OP 4.2 g/dL 12/11/2017 [facility] 2:34 PM [facility] A/G Ratio OP 1.0 g/dL 12/11/2017 [place] 2:34 PM CD[facility] Specimen Anatomical Collection Method / Collection Time Recei catalina Time (Source) Location / Volume Laterality Blood Venipuncture / 12/11/2017 10:21 8 Unknown AM CDT 10:21 AM CDT Narrative [facility] [place] - 12/11/2017 2:34 PM CDT LDL CHOLESTEROL REFERENCE RANGES: (FOR PATIENTS W/O HEART DISEASE) <100 mg/dL = Optimal 100-129 mg/dL = Near/Above Optimal 130-159 mg/dL = Borderline High 160-189 mg/dL = High >/= 190 mg/dL = Very High Veronica Francis PA-C CHEMISTRY ORDERABLE Performing Organization Address City/State/ZIP Code Phon e Number [facility] - [address] [place] [address] [address] [place] [facility] - [address] [place] [address] [place] documented in this encounter Visit Diagnoses Diagnosis Physical exam - Primary documented in this encounter
--- OUTSIDE RECORDS SUMMARY | 2022-01-10 09:54 | XMS_ITS | Encounter Summary ---
:1950 Author Organization [place] Address [facility] [address] Care Team Providers Name Role Phone Unavailable Primary Care Provider Unavailable Encounter Details Date Type Department Care Team Description 03/30/2007 Historic Notes INTERFACED REPORT Interface, Transcript MD jasmine Social History Tobacco Use Types Packs/Day Years Used Date Smoking Tobacco: Never Assessed Sex Assigned at Date Recorded Not on file documented as of this encounter Progress Notes Interface, Mig Tig Welder - 04/30/2010 3:04 AM CDT General Information General Information - <R> How to be addressed liudmila - <R> Campus Security Officer Needed No - Temporary living arrangements None required Patient Contact Information - <R> yard goods salesperson to notify: Dionna Faria - <R> Phone 1: [phone] - Phone 2: [phone] Advance Directive Advanced Health Care Directive Information [...] pastoral Does not wish to have anyone care/clergy/sales advisor contacted notified? Mutuality/Individual Preferences Mutuality/Preferences - <R> What information would help will let us know us give you more personalized care? - <R> What if any limitations on None visitors, TV or phone calls would you like Signatures Bessy Alvarez (RN)[Signed 17:03] Authored: General Information, Allergies, Activity-Exercise/Self Care, Role Relationships VAL CORONADO (MICROBIOLOGY INSTRUCTOR)[Signed 15:32] Authored: General Information, Advance Directive, Valuables, Health and Illness History, Substance Use, Transfusion History, Review of Systems, Cognitive Perceptual, Activity-Exercise/Self Care, Nutrition/Metabolic, Sleep/Relaxation, Coping-Stress Tolerance, Values/Beliefs/Spiritual Care, Mutuality/Individual Preferences documented in this encounter Plan of Treatment Not on filedocumented as of this encounter Visit Diagnoses Not on filedocumented in this encounter
--- OUTSIDE RECORDS SUMMARY | 2022-01-10 09:54 | XMS_ITS | Encounter Summary ---
:1950 Author Organization [place] Address [address] [place] [address] Care Team Providers Name Role Phone Nelson Almaraz MD Primary Care Provider Encounter Details Date Type Department Care Team Description 03/25/2014 Surgery [facility] Vivek Allan R IGHT LOWER LID WEDGE [place] PeriOP MD EXCISION WITH FROZEN Services MA OPHTHALMIC PLAST SECTIONS [address] [place] [address] [address] [place] [address] (Wo rk) Surgery Details Date/Time Status Location OR Service Patient Case Case Traum a Class Class Type Case? 03/25/14 10:00 Posted [place] [address] [facility] AM Panel 1 Procedure [...] Comments Blood Pressure 134/92 03/25/2014 11:22 AM SCHEDULE ANNOUNCER Pulse - - Temperature 36.3 ??C (97.4 ??F) 03/25/2014 9:13 AM SCHEDULE ANNOUNCER Respiratory Rate 16 03/25/2014 11:22 AM SCHEDULE ANNOUNCER Oxygen Saturation 94% 03/25/2014 11:22 AM SCHEDULE ANNOUNCER Inhaled Oxygen Concentration - - Weight 104.3 kg (230 lb) 03/25/2014 9:13 AM SCHEDULE ANNOUNCER Height 175.3 cm (5' 9) 03/25/2014 9:13 AM SCHEDULE ANNOUNCER Body Mass Index 33.97 03/25/2014 9:13 AM SCHEDULE ANNOUNCER documented in this encounter Discharge Instructions Discharge InstructionsMichelle Pretty RN - 03/25/2014 11:05 AM SCHEDULE ANNOUNCER [facility] Discharge Instructions [...] of medical nature, call your physician. [facility] Eyelid/Orbital Surgery Discharge Instructions Vivek [...] an infection (greenish/yellow discharge or progressive redness). [facility] [place] [address] [place], [place] [address] DULE ANNOUNCER documented in this encounter Medications at Time [...] MD MT: [id number] Name: TRAVIS RATLIFF Account: [id number] : 1950 Procedure Date: 03/25/2014 Document: [id number] DULE ANNOUNCER Brief Op Note - Vivek Allan MD - 03/25/2014 11:02 AM CST [facility] Brief Operative Note Pre-operative diagnosis: right [...] Allan MD 03/25/2014 10:31 AM Pathology Findings: DULE ANNOUNCER documented in this encounter Plan of Treatment Not on filedocumented as of this encounter Procedures Procedure Name Priority Date/Time Associated Diagnosis Comme nts SURGICAL PATHOLOGY Routine 03/25/2014 10:29 AM Re sults for this EXAM SCHEDULE ANNOUNCER procedure are i n the results section. WEDGE RESECTION, 03/25/2014 10:13 AM right lower lid EYELID SCHEDULE ANNOUNCER lesion LAB RESULT - [facility] 03/08/2014 12:00 AM SCAN SCHEDULE ANNOUNCER EKG CARDIAC - [facility] 03/08/2014 12:00 AM SCAN SCHEDULE ANNOUNCER documented in this encounter Results Surgical pathology exam (03/25/2014 10:29 AM SCHEDULE ANNOUNCER) Component Value Ref Test Analysis Performed At [facility] Range Method Time Signature Copath Report Patient Name: TRAVIS RATLIFF MR#: [id number] Specimen #: [id number] Collected: 03/25/2014 Received: 03/25/2014 Reported: 03/28/2014 14:54 [...] specimen is entirely submitted in one cassette. ??Neurology Technologist direct, per Dr. Kilpatrick. C.The specimen is received fresh with the patient's name and proper identification labeled right lower lid-medial margin. ??Th e specimen consists of pink rubbery eyelid wedge resection (0.7 x 0.5 x 0.2 cm. The specimen is entirely submitted on one rose for frozen s ection. ??The specimen is entirely submitted in one cassette. ??Neurology Technologist direct, per Dr. Kilpatrick. (Dictated by: Wilder Manning 03/25/2014 12:31 P M) INTRAOPERATIVE CONSULTATION: Frozen section diagnosis: B. And C.-Negative margins(Dr Nicolasa roach) MICROSCOPIC: A formal microscopic exam is performed. Deeper levels were performed on specimen A. Result discussed with Dr. Allan on 03/28/2014 CPT Codes: A: 85029-DC7 B: 70155-MC2, 61654-FQ C: 91310-OK1, 32121-OG TESTING LAB LOCATION: [address] ??[address] COLLECTION SITE: Client: [facility] Location: [facility] (S) Specimen Anatomical Collection Method Collection Time Receive d Time (Source) Location / / Volume Laterality 03/25/2014 10:29 03/25/2014 AM SCHEDULE ANNOUNCER 10:33 AM SCHEDULE ANNOUNCER Vivek Allan MD LAB - [facility] AP Performing Organization Address City/State/ZIP Code Phon e Number [facility] LAB RESULT - HIM SCAN (03/08/2014 12:00 AM SCHEDULE ANNOUNCER) Specimen (Source) Anatomical Location Collection Method / Collectio n Time Received Time / Laterality Volume 03/08/2014 Narrative This result has an attachment that is no t available. Provider Outside NON-BEAKER LAB TESTING EKG CARDIAC - [facility]AN (03/08/2014 12:00 AM SCHEDULE ANNOUNCER) Specimen (Source) Anatomical Location Collection Method / [...] Site erythromycin (ROMYCIN) Given 03/25/2014 10:36 AM SCHEDULE ANNOUNCER 1 g Both Eyes ophthalmic ointment PRN, Starting on Fri03/25/14 at 1036, Intra-procedure lactated ringers infusion New Bag 03/25/2014 9:21 AM SCHEDULE ANNOUNCER 1,000 mLs 75 mL/hr at 75-100 mL/hr, Intravenous, CONTINUOUS, UNLESS otherwise indicated., Pre-procedure, Starting on Fri03/25/14 at 0900, Until Fri03/25/14 at 1336 lidocaine 2%-EPINEPHrine Given 03/25/2014 10:36 AM 4 mLs Operative Site/Surgical 1:200,000 injection SCHEDULE ANNOUNCER Site PRN, Starting on Fri03/25/14 at 1036, Intra-procedure lidocaine BUFFERED 1 % solution 0.1-1 mL Given 03/25/2014 9:21 AM SCHEDULE ANNOUNCER 0.5 mLs 0.1-1 mL, Intradermal, ONCE PRN, mild pain with VAD insertion or accessing implanted port., Starting on Fri03/25/14 at 0859, For 1 dose, Do NOT give if patient has a history of allergy to any local anesthetic or any marcia product., Pre-procedure tetracaine (PONTOCAINE) 0.5 % Given 03/25/2014 10:36 AM SCHEDULE ANNOUNCER 2 dr ops Eye Right ophthalmic solution PRN, Starting on Fri03/25/14 at 1036, Intra-procedure documented in this encounter Active and Recently Administered Medications Times are shown in SCHEDULE ANNOUNCER. Continuous Medication Order 03/23/2014 03/24/2014 03/25/2014 lactated [...] Intra-procedure documented in this encounter Care Teams Intelligence Applications Relationship Specialty Start Date End Date Nelson Almaraz MD PCP - General Family Practice 03/15/14 03/12/16 [facility] [address] [place] [phone] documented as of this encounter
--- OUTSIDE RECORDS SUMMARY | 2022-01-10 09:54 | XMS_ITS | Encounter Summary ---
:1950 Author Organization [place] Address [facility] [place] [address] Care Team Providers Name Role Phone Unavailable Primary Care Provider Unavailable Encounter Details Date Type Department Care Team Description 03/30/2007 Historic Results INTERFACED REPORT Humberto Chávez MD ENT SPECIALTY [place] OF [place] [address] [place], [place] [address] (Wo rk) Social History Tobacco Use Types Packs/Day Years Used Date Smoking Tobacco: Never Assessed Sex Assigned at Date Recorded Not on file documented as of this encounter Plan of Treatment Not on filedocumented as of this encounter Procedures Procedure Name Priority Date/Time Associated Comments Diagnosis HEMOGRAM DIFFERENTIAL Timed 03/30/2007 5:50 PM Results for this AND PLATELET MULTIFOCAL LENS INSPECTOR procedure are i n the results section. documented in this encounter Results (ABNORMAL) Hemogram differential and platelet (03/30/2007 5:50 PM MULTIFOCAL LENS INSPECTOR) [facility] Method Time Signature MCV 88 78 - [...] Volume Laterality 03/30/2007 5:50 PM 8 3:50 MULTIFOCAL LENS INSPECTOR PM MULTIFOCAL LENS INSPECTOR Humberto Chávez MD LAB - BLOOD ORDERABLES Performing Organization Address City/State/ZIP Code Phon e Number MISYS documented in this encounter Visit Diagnoses Not on filedocumented in this encounter
--- OUTSIDE RECORDS SUMMARY | 2022-01-10 09:54 | XMS_ITS | Encounter Summary ---
:1950 Author Organization [place] Address [address] [place] [address] Care Team Providers Name Role Phone Unavailable Primary Care Provider Unavailable Encounter Details Date Type Department Care Team Description 04/02/[address] [facility] Bebeto Sanchez MD [facility] Results ENT SPECIALTY C ARE OF [place] [address] [facility] [address] [place], [place] [address] (Wo rk) Social History Tobacco Use Types Packs/Day Years Used Date Smoking Tobacco: Never Assessed Sex Assigned at Date Recorded Not on file documented as of this encounter Plan of Treatment Not on filedocumented as of this encounter Procedures Procedure Name Priority Date/Time Associated Diagnosis Comme Merged with [facility] US GUIDE FOR Routine 04/02/2007 4:14 PM Result s for this NEEDLE PLACEMENT OB GYN PHYSICIAN ASSISTANT procedure a re in the results section. documented in this encounter Results SONO GUIDE NEEDLE BIOPSY (04/02/2007 4:14 PM OB GYN PHYSICIAN ASSISTANT) Anatomical Region Laterality Modality Other Specimen (Source) Anatomical Collection Method Collection Time Re ceived Time Location / / Volume Laterality 04/02/2007 4:14 PM OB GYN PHYSICIAN ASSISTANT Impressions 04/03/2007 7:31 AM OB GYN PHYSICIAN ASSISTANT ULTRASOUND-GUIDED ABSCESS DRAINAGE Mar 142007 at 4:14 [...]
--- OUTSIDE RECORDS SUMMARY | 2022-01-10 09:54 | XMS_ITS | Encounter Summary ---
:1950 Author Organization [place] Address [address] [facility] [place] [place] [address] Care Team Providers Name Role Phone Unavailable Primary Care Provider Unavailable Encounter Details Date Type Department Care Team Description 04/02/2007 Historic Notes INTERFACED REPORT Interface, Transcript onMD Social History Tobacco Use Types Packs/Day Years Used Date Smoking Tobacco: Never Assessed Sex Assigned at Date Recorded Not on file documented as of this encounter Progress Notes Interface, Public Relations Professional - 04/30/2010 2:54 AM CDT SH - Routine visit of Pt. Pt. was sitting up in bed watching TV and reading. Pt. said he was hopeful that he would be going home today or tomorrow. Pt. said he thought the care at the hospital was great, but wanted to get home. Pt. mentioned thankfulness that his gas processing plant operator had visited him yesterday. Pt. expressed no needs. Oil Well Driller offered emotional/spiritual support through active listening. [Signature] Author:LISSA JAVIER (Oil Well Driller Sales Representatives) [Signed 10:45] Interface, Public Relations Professional - 04/30/2010 2:54 AM CDT Care Mgt Team:CC D: Spoke with [facility] to verify benefits. PT has 80% coverage after a $200 out of pocket co pay and a 20% out of pocket up until $2500 deductable has been met. After that pt has 100% coverage. AT this point due to hospital stay pt probably has 100% coverage should home IV's be needed at discharge. [Signature] Author:Candi Purdy (WHEEL ROLLER) [Signed 10:43] Interface, Public Relations Professional - 04/30/2010 2:52 AM CDT MD Notification [...] Alvarez (RN)[Signed 16:58] Authored: MD Notification Interface, Public Relations Professional - 04/30/2010 2:52 AM CDT Patient Status Patient Status - Physical status Stable (s/s of potential complications absent or manageable) - Psychosocial status Stable Discharge Planning - [facility] From: [facility] - Patient Care Unit: Med-Surg 2 - PCU - Discharge To: Home/Alternative home - Method of discharge: Ambulatory - Transportation: Private Discharge Information Discharge Information - Discharge information Discharge instructions reviewed with pt/family/so - Accompanied by Spouse - Mode of Travel Wheelchair Medications and Prescriptions Medications and Prescriptions - Medications and Prescriptions Called to [facility] by Dr. Sanchez Special Care [...] Office - Phone number of who patient [phone] should call: Follow Up Care Physician Appointments - Physician/clinician name: Dr. Sanchez - - When to see physician/clinician: Friday or Anaid next week (4-5 days) Signatures Dudley, Bessy (RN)[Signed 18:59] Authored: Patient Status, Discharge Planning, Discharge Information, Medications and Prescriptions, Special Care Needs and Instructions, Follow Up Care documented in this encounter Plan of Treatment Not on filedocumented as of this encounter Visit Diagnoses Not on filedocumented in this encounter
--- OUTSIDE RECORDS SUMMARY | 2022-01-10 09:54 | XMS_ITS | Encounter Summary ---
:1950 Author Organization [place] Address [address] [facility] [place] [address] Care Team Providers Name Role Phone Unavailable Primary Care Provider Unavailable Encounter Details Date Type Department Care Team Description 07/17/2005 Emergency room Kostas Alvarado MD [address] [place] [phone] Social History Tobacco Use Types Packs/Day Years Used Date Smoking Tobacco: Never Assessed Sex Assigned at Date Recorded Not on file documented as of this encounter Progress Notes Interface, Collet Driller - 07/19/2005 6:58 AM CDT FINAL PRIVATE [...] the red room. He was on the case monitor in a sinus rhythm without ectopy [...] MD MT: [id number] Name: TRAVIS RATLIFF Account: [id number] : 1950 Visit Date: 07/17/2005 Document: [id number] cc: Nelson Almaraz MD Interface, Collet Driller - 07/18/2005 11:23 AM CDT PRELIMINARY PRIVATE [...] the red room. He was on the case monitor in a sinus rhythm without ectopy [...] MODESTO#[id number] Name: TRAVIS RATLIFF MRN: [id number] Account: [id number] : 1950 Visit Date: 07/17/2005 Document: [id number] cc: Nelson Almaraz MD documented in this encounter Plan of Treatment Not on filedocumented as of this encounter Visit Diagnoses Not on filedocumented in this encounter
--- OUTSIDE RECORDS SUMMARY | 2022-01-10 09:54 | XMS_ITS | Encounter Summary ---
:1950 Author Organization [place] Address [address] [facility] [address] [place] [address] Care Team Providers Name Role Phone Unavailable Primary Care Provider Unavailable Encounter Details Date Type Department Care Team Description 04/02/2007 Admission H&P Keli Sanchez MD ([facility]) ENT SPECIALTY [facility] [place] [address] [place], [place] [address] (Wo rk) Social History Tobacco Use Types Packs/Day Years Used Date Smoking Tobacco: Never Assessed Sex Assigned at Date Recorded Not on file documented as of this encounter Progress Notes Keli Sanchez - 04/10/2007 2:57 PM CHARGE ACCOUNT IDENTIFICATION CLERK FINAL ADMISSION DIAGNOSIS: Left neck swelling. FINAL [...] MODESTO#[id number] Name: TRAVIS RATLIFF MRN: [id number] Account: [id number] : 1950 Admit Date: Discharge Date: 04/02/2007 Document: [id number] cc: Keli Almaraz MD GE ACCOUNT IDENTIFICATION CLERK documented in this encounter Plan of Treatment Not on filedocumented as of this encounter Visit Diagnoses Not on filedocumented in this encounter
--- OUTSIDE RECORDS SUMMARY | 2022-01-10 09:54 | XMS_ITS | Clinical Summary ---
:1950 Author Organization [facility] [place] [address] Care Team Providers Name Role Phone Mary Vasquez Elmer Unavailable [phone] Davey Lancaster MD Primary Care Provider [...] Effective Dates Phone Addre ss Type Group [facility] MR [id number] 2021-Present [address] [address] [place] [address] [address] (Home) [facility] [place] [address] Care Teams Clothing Busheler Relationship Specialty Start Date End Date Davey Lancaster MD PCP - General Family Practice 08/24/21 [address] [place] [address] Mary Vasquez AuD Provider Audiology 07/11/11
[2022-01-10 12:51] LABS: Chloride* 98 mmol/L (96-114); Sodium* 137 mmol/L (135-149)
[2022-01-10 12:52] LABS: Potassium* 3.8 mmol/L (3.6-5.1)
[2022-01-10 12:54] LABS: Blood Urea Nitrogen* 26 mg/dL (7-30); Carbon Dioxide* 30 mmol/L (20-32); Creatinine* 1.2 mg/dL (0.5-1.5); Estimated Glomerular Filt Rate 65 ml/min
[2022-01-10 12:55] LABS: Calcium* 9.5 mg/dL (8.4-10.6); Glucose* 213 mg/dL (60-115)
== END 2022-01-10 09:49 | disposition home or self-care (01) ==
LOC: NFLDREF 09:51
PROVIDERS: PCP Family Medicine; Visit Provider Family Medicine
DX: Z01.818 Encounter for other preprocedural examination (principal)
CPT/HCPCS: 80048

== ENCOUNTER 2022-01-14 09:24 | Day surgery (SDC) | payer MEDICARE, SELFPAY ==
[2022-01-14] VITALS (16 sets, daily range): BP systolic 87–152; BP diastolic 59–88; PULSE 51–81; RESP 10–20; TEMP 35.8–36.9; O2SAT 95–99; BMI 31.0
[2022-01-14] MEDS: LACTATED RINGERS 1000 ML 1,000 ML 100 ML IV (08:30)
--- NOTE | 2022-01-14 10:19 | CRLHL7_ITS ---
For Patients: As a result of the Cures Act, medical imaging exams and procedure reports are released immediately into your electronic medical record. You may view this report before your referring provider. If you have questions, please contact your health care provider. Indication: post op left TKA Technique: Findings/Impression: Hardware from a left total knee arthroplasty is in satisfactory position. Bone alignment is normal. No sign of acute fracture. Postop changes are within normal limits. Dictated by Nathan Gould MD @ 01/15/2022 10:10:38 AM (Electronically Signed)
[2022-01-14] MEDS: CELECOXIB 200 MG CAPSULE PO ×2 (10:20→20:37)
[2022-01-14] MEDS: OXYCODONE (CR) 10 MG TAB.ER.12H PO (10:20)
[2022-01-14] MEDS: ACETAMINOPHEN 500 MG TABLET 1000 MG PO ×3 (10:20→23:50)
[2022-01-14] MEDS: SODIUM CHLORIDE 0.9 % (FLUSH) 10 ML SYRINGE IVF ×2 (10:34→19:54)
[2022-01-14] MEDS: MIDAZOLAM HCL 1 MG/ML inj IVP (11:42)
[2022-01-14] MEDS: fentaNYL 100 MCG/2 ML inj IVP (11:42)
--- NOTE | 2022-01-14 12:03 | W.PM.NB ---
Nerve Block Nerve Block Time Seen by Provider: 12:04 Date Seen: 01/14/22 Type of block requested by surgeon for post-operative analgesia: adductor canal Side: left Time out performed: Yes Verification of patient name: Yes Verification of date of : Yes Site marking: site marked Name of person performing procedure: Otilio Continuous monitoring Was continuous monitoring of O2 sat, B/P, director of medicare, recorded every 15 minutes?: Yes Procedure Checklist: sterile prep, needles and gloves Ultrasound guided. Images saved: Yes Medications given in 5ml increments after negative aspiration: Ropivicaine %: 0.5 mL: 20 Needle gauge: 20 Decadron (mg): 10 Precedex (mcg): 25 Patient tolerated procedure well: Yes Additional comments: Needle noted adjacent to nerve Block Charges Block Charge (with Pro Fee): Femoral Nerve Use of Ultrasound Machine for Block: Yes- US Guidance/pain block
--- NOTE | 2022-01-14 12:04 | P.NB_ITS ---
Nerve Block Nerve Block Time Seen by Provider: 12:04 Date Seen: 01/14/22 Type of block requested by surgeon for post-operative analgesia: geniculars Side: left Time out performed: Yes Verification of patient name: Yes Verification of date of : Yes Site marking: site marked Name of person performing procedure: Otilio Continuous monitoring Was continuous monitoring of O2 sat, B/P, monitor technician, recorded every 15 minutes?: Yes Procedure Checklist: sterile prep, needles and gloves Medications given in 5ml increments after negative aspiration: Ropivicaine %: 0.5 mL: 9 Needle gauge: 25 Patient tolerated procedure well: Yes Block Charges Block Charge (with Pro Fee): Genicular Nerve Block Use of Ultrasound Machine for Block: No
--- NOTE | 2022-01-14 12:26 | SUR.PREOP ---
TIME?OUT:?1140 PT/RN/MDA?VERIFICATION?OF?SURGICAL?SITE left knee,?PROCEDURE nerve block,?AND?CONSENT OBTAINED?PRIOR?TO?INVASIVE?PROCEDURE.
[2022-01-14] MEDS: CEFAZOLIN 2 GM in 0.9 % SODIUM CHLORIDE Mini-bag 100 ML IVPB ×2 (12:30→17:50)
[2022-01-14] MEDS: TRANEXAMIC ACID 100 MG/ML INJ 1000 MG IV (12:32)
--- NOTE | 2022-01-14 13:00 | W.ANESCHARGE ---
Anesthesia Charges Start Date/Time Anesthesia Start Date: 01/14/22 Anesthesia Start Time: 12:19 Stop Date/Time Anesthesia Stop Date: 01/14/22 Anesthesia Stop Time: 14:32 Summary Emergency: No
--- NOTE | 2022-01-14 14:05 | PM.ORPRC ---
Procedure Note Date of procedure: 01/14/22 Procedure: PREOPERATIVE DIAGNOSIS: 1. Left knee osteoarthritis, primary, severe POSTOPERATIVE DIAGNOSIS: 1. Left knee osteoarthritis, primary, severe PROCEDURE: 1. Left total knee arthroplasty SURGEON: Davidson Stern MD. COMMERCIAL FRONT LOAD DRIVER: Arben Schmitt PA-C - Of note, a skilled digital marketing assistant was critical for this case to aid in patient positioning, tissue retraction, limb manipulation/positioning, and closure. ANESTHESIA: Spinal anesthetic EBL: 50ml IMPLANTS: DePuy J&J all cemented TKA - Attune PS femur size 6 regular, size 6 tibia, 5 poly spacer, 38 mm patella TOURNIQUET: 90 min at 300 torr COMPLICATIONS: None evident INDICATIONS: The patient is a pleasant 71-year-old male who has experienced severe left knee pain and difficulty bearing weight. Workup included x-rays which revealed severe osteoarthrosis in the knee. Given the deformity, the dysfunction, and the pain, as well as the failure of nonoperative management, recommendation was made for surgery. FINDINGS: Full-thickness cartilage loss medial femoral condyle and medial tibial plateau with significant sclerotic/dense bone deep to the worn out surfaces. Significant chondromalacia patellofemoral compartment as well. To lesser degree lateral compartment. Moderate effusion upon entering the joint. DESCRIPTION OF PROCEDURE: Following a thorough discussion of risks, benefits, and alternatives consent was obtained and the left knee was marked. The patient was brought to the operating room and placed supine on the operating table. Induction of anesthesia was undertaken. 2 g IV Ancef and 1 g tranexamic acid was administered within 1 hr of incision preoperatively. Proper time-out was performed identifying proper patient, site, procedure. The operative extremity was prepped and draped in the appropriate sterile fashion using ChloraPrep after the patient was positioned supine with all bony prominences well padded. A longitudinal, anterior, midline skin incision was made starting approximately 3cm proximal to the superior pole of the patella and advanced distal to the tibial tubercle. A median parapatellar arthrotomy was created. A medial subperiosteal sleeve was created with knife, gallardo elevator and curved osteotome. The retropatellar fatpad was resected and the synovium in the suprapatellar pouch excised to visualize the anterior femoral cortex. Femoral preparation was performed via an intramedullary guide. Step drill allowed access into the femoral canal. The distal cutting guide was placed with 5? of valgus and 10 mm cut on the distal femur. Femur was sized using a posterior referencing guide in 3? of external rotation. This found have a best fit with the sizing noted above. The 4 in 1 cutting block was then placed, and the distal femur shaped accordingly. The box cut was then created and the trial implant inserted to confirm appropriate fit. We turned our attention to the proximal tibia. Extramedullary guide was utilized for cutting with the goal of being 90 degree cut from the mechanical axis of the tibia in the varus/valgus plane utilizing tibial crest as the primary alignment. Initially a 3 mm resection was performed from the medial tibial plateau. Ultimately, balancing was achieved in both flexion and extension in both varus and valgus. The knee was able to achieve full extension as well comfortably. The patella was initially measured and found have a thickness of 25 mm. It was resected back to approximately 15 mm. It was sized to be a best fit with as noted above. This was drilled, trial placed. All trials were placed and found to have an excellent stability and balance. At this stage, trial implants were removed, the knee was thoroughly irrigated with normal saline, and the cement was mixed. After irrigation, the knee was thoroughly dried, and cement placed, with the real tibial and femoral implants placed along with the patella. Trial poly spacer was placed and confirmed to have excellent range of motion and full extension, and the real poly spacer opened and inserted. All extra cement was removed, and a 3 min Betadine soak performed. Finally, a final irrigation round with normal saline was performed. Closure performed with 0 PDS and #0 Stratafix for the quad tendon/retinaculum. 2-0 Vicryl/Stratafix for the subcutaneous and 4-0 Monocryl for subcuticular closure. Dressings were applied and the patient was awoken from anesthesia after the tourniquet deflated and transferred the PACU in stable condition. A skilled digital marketing assistant was critical for this case to aid in patient positioning, tissue retraction, bone exposure, limb manipulation/positioning, patient safety, and closure. PLAN: 1. Weight bear as tolerated operative extremity. 2. 23 hr perioperative antibiotics. 3. Ice. 4. PT/OT consults for ambulation assistance/mobility education. 5. Social work consult for discharge planning. 6. DVT prophylaxis with at SCDs, Devan Hose, and aspirin twice daily.
--- NOTE | 2022-01-14 14:37 | W.ANESCHARGE ---
Anesthesia Charges Start Date/Time Anesthesia Start Date: 01/14/22 Anesthesia Start Time: 12:19 Stop Date/Time Anesthesia Stop Date: 01/14/22 Anesthesia Stop Time: 14:32 Summary Emergency: No
[2022-01-14] MEDS: LACTATED RINGERS 1000 ML 1,000 ML 75 ML IV (16:38)
[2022-01-14] MEDS: OXYCODONE 5 MG TABLET PO ×3 (17:49→20:54)
[2022-01-14] MEDS: METFORMIN 500 MG TABLET PO (17:49)
--- NOTE | 2022-01-14 17:58 | PC.NURSE ---
End of Shift Note: Patient arrived to the floor around 1500. Vitals have been stable. He is just now getting some feeling of ache in his leg. Oxycodone along with tylenol to see if this will help his pain. See blood sugar charted along with metformin per eMAR.
[2022-01-14] MEDS: HYDROmorphone 0.5 mg/0.5 ml inj IVP (19:29)
[2022-01-14] MEDS: ONDANSETRON 2 MG/ML inj 4 MG IVP (19:54)
[2022-01-14] MEDS: ASPIRIN 81 MG TABLET EC PO (20:37)
[2022-01-14] MEDS: SENNOSIDES 1 TAB TABLET 2 TAB PO (20:37)
--- NOTE | 2022-01-14 22:54 | P.IMCN_ITS ---
Date of Consult Patient: [facility] Patient Consult date: 01/14/22 Requesting Physician: Orthopedics Primary Care Provider: Davey Lancaster MD Consult Narrative Reason for consult: postoperative management of hypertension, DMT2, hypothyroidism Narrative: Ciro Jasso is a 71 year old man with end-stage left gonarthrosis presents for elective left total knee arthroplasty today. This is undertaken successfully without any apparent perioperative complications. Review of Systems Status of ROS: Reports: 10 or more systems reviewed and unremarkable except as noted in History and below Narrative: Blood pressures and blood sugars are generally well controlled on his current medication regimen. He denies any angina or anginal equivalent, syncope or near syncope, palpitations or fluttering, dyspnea with exertion, paroxysmal nocturnal dyspnea, orthopnea, dependent edema, claudication. Uses his CPAP machine at bedtime religiously. He denies recent illnesses, no fevers, rigors, diaphoresis. No recent travel, trauma, or injury. Denies night sweats, weight loss, weight gain. Denies hypoglycemia, polyuria, polydipsia, polyphagia. Bowel and bladder function are satisfactory. Eating and drinking without difficulties. Denies any neurologic concerns or complications. Denies myalgias. [facility] Medical History Acute medial meniscus tear of left knee Atherosclerosis of coronary artery Benign paroxysmal positional vertigo (2006) Chronic sinusitis Colon polyp Erectile dysfunction Gout Heart murmur on physical examination MCL sprain of left knee Obstructive sleep apnea treated with continuous positive airway pressure (CPAP) Stress fracture of left femur Systolic murmur (~08/2021) Surgical History History of bursectomy (~2010) History of colonoscopy with polypectomy History of laminectomy S/P left knee arthroscopy (08/27/21) Status post surgical manipulation of ankle joint (~2015) Family History Father Diabetes Brother Myocardial infarction, Onset Age: 43 Mother Myocardial infarction, Onset Age: 57 Social History Narrative: , 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, 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 Social alcohol use 3-4 drinks a week Does not use illicit drugs Non-smoker Does not exercise regularly but likes to golf sometimes walk and yard work Smoking Status: Never smoker Do you use any of these nicotine containing products: None How often do you have a drink containing alcohol: 2-3 times a week Alcohol type: beer and hard liquor How many standard drinks containing alcohol do you have on a typical day: 1 or 2 How often do you have six or more drinks on one occasion: Never AUDIT-C Alcohol total score: 3 Non-prescribed substance use: denies use Caffeine: Yes (coke- 6 oz 3x/ week) Little interest or pleasure in doing things: not at all Feeling down, depressed, or hopeless: not at all service: No Meds Home Medications and Allergies Home Medications Medication Instructions Recorded Confirmed Type calcium polycarbophil 625 mg tablet 1,250 mg PO DAILY 08/07/21 01/14/22 History fexofenadine 180 mg tablet 180 mg PO DAILY 08/07/21 01/14/22 History aspirin 81 mg tablet,delayed 81 mg PO DAILY 01/10/22 01/14/22 History release Allergies Allergy/AdvReac Type Severity Reaction Status Date / Time No Known Allergies Allergy Unknown Verified 01/14/22 09:53 Exam Narrative: Exam Narrative: Sitting in his hospital bed. Appears comfortable and in no acute distress. Friendly, cooperative, articulate. Mood and affect are congruent. Alert, oriented to self, place, time, situation. Lungs entirely clear to auscultation without wheezing, rhonchi, or rales. Heart tones with regular rhythm, normal S1-S2. Soft grade 2/6 systolic murmur in right and left upper sternal border. No gallops or rubs. Abdomen is obese with active bowel sounds, soft, nontender. Extremities without edema. Can already move all 4 extremities. Skin is intact. Const: Vital Signs, click to edit/add: Vital Signs - 24 hr 01/14/22 10:03 01/14/22 11:45 01/14/22 14:27 Temperature 98.5 F 97.5 F L Pulse Rate 63 60 60 Pulse Rate [Bilate ral Pulse Oximeter ] Pulse Rate [Left R adial] Respiratory Rate 16 16 14 Blood Pressure 125/77 120/70 98/63 Blood Pressure [Le ft Arm] Pulse Oximetry 98 99 96 Oxygen Delivery Me thod Room Air Nasal Cannula Room Air Oxygen Flow Rate 2 01/14/22 14:30 01/14/22 14:35 01/14/22 14:40 Temperature Pulse Rate 62 62 56 L Pulse Rate [Bilate ral Pulse Oximeter ] Pulse Rate [Left R adial] Respiratory Rate 12 12 12 Blood Pressure 88/63 L 98/68 87/67 L Blood Pressure [Le ft Arm] Pulse Oximetry 95 95 95 [facility] Room Air Room Air Oxygen Flow Rate 01/14/22 14:44 01/14/22 14:49 01/14/22 14:49 Temperature Pulse Rate 55 L 57 L 55 L Pulse Rate [Bilate ral Pulse Oximeter ] Pulse Rate [Left R adial] Respiratory Rate 12 10 L 12 Blood Pressure 105/60 101/64 107/70 Blood Pressure [Le ft Arm] Pulse Oximetry 95 97 97 [facility] Air Room Air Room Air Oxygen Flow Rate 01/14/22 15:08 01/14/22 16:15 01/14/22 16:30 Temperature 96.9 F L 96.4 F L 96.4 F L Pulse Rate 51 L Pulse Rate [Bilate ral Pulse Oximeter ] 54 L Pulse Rate [Left R adial] 51 L Respiratory Rate 18 20 Blood Pressure 152/75 H Blood Pressure [Le ft Arm] 131/59 L 121/73 Pulse Oximetry 97 96 96 [facility] Air Room Air Oxygen Flow Rate 01/14/22 16:45 01/14/22 17:00 01/14/22 18:00 Temperature 97.0 F L 97.0 F L 97.0 F L Pulse Rate Pulse Rate [Bilate ral Pulse Oximeter ] Pulse Rate [Left R adial] 52 L 54 L 81 Respiratory Rate 20 20 20 Blood Pressure Blood Pressure [Le ft Arm] 133/78 131/69 138/81 Pulse Oximetry 97 97 97 [facility] Air Room Air Room Air Oxygen Flow Rate 01/14/22 19:00 Temperature 98 F Pulse Rate Pulse Rate [Bilate ral Pulse Oximeter ] Pulse Rate [Left R adial] 78 Respiratory Rate 18 Blood Pressure Blood Pressure [Le ft Arm] 146/88 H Pulse Oximetry 95 [facility]xygen [facility] Room Air Oxygen Flow Rate Assessment and Plan Assessment and plan (1) Osteoarthritis of left knee: Problem comment: Left knee osteoarthrosis, severe Status: Acute (2) Controlled type 2 diabetes mellitus: Status: Acute (3) Hypertension: Status: Chronic (4) Hyperlipemia: Status: Chronic (5) Hypothyroidism: Status: Chronic (6) Obstructive sleep apnea treated with continuous positive airway pressure (CPAP): Status: Chronic (7) Systolic murmur: Problem comment: Cardiac echo in August 2021 revealed unremarkable valves normal EF and normal left and right ventricle, normal EKG Status: Chronic (8) Obesity: Status: Acute Plan 1. Reviewed my impression and recommendations with the patient and his . Answered their questions to their satisfaction. 2. Agree with perioperative antibiotic prophylaxis. 3. Agree with postoperative venous thromboembolism prophylaxis with aspirin as specified. 4. Continue with CPAP use. 5. Hold his antihypertensive for now and resume other medications. 6. Should his condition continued to be stable throughout the night anticipate no reason to not discharge him tomorrow on his usual medication regimen.
[2022-01-15 00:09] VITALS: BP 154/84; PULSE 70; RESP 18; TEMP 36.7; O2SAT 96
[2022-01-15] MEDS: CEFAZOLIN 2 GM in 0.9 % SODIUM CHLORIDE Mini-bag 100 ML IVPB ×2 (02:07→10:12)
[2022-01-15 02:16] VITALS: BP 143/77; PULSE 73; RESP 18; TEMP 36.6; O2SAT 96
[2022-01-15] MEDS: OXYCODONE 5 MG TABLET PO ×3 (05:55→11:39)
[2022-01-15] MEDS: ACETAMINOPHEN 500 MG TABLET 1000 MG PO (06:00)
[2022-01-15] MEDS: LEVOTHYROXINE 50 MCG TABLET PO (06:41)
[2022-01-15 07:00] VITALS: BP 145/77; PULSE 63; RESP 18; TEMP 36.6; O2SAT 96; O2SAT 97
[2022-01-15 07:48] LABS: Hematocrit 36.3 % (37.0-53.0); Hemoglobin* 12.8 gm/dL (13.5-17.5); Immature Granulocytes Pct Auto 0.4 %; Lymphocytes Percent Auto 6.6 % (20-44); Mean Corpuscular HGB Conc 35 gm/dL (32-36); Mean Corpuscular Hemoglobin 32 pg (26-34); Mean Corpuscular Volume 91 fL (80-100); Monocytes Percent Auto 8.1 % (0.0-11.0); Neutrophils Percent Auto 84.9 % (42.0-72.0); Platelet Count* 144 K/uL (140-440); RDW Coefficient of Variation % 12.8 % (11.5-15.5); Red Blood Count 4.01 m/uL (4.30-5.90); White Blood Count* 17.92 K/uL (4.50-11.00)
[2022-01-15 08:02] LABS: Potassium* 4.3 mmol/L (3.6-5.1); Sodium* 136 mmol/L (135-149)
[2022-01-15 08:05] LABS: Blood Urea Nitrogen* 25 mg/dL (7-30); Creatinine* 1.3 mg/dL (0.5-1.5); Est. Creatinine Clearance* 53.63; Estimated Glomerular Filt Rate 59 ml/min
[2022-01-15 08:24] LABS: Slide Review Reflex No
[2022-01-15] MEDS: SENNOSIDES 1 TAB TABLET 2 TAB PO (08:35)
[2022-01-15] MEDS: FEXOFENADINE 180 MG TABLET PO (08:36)
[2022-01-15] MEDS: ASPIRIN 81 MG TABLET EC PO (08:36)
[2022-01-15] MEDS: CELECOXIB 200 MG CAPSULE PO (08:36)
[2022-01-15] MEDS: ROSUVASTATIN CALCIUM 10 MG TABLET 5 MG PO (08:36)
[2022-01-15] MEDS: METFORMIN 500 MG TABLET PO (08:37)
--- NOTE | 2022-01-15 09:39 | PC.SOCIAL ---
Addendum entered by SHAGUFTA Zhou 01/16/22 11:32: Dosier Operator reviewed and agrees with this note. Original Note: Discharge planning: Social work met with pt. to discuss discharge plan. Pt. states that his is at home to help him, and that he has other nearby friends he can call if he ever needs support. Pt. says that everything he needs at home is on one level except for three stairs to get into the home, which he feels comfortable scaling. Pt. has no other concerns at this time. Pt. is aware that he can reach out to the hospital with any future concerns.
--- NOTE | 2022-01-15 12:06 | PC.NURSE ---
reviewed d/c instructions with patient. pt verbalized understanding of plan. 10mg oxy given prior to d/c. spouse picked up meds from pharmacy prior to d/c. IV removed. room checked for belongings prior to d/c. pt discharged from m/s unit at 1150 home with spouse. pt to f/u with ortho in 1 wk.
--- NOTE | 2022-01-15 15:55 | PM.ORPN ---
Subjective Subjective Date Seen: 01/15/22 Principal diagnosis: Status postop day 1, left total knee arthroplasty Interval history: Patient reports doing well. No acute events over night. Pain managed with scheduled /PRN medications and ice. DVT prophylaxis 81 mg aspirin by mouth twice daily, bilateral knee high Devan stockings, and SCDs. Denies fevers, chills, aches, N/V, CP, SOB/HOBSON, tachycardia, or lightheadedness. Ortho Exam Narrative Exam Narrative: -Patient appears comfortable; no apparent acute distress -Alert and oriented times 3 -Operative knee mildly swollen; soft tissues supple; no ecchymosis; no erythematous streaking Warmth appropriate -Surgical dressing clean, dry, intact; no drainage -Bilateral calfs soft; no significant swelling, edema, tenderness, erythema, discoloration, warmth, or palpable cords -2+ DP/PT pulses, intact dermatomes and myotomes distally (5/5 strength) Const Vital Signs, click to edit/add: Vital Signs - 24 hr 01/14/22 16:15 01/14/22 16:30 01/14/22 16:45 Temperature 96.4 F L 96.4 F L 97.0 F L Pulse Rate [Bilateral Pulse Oximeter] 54 L Pulse Rate [Left Radial] 51 L 52 L Respiratory Rate 18 20 20 Blood Pressure [Left Arm] 131/59 L 121/73 133/78 Pulse Oximetry 96 96 97 Oxygen Delivery Method Room Air Room Air Room Air Oxygen Flow Rate 01/14/22 17:00 01/14/22 18:00 01/14/22 19:00 Temperature 97.0 F L 97.0 F L 98 F Pulse Rate [Bilateral Pulse Oximeter] Pulse Rate [Left Radial] 54 L 81 78 Respiratory Rate 20 20 18 Blood Pressure [Left Arm] 131/69 138/81 146/88 H Pulse Oximetry 97 97 95 Oxygen Delivery Method Room Air Room Air Room Air Oxygen Flow Rate 01/14/22 23:00 01/15/22 00:09 01/15/22 02:16 Temperature 98.1 F 98 F Pulse Rate [Bilateral Pulse Oximeter] Pulse Rate [Left Radial] 70 73 Respiratory Rate 18 18 Blood Pressure [Left Arm] 154/84 H 143/77 H Pulse Oximetry 95 96 96 Oxygen Delivery Method CPAP CPAP Oxygen Flow Rate 01/15/22 07:00 01/15/22 07:00 01/15/22 07:00 Temperature 97.8 F Pulse Rate [Bilateral Pulse Oximeter] Pulse Rate [Left Radial] 63 63 Respiratory Rate 18 18 Blood Pressure [Left Arm] 145/77 H Pulse Oximetry 96 97 Oxygen Delivery Method CPAP Oxygen Flow Rate 0 Assessment and Plan Assessment and plan (1) Osteoarthritis of left knee: Problem details: Status postoperative day 1 left total knee arthroplasty Status: Acute (2) Controlled type 2 diabetes mellitus: Problem details: Antibiotic cement used Status: Acute (3) Hypertension: Status: Chronic (4) Hyperlipemia: Status: Chronic (5) Hypothyroidism: Status: Chronic (6) Obstructive sleep apnea treated with continuous positive airway pressure (CPAP): Status: Chronic (7) Systolic murmur: Problem details: Cardiac echo in August 2021 revealed unremarkable valves normal EF and normal left and right ventricle, normal EKG Status: Chronic (8) Obesity: Status: Acute Plan - Complete 23 hour perioperative antibiotics. - PT/OT consult for education and assistance. - Social work consult for discharge planning - Prescribed analgesics as needed - DVT prophylaxis: 81 mg aspirin by mouth twice daily, bilateral knee high Devan Hose stockings and SCDs - Anticipation is for discharge to family 01/15/2022 if the patient remains medically stable, pain is controlled, and they are safe with mobilization.
--- NOTE | 2022-01-15 15:57 | PM.DS1 ---
DS: Providers Provider Date Seen: 01/15/22 Date of admission: Med/Surg Recovery 01/14/2022 Primary care physician: Davey Lancaster MD Consults: 01/14/22 15:13 Consult to Occupational Therapy [CONS] Routine Comment: Reason(s) for OT Consult:: ADLs Prior to Discharge Any Restrictions?:: See Comment Comment: See nursing activity order for any restrictions. Consult to Physical Therapy [CONS] Routine Comment: Ambulate in the [place] today. Reason(s) for PT Consult:: TKA TX Protocol POD#0 Any Restrictions?:: See Comment Comment: See nursing activity order for any restrictions. Consult to Physician [CONS] Routine Comment: Consulting Provider: Hospitalists Has provider been notified: No Consult to Loan Representative [CONS] Routine Comment: Reason for Consult:: Discharge Planning Needs Attending Physician on discharge: Davidson Stern MD Date of Discharge: 01/15/22 DS: Diagnosis Discharge Diagnosis (1) Osteoarthritis of left knee: Status: Acute Problem details: Status postoperative day 1 left total knee arthroplasty DS: Summary Hospital Course Hospital Course: The patient has a history of left knee osteoarthritis, primary, severe. After appropriate preoperative evaluation, the patient underwent left total knee arthroplasty. Postoperatively given anticoagulation for deep vein thrombosis prophylaxis. They progressed to PT/OT and were felt ready and prepared for discharge to home with appropriate pain medication and anticoagulation medications. Status at Discharge Functional status at discharge: uses cane/walker Overall status at discharge: patient is progressing back to baseline Time Spent with Patient Time attestation: Total time spent providing and/or coordinating discharge services: Exam Const: Vital Signs, click to edit/add: Vital Signs - 24 hr 01/14/22 16:15 01/14/22 16:30 01/14/22 16:45 Temperature 96.4 F L 96.4 F L 97.0 F L Pulse Rate [Bilate ral Pulse Oximeter ] 54 L Pulse Rate [Left R adial] 51 L 52 L Respiratory Rate 18 20 20 Blood Pressure [Le ft Arm] 131/59 L 121/73 133/78 Pulse Oximetry 96 96 97 Oxygen Delivery Me thod Room Air Room Air Room Air Oxygen Flow Rate 01/14/22 17:00 01/14/22 18:00 01/14/22 19:00 Temperature 97.0 F L 97.0 F L 98 F Pulse Rate [Bilate ral Pulse Oximeter ] Pulse Rate [Left R adial] 54 L 81 78 Respiratory Rate 20 20 18 Blood Pressure [Le ft Arm] 131/69 138/81 146/88 H Pulse Oximetry 97 97 95 Oxygen Delivery Me thod Room Air Room Air Room Air Oxygen Flow Rate 01/14/22 23:00 01/15/22 00:09 01/15/22 02:16 Temperature 98.1 F 98 F Pulse Rate [Bilate ral Pulse Oximeter ] Pulse Rate [Left R adial] 70 73 Respiratory Rate 18 18 Blood Pressure [Le ft Arm] 154/84 H 143/77 H Pulse Oximetry 95 96 96 Oxygen Delivery Me thod CPAP CPAP Oxygen Flow Rate 01/15/22 07:00 01/15/22 07:00 01/15/22 07:00 Temperature 97.8 F Pulse Rate [Bilate ral Pulse Oximeter ] Pulse Rate [Left R adial] 63 63 Respiratory Rate 18 18 Blood Pressure [Le ft Arm] 145/77 H Pulse Oximetry 96 97 Oxygen Delivery Me thod CPAP Oxygen Flow Rate 0 DS: Data Data Completed and Pending Labs on day of discharge: Labs from last 24 hours 01/15/22 01/15/22 07:30 07:30 WBC 17.92 H RBC 4.01 L Hgb 12.8 L Hct 36.3 L MCV 91 MCH 32 MCHC 35 RDW Coeff of Kip 12.8 Plt Count 144 Neut % (Auto) 84.9 H Lymph % (Auto) 6.6 L Roosevelt % (Auto) 8.1 Eos % (Auto) 0.0 Baso % (Auto) 0.0 Neut # (Auto) 15.20 H Lymph # (Auto) 1.20 Roosevelt # (Auto) 1.50 H Eos # (Auto) 0.00 Baso # (Auto) 0.00 Abs Immat Gran (auto) 0.10 Imm/Tot Granulo (auto) 0.4 Sodium 136 Potassium 4.3 BUN 25 Creatinine 1.3 Estimated Creat Clear 53.63 Estimated GFR 59 Discharge Plan Discharge Disposition: Home, Self-Care Discharging Surgeon: Davidson Stern Follow-Up Appointment: 1 week PO with [facility] Prescriptions: New acetaminophen 500 mg capsule 500 - 1,000 mg PO Q6H MDD 4000mg PRNQty: 100 0RF aspirin 81 mg tablet,delayed release (DR/EC) 81 mg PO BID Qty: 60 0RF Rx Instructions: Medication to help prevent blood clots postoperatively; take TWICE daily. sennosides-docusate sodium [Senna-S] 8.6-50 mg tablet 1 - 4 tab-cap PO BID PRN (Reason: constipation) Qty: 60 0RF Rx Instructions: Hold medication if experiencing loose stools. celecoxib 100 mg capsule 100 mg PO BID Qty: 60 0RF oxycodone 5 mg tablet 2.5 - 5 mg PO Q4-6H MDD 6 PRN (Reason: pain) Qty: 42 0RF Rx Instructions: Take as needed for postop pain: 2.5mg mild pain, 5mg moderate-severe pain; wean as tolerated. Continued calcium polycarbophil 625 mg tablet 1,250 mg PO DAILY fexofenadine 180 mg tablet 180 mg PO DAILY tadalafil 20 mg tablet 20 mg PO .as Direc as needed PRN (Reason: sexual activity) Qty: 10 11RF hydrochlorothiazide 25 mg tablet 25 mg PO DAILY Qty: 90 4RF levothyroxine 50 mcg tablet 50 mcg PO DAILY Qty: 90 4RF metformin 500 mg tablet 500 mg PO BID Qty: 180 4RF rosuvastatin 5 mg tablet 5 mg PO DAILY Qty: 90 4RF Held aspirin 81 mg tablet,delayed release (DR/EC) 81 mg PO DAILY Hold Instructions: Resume on 02/14/22. Resume 81 mg once daily after completing the one month of 81 mg twice daily per orthopedic surgeon. Label Comments: Holding for upcoming surgery Activity Level: Activity as Tolerated, Weight Bearing as Tolerated, Use Cane and Use Walker Discharge Diet: Diabetic Patient Instructions: Acetaminophen (By mouth), Aspirin (By mouth), Oxycodone, Rapid Release (By mouth), Celecoxib (By mouth), Senna (By mouth), Surgical Site Infections (DC), Knee Replacement (DC) Additional Instructions: Wound: ?Do not remove original dressing; we will remove this at first postop visit in 1 week. Only remove dressing if integrity is in question. ?No immersing wound in water; showering okay; light scrub with your hand and body soap, rinse, dab dry ?Sutures are under the skin, will dissolve; allow surgical glue to come off naturally; do not scrub the wound or apply ointments/lotions ?Call our office with any redness that streaks, excessive drainage from the wound, or wound gapping. Ice/Elevate: ?Ice as needed for swelling and discomfort (cryocuff or ice pack); elevate frequently above the heart ELZA socks: ?Wear for 1 month, remove for 1 hour 3 times per day ?These are frustrating to take on/off, but are important for blood clot prevention for 1 month after surgery Blood Clot Prevention (DVT): ?Medication: 81 mg aspirin by mouth twice daily (1 month) Driving: ?Do not drive while taking narcotic pain medication ?Anticipate 4-6 weeks no driving if operative leg is driving leg Dental: ?No elective dental work for 6 months post-op. If there is an urgent/emergent dental need, contact our office for an antibiotic prescription. Smoking/Alcohol: ?Do not smoke; do no drink alcohol especially when taking postoperative oral narcotic medication Seek Care from you Primary Care Provider if you experience the following issues in the postoperative phase and beyond: ?Bacterial infections such as: pneumonia, bacterial skin infection (cellulitis), UTI, high fever, chills unrelated to the operative body part - call your primary care physician urgently for treatment in hopes to protect your health and the metal implant. Referrals: ?PT, OT per patient preference - evaluate treat total knee arthroplasty protocol (gait training, ROM, ADLs) Follow up: ?Ortho surgeon follow-up in 6 weeks; repeat radiographs three views operative knee ?[facility] visit in 1 week *If there are any acute concerns regarding your surgery, please call our orthopedic clinic ([phone]) Forms: Work/School Release Follow-up: Davey Lancaster MD [Primary Care Provider] - None (Follow up as needed ) Arben Schmitt PA-C [Physician Patcher [place]] - 01/22/22 9:00 am ([facility] [place]) Discharge Orders: Discharge Order (Routine); Ordered 01/15/22 Ordered By: Arben Schmitt
== END 2022-01-15 11:50 | disposition home or self-care (01) ==
LOC: OR 09:26 → MEDSURG 09:30
PROVIDERS: PCP Family Medicine; Visit Provider Orthopaedic Surgery Sports Medicine
PROC: (CPT 27447; principal; 2022-01-14 11:30)
DX: M17.12 Unilateral primary osteoarthritis, left knee (principal); M25.562 Pain in left knee; E11.42 Type 2 diabetes mellitus with diabetic polyneuropathy; I10 Essential (primary) hypertension; R01.1 Cardiac murmur, unspecified; E03.9 Hypothyroidism, unspecified; G47.33 Obstructive sleep apnea (adult) (pediatric); Z99.89 Dependence on other enabling machines and devices; E66.9 Obesity, unspecified; I25.10 Atherosclerotic heart disease of native coronary artery without angina pectoris; E78.5 Hyperlipidemia, unspecified; Z68.31 Body mass index [BMI] 31.0-31.9, adult
CPT/HCPCS: 27447; 01402; 36415; 64447; 64454; 73560; 76942; 82565; 82962; 84132; 84295; 84520; 85025; 97110; 97116; 97161; 97165; A9270; C1776; J0690; J1100; J1170; J2250; J2370; J2405; J2704; J2795; J3010; J7120

== ENCOUNTER 2022-02-05 14:00 | Outpatient (RCR) | payer MEDICARE, SELFPAY ==
--- NOTE | 2021-09-12 14:21 | PT.OPDN ---
PT [facility] Daily Note PT [facility] Daily Note Start: 08/07/21 08:37 Freq: Status: Active Protocol: Document 09/12/21 10:05 LSL (Rec: 09/12/21 11:02 LSL [id number]) E-signed By Devorah Sanchez, PT PT OP Daily Progress Note Visit Information Note Type Daily Note,Re-Evaluation Visit Number 1 Insurance Authorized Visits Medicare guidelines Physician Authorized Visits eval & treat Insurance Information Recert Due Date 12/11/21 Insurance Name Medicare B Medical Diagnosis L knee mild OA Treating Diagnosis weakness, pain, impaired ROM, impaired gait Referring MD Stern Subjective Subjective Pt. reports he is continuing to have significant pain and swelling 2 weeks after meniscectomy. Has taken his [employer] fishing since surgery. Mostly just walking in driveway. Pain in L knee after crossing his ankle over R knee over the weekend. Precautions Weight Bearing Status Full Weight Bearing Home Exercise Home Exercise Comments [employer] - [id number] bike, SLR, TKE, belt assisted heel slide Objective Other/Pertinent Objective BALANCE - less than 1 second L , R a couple seconds with UE support GAIT - moderately antalgic with SPC STRENGTH - DF 3+/5, quads and HS 5/5 AROM - 0/5/100 MEASUREMENTS: 6 above MP 48 cm 2 above MP 42.5 cm joint line 36.5 cm 6 below MP 37.5 cm Patient Instructed in Risks/Benefits Yes Therapeutic Exercise Therapeutic Exercise Minutes (minutes) 15 Therapeutic Exercise: To Restore -Bike [id number] 5'- Functional Status -belt assisted heel slide 10x 10 sec -TKE OTB 10x 5 sec -SLR 10x Manual Therapy Techniques Manual Therapy Minutes (minutes) 10 Manual Therapy Techniques manual decongestive STM to L knee especially proximal to patella with gd 2 patellar mobs Treatment Minutes Untimed Code Treatment Minutes 25 Timed Code Treatment Minutes 25 Total Treatment Time 50 Billing Units Manual Therapy Units 1 Therapeutic Exercise Units 1 Re-Evaluation Units 1 Assessment/Impression Assessment/Impression Pt. is a 70 y/o male who presents with L knee pain and swelling s/p PMM. After educating the patient today he understands these symptoms can take longer to resolve when there is significant OA present and he may need to be a bit gentler for a little longer than when this procedure is done in less degenerated knees. His extension and flexion are limited with a moderate amount of swelling about the entirety of the knee. This is impacting the quality of his gait. In general he is not particularly flexible, so this may complicate his recovery. PT will be geared towards improving his strength and ROM through therex and HEP establishment, with manual therapy to assist in decreasing edema improving joint mobility, with modalities prn including in education in how to use his own TENS unit to assist in pain managment. Plan of Care Physical Therapy Goals SHORT TERM GOALS: (2-3 weeks) 1. Pt. able to walk 200 feet for community ambulation on level ground to complete errands with SPC 2. Pt. to have 4/5 L hip strength to support his knee. PENITENTIARY GOALS: (4+ weeks) 3. Decreased swelling by 1 cm to decrease inhibition. 1. Pt. able to ambulate for up to 30 minutes with pain less than 3/10. 2. Pt. able to walk on unlevel ground to complete yard work or take [employer] fishing with pain less than 3/10. 3. L hip and HS strength to 5/ 5 to increase L knee stability . [ End ] Daily Plan of Care Continue per POC Daily Plan of Care Comments Ongoinc POC to consist of therex, NM re-ed, manual therapy, CP and estim prn Recertification Information Patient's H.I.C.N.# # Most Recent Visit 09/12/21 Recertification Start Date 09/12/21 Recertification Due Date 12/14/21 Reasons to Continue Skilled Therapy has had a surgery with continued strength and ROM limitations impacting his gait Rehabilitation Potential Good Continued Plan of Care and Interventions therex, NM re-ed, manual therapy, modalities I Certify That I Have Established All Therapy Services/Plan Therapist Signature & License Number Devorah Sanchez, PT [id number] Physician Signature Shows Agreement Dates & Medical Necessity Physician Comment/Change Comment or Changes Physician Signature & Date Please Sign/Date Here Physician NPI Number #
--- NOTE | 2022-01-17 09:30 | PT.OPDN ---
PT [facility] Daily Note [facility] Daily Note Start: 08/07/21 08:37 Freq: Status: Active Protocol: Document 01/17/22 08:01 LSL (Rec: 01/17/22 09:25 LSL [id number]) E-signed By Devorah Sanchez, PT PT OP Daily Progress Note Visit Information Note Type Daily Note,Recert/Progress Note Visit Number 1 Insurance Authorized Visits TBD Physician Authorized Visits eval & treat Insurance Information Recert Due Date 04/12/22 Insurance Name Medicare B Medical Diagnosis s/p L TKA Treating Diagnosis weakness, pain, swelling, impaired ROM, impaired mobility Referring MD Stern Subjective Subjective Pt reports he had his follow up with his surgeon and there is more damage to his knee than prior to his first surgery and he will be having a L TKA on 01-14-22. Knee has intermittently good and bad days. Recently the sleeve I brought seems to be making it more irritated than without it , so I haven't worn it for the past few days. Currently we plan to leave for [place] and come back for the surgery and be home for a month and then return to [place] and continue my care there, but will need to see how things go. Preferred Name Christiano Precautions Treatment Precautions/Contraindications DOS 01/14/22 Weight Bearing Status Weight Bear as Tolerated Home Exercise Home Exercise Comments Post-op TKA exercises Objective Other/Pertinent Objective AROM MEASUREMENTS 6 above MP 54 cm 2 above MP 46 cm joint line 38.5 cm 6 below MP 36.5 cm STRENGTH - poor in MMT and quad set due to pain PALPATION - very tender in the thigh mid to proximal POSTURE - initially couldn't sit with pressure on the back of his L thigh Patient Instructed in Risks/Benefits Yes Therapeutic Exercise Therapeutic Exercise Minutes (minutes) 12 Therapeutic Exercise: To Restore -bike S10 off 7' rocking Functional Status -manual extension stretch in supine -manual flexion stretch in sitting -heel slide with assist x2 Manual Therapy Techniques Manual Therapy Minutes (minutes) 12 Manual Therapy Techniques decongestive STM to calf, knee , thigh with emphasis in mid to proximal thigh Gait & Stair Training Gait Training/Stairs Minutes (minutes) 8 Gait & Stair Training Comments 100' x 2 with cueing for heel strike and UE use walker, transferring sit to/from stand properly Treatment Minutes Untimed Code Treatment Minutes 20 Timed Code Treatment Minutes 32 Total Treatment Time 52 Billing Units Manual Therapy Units 1 Therapeutic Exercise Units 1 Re-Evaluation Units 1 Assessment/Impression Assessment/Impression Pt.is a 71 y/o male who presents 3 days after L TKA with significant limitation in AROM, lack of strength, hypersensitivity and antalgic gait. His extension improved by 20 degrees after manual work. He needed significant cueing for heel strike an adjustment of his walker height and proper use of AD in transition sit to/from stand. Additionally he didn't take his pain medication prior to session and had some nausea. He made good gains within session. Unsure he will be ready to head to [place] at the end of the month. Treatment will work to restore gait, strength and ROM so he can return to [facility]ent[facility] activities. Plan of Care Physical Therapy Goals SHORT TERM GOALS: (2-3 weeks) 1. Pt. able to ambulate 100 feet with FWW with normal gait pattern. 2. Pt. to have ROM 0-110 to assist in transferring in/out of car. 3. Pt. able to complete SLR to get leg in and out of bed/car /shower independently. SECTION MAINTAINER GOALS: (4+ weeks) 1. Pt. to have 5/5 strength. 2. Pt. to have 0-120 degrees or more knee ROM to allow proper technique up and down stairs. 3. Pt. able to get up and down off the floor to play with grandchildren. 4. Pt. able to ambulate for 30 minutes independently with pain less than 2/10. Daily Plan of Care Continue per POC Daily Plan of Care Comments Ongoing POC to consist of therex, manual therapy, NM re- ed, gait training, modalities prn Recertification Information Initial Certification Date 08/07/21 Recertification Start Date 01/17/22 Recertification Due Date 04/12/22 Reasons to Continue Skilled Therapy s/p L TKA with ROM, strength and gait deficits Rehabilitation Potential Good Continued Plan of Care and Interventions therex, NM re-ed, manual therapy, gait training, modalities prn Provider Signature Shows Agreement With POC & Medical Necessity Physician Comment/Change Comment or Changes
== END 2022-02-28 16:18 | disposition home or self-care (01) ==
PROVIDERS: PCP Family Medicine; Visit Provider Orthopaedic Surgery Sports Medicine
DX: M17.12 Unilateral primary osteoarthritis, left knee (principal); Z96.652 Presence of left artificial knee joint; Z51.89 Encounter for other specified aftercare
CPT/HCPCS: 97016; 97032; 97033; 97110; 97116; 97140; 97164; 97535

== ENCOUNTER 2022-11-11 07:34 | Outpatient (CLI) | payer MEDICARE, SELFPAY | END 2022-11-11 07:35 | disposition home or self-care (01) | LOC: NFLDREF 11-13 10:34 | PROVIDERS: PCP Family Medicine; Referring Provider Family Medicine; Visit Provider Family Medicine | DX: E03.9 Hypothyroidism, unspecified (principal); E11.42 Type 2 diabetes mellitus with diabetic polyneuropathy; E78.2 Mixed hyperlipidemia; I10 Essential (primary) hypertension | CPT/HCPCS: 80053; 80061; 82043; 82570; 84443 ==

== ENCOUNTER 2022-11-28 07:55 | Outpatient (CLI) | payer MEDICARE, SELFPAY | END 2022-11-28 07:56 | disposition home or self-care (01) | LOC: NFLDREF 11-30 20:04 | PROVIDERS: PCP Family Medicine; Referring Provider Family Medicine; Visit Provider Family Medicine | DX: I10 Essential (primary) hypertension (principal); Z12.5 Encounter for screening for malignant neoplasm of prostate | CPT/HCPCS: 80048; 84153 ==

== ENCOUNTER 2023-05-28 08:13 | Outpatient (CLI) | payer MEDICARE, SELFPAY ==
--- OUTSIDE RECORDS SUMMARY | 2023-06-05 12:29 | XMS_ITS | Referral Summary ---
Author Name Unknown Organization [facility] Address [facility] [place] [facility] 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 Take 81 mg by mouth daily 30 tablet 1 03/25/2014 Active hydrochlorothiazide 12.5 MG TABS tablet Take 1 tablet (12.5 mg) by mouth daily 30 tablet 03/04/2017 Active Social History Tobacco Use Types Packs/Day Years Used Date Smoking Tobacco: Never Alcohol Use Standard Drinks/Week Comments Yes 0 (1 standard drink = 0.6 oz pur e alcohol) social Sex and Gender Information Value Date Recorded Sex Assigned at Not on file Gender Identity Not on file Sexual Orientation Not on file Last Filed Vital Signs Vital Sign Reading Time Taken Comments Blood Pressure 175/109 03/04/2017 8:15 PM LAWN CARE TECHNICIAN Pulse 68 03/04/2017 6:32 PM LAWN CARE TECHNICIAN Temperature 36.3 ??C (97.4 ??F) 03/04/2017 6:32 PM CS T Respiratory Rate 14 03/04/2017 8:15 PM LAWN CARE TECHNICIAN Oxygen Saturation 93% 03/04/2017 8:00 PM LAWN CARE TECHNICIAN Inhaled Oxygen Concentration - - Weight 104.3 kg (230 lb) 03/25/2014 9:13 AM LAWN CARE TECHNICIAN Height 175.3 cm (5' 9) 03/25/2014 9:13 AM LAWN CARE TECHNICIAN Body Mass Index 33.97 03/25/2014 9:13 AM LAWN CARE TECHNICIAN Plan of Treatment Not on file Care Teams Curtain Roller Assembler Relationship Specialty Start Date End Date Victor Manuel Olea MD PCP - General 03/04/17
--- OUTSIDE RECORDS SUMMARY | 2023-06-05 12:29 | XMS_ITS | Clinical Summary ---
Author Name Unknown Organization [facility] Address [address] [place] [address] Care Team Providers Care Hand Slitter Name Role Phone Unavailable Primary Care Provider Unavailabl e Allergies No known active allergies Active Problems Problem Noted Date Diagnosed Date Polyneuropathy, unspecified 04/04/2015 Anesthesia of skin 03/17/2015 Benign neoplasm of colon 03/28/2008 Overview: Overview: colonoscopy 03/2008, Colonoscopy in 3 years. Colonoscopy 04/2011 large polyp repeat in 6 months Colonoscopy 11/2011 benign tissue repeat in 3 years Colonoscopy 12/2014 polyps repeat in 5 years Sensorineural hearing loss, bilateral 03/20/2007 Social History Tobacco Use Types Packs/Day Years Used Date Smoking Tobacco: Never Smokeless Tobacco: Never Sex and Gender Information Value Date Recorded Sex Assigned at Male 12/11/2017 10:53 AM CDT Gender Identity Male 12/11/2017 10:53 AM CDT Sexual Orientation Straight 12/11/2017 10 :53 AM CDT Last Filed Vital Signs Vital [...] Comments Colonoscopy 1950 Hepatitis C Screening 1950 Depression Assessment (PHQ-2) 1951 Yearly Review of HCD 2002 RSV 60+ Yrs (1 - 1-dose 60+ series) 2012 Zoster Vaccine (2 of 3) 04/01/2014 02/04/2014 Pneumococcal 65+ (2 of 2 - P PSV23 or PCV20) 12/15/2018 12/15/2017, 11/25/2014, 07/15/2014 COVID-19 Vaccine ( season) 2022 Influenza Vaccine (Season Ended) 2023 12/16/19 18, 12/27/2010 Adult Tetanus Booster 07/15/2024 07/15/2014
--- OUTSIDE RECORDS SUMMARY | 2023-06-05 12:29 | XMS_ITS | Clinical Summary ---
Author Name Unknown Organization [facility] Address [facility] [place] [address] Care Team Providers Care Head Custodian Name Role Phone Victor Manuel Olea MD [...] Comments Blood Pressure 175/109 03/04/2017 8:15 PM SUPERVISOR CARDING Pulse 68 03/04/2017 6:32 PM SUPERVISOR CARDING Temperature 36.3 ??C (97.4 ??F) 03/04/2017 6:32 PM CS T Respiratory Rate 14 03/04/2017 8:15 PM SUPERVISOR CARDING Oxygen Saturation 93% 03/04/2017 8:00 PM SUPERVISOR CARDING Inhaled Oxygen Concentration - - Weight 104.3 kg (230 lb) 03/25/2014 9:13 AM SUPERVISOR CARDING Height 175.3 cm (5' 9) 03/25/2014 9:13 AM SUPERVISOR CARDING Body Mass Index 33.97 03/25/2014 9:13 AM SUPERVISOR CARDING Plan of Treatment Not on file Care Teams Head Custodian Relationship Specialty Start Date End Date Victor Manuel Olea MD PCP - General 03/04/17
--- OUTSIDE RECORDS SUMMARY | 2023-06-05 12:29 | XMS_ITS | Clinical Summary ---
Author Name Unknown Organization [facility] Address [place], [place] [address] Care Team Providers Care Turbine Measurements Engineer Name Role Phone Mary Vasquez AuD Unavailable [phone] Davey Lancaster MD Primary Care Provider [phone] Allergies No known active allergies Medications Medication Sig Dispensed Refills Start Date End Date Status FIBERCON 625 MG TAB take two tablets in the morning 60 0 03/25/2008 Active Meperidine, PF, (DEMEROL, PF,) 75 mg/mL Syrg Inject intravenous. Per Dr.Gadek STEVENSON 1 Syringe 0 05/02/2011 Active aspirin (ECOTRIN) 81 mg enteric coated tablet Take 1 tablet by mouth once daily with a meal. 30 tablet 0 12/16/2014 Active metFORMIN (GLUCOPHAGE XR) 750 mg Extended-Release tablet Take 1 tablet by mouth once daily with evening meal. 30 tablet 0 12/16/2014 Active pregabalin (LYRICA) 50 mg capsule 08/27/2019 Active hydroCHLOROthiazide (HCTZ) 25 mg tablet 08/27/2019 Activ e allopurinoL (ZYLOPRIM) 100 mg tablet 08/27/2019 Active loratadine (CLARITIN) 10 mg tablet Take 10 mg by mouth. 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 Colonoscopy 04/2011 large polyp repeat in 6 months Colonoscopy 11/2011 benign tissue repeat in 3 years Colonoscopy 12/2014 polyps repeat in 5 years Colonoscopy 09/2019 four polyps, repeat in 3 years, PEG 8L Sensorineural hearing loss, bilateral 03/20/2007 Immunizations Name Administration Dates Next Due Zoster (Zostavax-ZVL, live) 02/04/2014 Social History Tobacco Use Types Packs/Day Years Used Date Smoking Tobacco: Never Smokeless Tobacco: Never Tobacco Cessation:Counseling Given: Yes Alcohol Use Standard Drinks/Week Comments Not Asked 0 (1 standard drink = 0.6 oz pur e alcohol) Sex and Gender Information Value Date Recorded Sex Assigned at Not on file Gender Identity Not on file Sexual Orientation Not on file Obstetrics History Last Filed Vital Signs Vital Sign Reading Time Taken Comments Blood Pressure 141/83 08/27/2022 2:49 PM CDT Pulse 61 08/27/2022 2:49 PM CDT Temperature - - Respiratory Rate 16 08/27/2022 2:49 PM CDT Oxygen Saturation 95% 08/27/2022 2:49 PM CDT Inhaled Oxygen Concentration - - Weight 106.3 kg (234 lb 6.4 oz) 013 10:02 AM CDT Height - - Body Mass Index - - Plan of Treatment Health Maintenance Due Date Last Done Comments Tdap 10/11/1963 Depression screening for age 12+ 1964 BMI (ht and wt on same day) for age 18+ 1970 Hepatitis C screening for ag e 18-79 1970 Tetanus booster 1972 Lipids for age 45-75 1997 Zoster (shingles) series for age 50+ (2 of 3) 04/01/2014 02/04/2014 Medicare Wellness for age 65+ 2017 Pneumococcal series for age 65+ (1 of 1 - PCV) 2017 COVID-19 vaccine series (3 - 2022- season) 2022 12/02/2021, 05/29/2021 Influenza for age 65+ 10/12/2023 Colonoscopy through age 75 08/27/202508/27, 08/27/2022, 09/15/2019, Additional history exists Procedures Procedure Name Priority Date/Time Associated Diagnosis Comments COLONOSCOPY 08/27/2022 1:52 PM CDT Benign neoplasm of colon, unspecified part of colon History of colon polyps from Last 3 Months or Most Recently Relevant to Health Maintenance Results * COLONOSCOPY (08/27/2022 1:52 PM CDT) 08/27/2022 1:52 PM CDT Narrative Transcriptions Nic Parker MD - 08/27/2022 2:37 PM CDT Patient Name: Ciro Jasso Procedure Date: 08/27/2022 Gender: Male Date of : 1950 Admit Type: Outpatient Procedure: Colonoscopy Proceduralist: Nic Parker MD , Ewa Pierson, RN(Nurse), Arielle Contreras (Nurse) Indications/Pre-Op Diagnosis: High risk colon cancer surveillance:Personal history of adenoma (10 mm or greater insize), Last colonoscopy: September 2019 Medications: Fentanyl 100 micrograms IV, Midazolam 4 mgIV, The level of sedation administered wasmoderate Procedure Description: The patient had risks, benefits and alternatives explained to andgave informed consent. The patient had a stable cardiopulmonary status and judged an adequate candidate for conscious sedation. The endoscope [id number] was passed through the anus andadvanced to the cecum, identified by appendiceal orifice and ileocecal valve.The colonoscopy was performed without difficulty. The patient toleratedthe procedure well. The quality of the bowel preparation was good. The ileocecal valve, appendiceal orifice, and rectum were photographed. Complications: No immediate complications. Estimated Blood Loss & Specimen: Estimated blood loss: none. Estimated blood loss: none. Specimen collected - None Findings: The perianal and digital rectal examinations were normal. A tattoo was seen at the hepatic flexure. The tattoo site appeared normal. A 3 mm polyp was found in the transverse colon. The polyp wassessile. The polyp was removed with a cold biopsy forceps. Resection was complete, but the polyp tissue was not retrieved. The colon (entire examined portion) was moderately redundant. A few small-mouthed diverticula were found in the sigmoid colon. The exam was otherwise without abnormality. Impressions/Post-Op Diagnosis: - A tattoo was seen at the hepatic flexure. The tattoo site appeared normal. - One 3 mm polyp in the transverse colon, removed with a cold biopsy forceps. Complete resection. Polyp tissue not retrieved. - Redundant colon. - Diverticulosis in the sigmoid colon. - The examination was otherwise normal. Recommendation: - Patient has a contact number available for emergencies. The signsand symptoms of potential delayed complications were discussed with the patient. Return to normal activities tomorrow. Written discharge instructions were provided to the patient. - Resume previous diet. - Continue present medications. - Await pathology results. - Repeat colonoscopy in 5 years for surveillance. - For future colonoscopy the patient will require an extended preparation, Peg 8L. If there are any questions, please contact the medical management trainer. Moderate Sedation: A time out was performed before the procedure. Moderate (conscious) sedation was administered by the endoscopy nurse and supervised bythe endoscopist. The following parameters were monitored: oxygensaturation, heart rate, blood pressure, EKG, CO2, respiratory rate, adequacy of pulmonary ventilation and reponse to care. Please refer to the patient's medical record flowsheets and nursing notes for moderate sedation details. Total physician intraservice time was 21 minutes. Nic Parker MD 08/27/2022 2:37:31 PM This report has been signed electronically. Note Initiated On: 08/27/2022 1:52 PM Procedure Code(s): --- Professional --- 64425, Colonoscopy, flexible; with biopsy, single or multiple Diagnosis Code(s): --- Professional --- Z86.010, Personal history of colonicpolyps D12.3, Benign neoplasm of transverse colon (hepatic flexure or splenic flexure) K57.30, Diverticulosis of large intestine without perforation or abscess withoutbleeding Q43.8, Other specified congenitalmalformations of intestine CPT copyright 2021 [employer]. All rights reserved. The codes documented in this report are preliminary and upon donation worker reviewmay be revised to meet current compliance requirements. Scope In: 2:07:14 PM Scope Withdrawal Time 0 hours 13 minutes 10 seconds Scope Out: 2:25:14 PM Nic Parker MD PROCEDURE ORD from Last 3 Months or Most Recently Relevant to Health Maintenance Care Teams Turbine Measurements Engineer Relationship Specialty Start Date End Date Davey Lancaster MD [address] [address] PCP - General Family Practice 08/24/21 Mary Vasquez AuD Provider Audiology 07/11/11
--- OUTSIDE RECORDS SUMMARY | 2023-06-05 12:30 | XMS_ITS | Referral Summary ---
Author Name Unknown Organization [facility] Address [address] [place] [address] Care Team Providers Care Hplc Chemist Name Role Phone Unavailable Primary Care Provider [...] 12/11/2017 10:53 AM CDT Plan of Treatment Not on file
== END 2023-05-28 08:14 | disposition home or self-care (01) ==
LOC: NFLDREF 06-05 12:25
PROVIDERS: PCP Family Medicine; Referring Provider Family Medicine; Visit Provider Family Medicine
DX: E11.9 Type 2 diabetes mellitus without complications (principal); E78.5 Hyperlipidemia, unspecified; I10 Essential (primary) hypertension; Z79.84 Long term (current) use of oral hypoglycemic drugs; Z13.21 Encounter for screening for nutritional disorder
CPT/HCPCS: 80053; 80061; 82607

== ENCOUNTER 2023-11-20 07:35 | Outpatient (CLI) | payer MEDICARE, SELFPAY ==
--- OUTSIDE RECORDS SUMMARY | 2023-11-21 11:44 | XMS_ITS | Referral Summary ---
Author Organization [facility] Address [address] [place] [address]. [place] [address] Care Team Providers Care Criminal Justice Department Chair Name Role Phone Victor Manuel Olea MD [...] Comments Blood Pressure 175/109 03/04/2017 8:15 PM SENIOUR INSIGHT MANAGER Pulse 68 03/04/2017 6:32 PM SENIOUR INSIGHT MANAGER Temperature 36.3 ??C (97.4 ??F) 03/04/2017 6:32 PM CS T Respiratory Rate 14 03/04/2017 8:15 PM SENIOUR INSIGHT MANAGER Oxygen Saturation 93% 03/04/2017 8:00 PM SENIOUR INSIGHT MANAGER Inhaled Oxygen Concentration - - Weight 104.3 kg (230 lb) 03/25/2014 9:13 AM SENIOUR INSIGHT MANAGER Height 175.3 cm (5' 9) 03/25/2014 9:13 AM SENIOUR INSIGHT MANAGER Body Mass Index 33.97 03/25/2014 9:13 AM SENIOUR INSIGHT MANAGER Plan of Treatment Not on file Care Teams Criminal Justice Department Chair Relationship Specialty Start Date End Date Victor Manuel Olea MD PCP - General 03/04/17
--- OUTSIDE RECORDS SUMMARY | 2023-11-21 11:44 | XMS_ITS | Referral Summary ---
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 [...]
--- OUTSIDE RECORDS SUMMARY | 2023-11-21 11:44 | XMS_ITS | Clinical Summary ---
Author Organization [facility] Address [address] [place] [address] Care Team Providers Care Framework Developer Name Role Phone Unavailable Primary Care Provider [...] (PHQ-2) 1951 Yearly Review of HCD 2002 Zoster Vaccine (2 of 3) 04/01/2014 02/04/2014 Pneumococcal 65+ (2 of 2 - P PSV23 or PCV20) 12/15/2018 12/15/2017, 11/25/2014, 07/15/2014 COVID-19 Vaccine ( - season) 2023 Influenza Vaccine (#1) 2023 12/15/2017, 2010 Adult Tetanus Booster 07/15/2024 07/15/2014 RSV Vaccines (1 - 1-dose 75+ series) 10/11/2027
--- OUTSIDE RECORDS SUMMARY | 2023-11-21 11:44 | XMS_ITS | Clinical Summary ---
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 Colonoscopy 04/2011 large polyp repeat in 6 months Colonoscopy 11/2011 benign tissue repeat in 3 years Colonoscopy 12/2014 polyps repeat in 5 years Colonoscopy 09/2019 four polyps, repeat in 3 years, PEG 8L Sensorineural hearing loss, bilateral 03/20/2007 Encounters Date Type Department Care Team Description 09/23/2023 Telephone [facility] [address] [place] [address] Delbert Sotelo MD DME Supply (CP[employer] Machine) from Last 3 Months Immunizations Name Administration Dates Next Due Zoster [...] PCV) 2017 COVID-19 vaccine series (3 - 2023- season) 2023 12/02/2021, 05/29/2021 Influenza for age 65+ 10/12/2023 [...] - 08/27/2022 2:37 PM CDT Patient Name: iCro Jasso Procedure Date: 08/27/2022 Gender: Male Date [...] adequate candidate for conscious sedation. The endoscope [id number] was passed through the anus andadvanced to [...] there are any questions, please contact the insurance verification clerk. Moderate Sedation: A time out was performed [...] 1:52 PM Procedure Code(s): --- Professional --- 52937, Colonoscopy, flexible; with biopsy, single or multiple Diagnosis Code(s): --- Professional --- Z86.010, Personal history of colonicpolyps D12.3, Benign neoplasm of transverse colon (hepatic flexure or splenic flexure) K57.30, Diverticulosis of large intestine without perforation or abscess withoutbleeding Q43.8, Other specified congenitalmalformations of intestine CPT copyright 2021 [employer]. All rights reserved. The codes documented in this report are preliminary and upon reference services head reviewmay be revised to meet current compliance requirements. Scope In: 2:07:14 PM Scope Withdrawal Time 0 hours 13 minutes 10 seconds Scope Out: 2:25:14 PM Nic Parker MD PROCEDURE ORD from Last 3 Months or Most Recently Relevant to Health Maintenance Care Teams Statistical Developer Relationship Specialty Start Date End Date Davey Lancaster MD PCP - General Family Practice 08/24/21 Mary Vasquez AuD Provider Audiology 07/11/11
--- OUTSIDE RECORDS SUMMARY | 2023-11-21 11:44 | XMS_ITS | Clinical Summary ---
Author Organization [facility] Address [address] [place] [address]. [place] [address] Care Team Providers Care Funeral Greeter Name Role Phone Victor Manuel Olea MD [...] Comments Blood Pressure 175/109 03/04/2017 8:15 PM TERMINAL WORKER Pulse 68 03/04/2017 6:32 PM TERMINAL WORKER Temperature 36.3 ??C (97.4 ??F) 03/04/2017 6:32 PM CS T Respiratory Rate 14 03/04/2017 8:15 PM TERMINAL WORKER Oxygen Saturation 93% 03/04/2017 8:00 PM TERMINAL WORKER Inhaled Oxygen Concentration - - Weight 104.3 kg (230 lb) 03/25/2014 9:13 AM TERMINAL WORKER Height 175.3 cm (5' 9) 03/25/2014 9:13 AM TERMINAL WORKER Body Mass Index 33.97 03/25/2014 9:13 AM TERMINAL WORKER Plan of Treatment Not on file Care Teams Funeral Greeter Relationship Specialty Start Date End Date Victor Manuel Olea MD PCP - General 03/04/17
== END 2023-11-20 07:36 | disposition home or self-care (01) ==
LOC: NFLDREF 11-21 11:37
PROVIDERS: PCP Family Medicine; Referring Provider Family Medicine; Visit Provider Family Medicine
DX: E78.5 Hyperlipidemia, unspecified (principal); I10 Essential (primary) hypertension; E03.9 Hypothyroidism, unspecified; E11.65 Type 2 diabetes mellitus with hyperglycemia; Z12.5 Encounter for screening for malignant neoplasm of prostate; Z13.21 Encounter for screening for nutritional disorder
CPT/HCPCS: 80053; 80061; 82043; 82570; 82607; 84439; 84443; G0103

== ENCOUNTER 2024-01-27 08:16 | Outpatient (CLI) | payer MEDICARE, SELFPAY | END 2024-01-27 08:17 | disposition home or self-care (01) | LOC: NFLDREF 08:17 | PROVIDERS: PCP Family Medicine; Visit Provider Family Medicine | DX: M10.9 Gout, unspecified (principal) | CPT/HCPCS: 80053; 80061; 84439; 84443; 84550 ==

== ENCOUNTER 2024-02-05 07:43 | Outpatient (CLI) | payer MEDICARE, SELFPAY | END 2024-02-05 07:44 | disposition home or self-care (01) | LOC: NFLDREF 02-06 06:28 | PROVIDERS: PCP Family Medicine; Referring Provider Family Medicine; Visit Provider Family Medicine | DX: I10 Essential (primary) hypertension (principal) | CPT/HCPCS: 80048 ==

== ENCOUNTER 2024-06-28 08:34 | Outpatient (CLI) | payer MEDICARE, BC, SELFPAY | END 2024-06-28 08:35 | disposition home or self-care (01) | LOC: NFLDREF 07-06 22:07 | PROVIDERS: PCP Family Medicine; Referring Provider Family Medicine; Visit Provider Family Medicine | DX: E78.2 Mixed hyperlipidemia (principal); I10 Essential (primary) hypertension; E03.9 Hypothyroidism, unspecified; E11.42 Type 2 diabetes mellitus with diabetic polyneuropathy; Z79.84 Long term (current) use of oral hypoglycemic drugs | CPT/HCPCS: 80053; 80061; 84443 ==

== ENCOUNTER 2024-08-02 08:10 | Outpatient (CLI) | payer MEDICARE, BC, SELFPAY | END 2024-08-02 08:11 | disposition home or self-care (01) | LOC: NFLDREF 14:48 | PROVIDERS: PCP Family Medicine; Referring Provider Family Medicine; Visit Provider Family Medicine | DX: M10.9 Gout, unspecified (principal) | CPT/HCPCS: 80053; 84550 ==

== ENCOUNTER 2025-01-28 08:05 | Outpatient (CLI) | payer MEDICARE, BC, SELFPAY | END 2025-01-28 08:06 | disposition home or self-care (01) | LOC: NFLDREF 02-04 05:45 | PROVIDERS: PCP Family Medicine; Referring Provider Family Medicine; Visit Provider Family Medicine | DX: M10.9 Gout, unspecified (principal); E11.42 Type 2 diabetes mellitus with diabetic polyneuropathy; E03.9 Hypothyroidism, unspecified; E78.2 Mixed hyperlipidemia; I10 Essential (primary) hypertension; Z12.5 Encounter for screening for malignant neoplasm of prostate | CPT/HCPCS: 80053; 80061; 82043; 82570; 82607; 84443; 84550; G0103 ==